=== PATIENT | female | born 1960 | race Caucasian/White ===

== ENCOUNTER 2020-08-23 10:15 | Outpatient (CLI) | payer BC, SELFPAY ==
--- NOTE | 2020-08-23 | ECG_ITS ---
Measurements Intervals [place] Rate: 85 P: 61 MA: 176 QRS: 27 QRSD: 78 T: 44 QT: 367 QTc: 438 Interpretive Statements SINUS RHYTHM POSSIBLE LEFT ATRIAL ENLARGEMENT CANNOT RULE OUT SEPTAL INFARCT, AGE INDETERMINATE ABNORMAL ECG Electronically Signed On 08-23-2020 10:34:51 CDT by Maverick Nice D.O.
== END 2020-08-23 10:16 | disposition home or self-care (01) ==
LOC: ANHCARD 10:18
PROVIDERS: PCP Internal Medicine; Visit Provider Podiatrist Foot & Ankle Surgery
DX: R03.0 Elevated blood-pressure reading, without diagnosis of hypertension (principal); R94.31 Abnormal electrocardiogram [ECG] [EKG]
CPT/HCPCS: 93005

== ENCOUNTER → 2020-09-16 08:26 | Outpatient (CLI) | payer BC, SELFPAY ==
[2020-09-16 16:57] LABS: SARS-CoV-2 RNA PCR Negative
== END ==
PROVIDERS: PCP Internal Medicine; Visit Provider Internal Medicine
DX: R05 Cough (principal); Z20.822 Contact with and (suspected) exposure to COVID-19
CPT/HCPCS: C9803; U0003; U0005

== ENCOUNTER 2020-12-02 09:29 | Outpatient (CLI) | payer BC, SELFPAY ==
--- NOTE | 2020-12-02 12:39 | WPDPFTINT ---
PFT Procedure Performed PFT Procedure Performed Plethysmography (Lung Vol) Diffusing Cap (DLCO) Flow Vol Loop Spirometry w/o Bronchodil PFT Interpretation This is a pulmonary function test with spirometry, plethysmography and diffusing capacity. The test was performed and results interpreted in accordance with the 2019 and 2005 ATS/ERS Task Force guidelines respectively using the Global Lung Function Initiative-2012 reference equations. Patient demonstrated good effort and cooperation. Reproducibility criteria were met. The quality of the spirometry maneuver was Grade A. Findings: Spirometry: The expiratory flow tracing demonstrates the mid expiratory plateau in airflow creating a mild convex inflection referred to as the knee pattern in 2 of three efforts. The contour the inspiratory flow tracing is normal. The FVC is 3.08 L, 97% predicted. The FEV1 is 2.50, 100% predicted. The FEV1: FVC ratio was 81%. Plethysmography: The total lung capacity is 4.97, 98% predicted. The functional residual capacity is 2.14 L, 74% predicted. The residual volume is 1.89 L, 95% predicted. Diffusing capacity: The absolute diffusion capacity is 18.0, 83% predicted. The diffusing capacity corrected for alveolar volume is 4.29, 97% predicted. Impression: The expiratory flow tracing demonstrates a reproducible mid explored expiratory plateau in airflow creating a convex inflection referred to as the knee pattern in 2 of 3 efforts. This pattern can be a normal variant or pathologic and has been attributed to a choke point section of the bronchial tree. The normal variant is more common in younger female patients, decreases with age and is more pronounced with a post bronchodilator efforts. The pattern has also been described with kyphosis, kyphoscoliosis, central obstructing mass, and post lung transplantation. Clinical correlation is recommended. The spirometry is normal without evidence of an obstructive abnormality. The lung volumes are normal. The diffusing capacity is normal. There are no prior studies for comparison
== END 2020-12-02 09:30 | disposition home or self-care (01) ==
LOC: ANHPFT 09:31
PROVIDERS: PCP Internal Medicine; Visit Provider Internal Medicine
DX: R05 Cough (principal)
CPT/HCPCS: 94375; 94726; 94729

== ENCOUNTER → 2020-12-18 01:09 | Outpatient (CLI) | payer BC, SELFPAY ==
[2020-12-19 01:36] LABS: SARS-CoV-2 RNA PCR Negative
== END ==
PROVIDERS: PCP Internal Medicine; Visit Provider Internal Medicine Gastroenterology
DX: Z01.812 Encounter for preprocedural laboratory examination (principal); Z20.822 Contact with and (suspected) exposure to COVID-19
CPT/HCPCS: C9803; U0003; U0005

== ENCOUNTER 2020-12-22 01:56 | Day surgery (SDC) | payer BC, SELFPAY ==
[2020-12-14 10:02] VITALS: BMI 34.4
[2020-12-22 09:26] VITALS: BP 150/90; PULSE 75; RESP 20; TEMP 35.9; O2SAT 100
[2020-12-22] MEDS: LACTATED RINGERS 1,000 ML 150 ML IV CONT (09:40)
--- NOTE | 2020-12-22 09:45 | WPDANESEPPF ---
Anes - Initial Pre Proc Eval Procedure: Operation Date: 12/22/20 10:00 Proposed Procedures p Screening Colonoscopy - Paul Eastman MD Date/Time: 12/22/20 09:45 Surgeon: Paul Eastman MD Pre Op Diagnosis: neoplasm screening Patient Data Age: 60 Gender: F Height: 1.63 m Weight: 91 kg Last Vital Signs Temp 35.9 C L 12/22/20 09:26 Pulse 75 12/22/20 09:26 Resp 20 12/22/20 09:26 BP 150/90 H 12/22/20 09:26 Pulse Ox 100 12/22/20 09:26 Allergies Allergy/AdvReac Type Severity Reaction Status Date / Time No Known Allergies Allergy Verified 12/22/20 09:25 Home Medications Medication Instructions Recorded Confirmed Type No Home Medications 12/14/20 12/22/20 History Patient hx anesthesia problems: none Family hx anesthesia problems: none [facility] Past Medical History Medical History (Updated 12/22/20 @ 09:45 by Fabricio Goode MD) Obesity Surgical History Surgical History (Updated 12/22/20 @ 09:45 by Fabricio Goode MD) History of cholecystectomy Social History Social History Smoking status: Never smoker Alcohol intake: current Drinks per week: 1 Substance use: never Substance use type: does not use Living arrangements: with family Spiritual care concerns: No Anes - Eval Final PreProcedure Day of Procedure 12/22/20 09:45 Patient weight: obese Heart: regular rate and rhythm Lungs: clear to auscultation Airway: Mallampati scale class II Neurological: alert and oriented Last oral intake: >/= 8 hours ASA classification: III Emergent: no Anesthetic plan: proceed Anesthesia type and monitoring: general GIVS and standard monitoring Informed Consent: The patient's anesthetic plan and its attendant risks and benefits were discussed with the patient/family/POA. Questions were solicited and answers provided to the satisfaction of the patient/family/POA.
--- NOTE | 2020-12-22 09:49 | WPDGICN ---
Assessment and Plan Assessment and plan (1) History of colon polyps: Code(s): Z86.010 - Personal history of colonic polyps Status: Acute Assessment and Plan: Patient has a distant history of colon polyps 8 years ago. Plan is for screening colonoscopy at this time. further recommendations will be given after endoscopy. GI Consult Note Consult date/time: 12/22/20 09:49 HPI: Karlie Gaytan is a 60 year old female Presents for screening colonoscopy. Patient reports having had colon polyps by colonoscopy 8 years ago. Patient states that her current weight appetite bowel movements are normal. Patient denies abdominal pain. Her family history is non contributory. She has had no bleeding. Review of Systems Review of Systems: All systems reviewed & are unremarkable except as noted in HPI and below PMFSH Past Medical History Medical History (Updated 12/22/20 @ 09:50 by Paul Eastman MD) Obesity Surgical History Surgical History (Updated 12/22/20 @ 09:45 by Fabricio Goode MD) History of cholecystectomy Social History Social History Smoking status: Never smoker Alcohol intake: current Drinks per week: 1 Substance use: never Substance use type: does not use Living arrangements: with family Spiritual care concerns: No Meds Home Medications and Allergies Home Medications Medication Instructions Recorded Confirmed Type No Home Medications 12/14/20 12/22/20 History Allergies Allergy/AdvReac Type Severity Reaction Status Date / Time No Known Allergies Allergy Verified 12/22/20 09:25 Vital Signs Vital Signs - 24 hr 12/22/20 09:26 Temperature 96.6 F L Pulse Rate 75 Respiratory Rate 20 Blood Pressure 150/90 H Pulse Oximetry 100 Exam Narrative: Physical exam reveals patient to be alert. Vital signs stable. HEENT exam is unremarkable. Patient is anicteric. Lungs are clear to auscultation and percussion. Heart is without murmur or extra sounds. Abdominal exam bowel sounds are present soft nontender with no organomegaly. Digital external rectal exam is normal.
[2020-12-22] MEDS: SIMETHICONE ORAL SUSPENSION 20 MG/0.3 ML 30 ML BOTTLE 0.6 ML IRRIGATION (10:08)
[2020-12-22 10:19] VITALS: BP 136/74; PULSE 76; RESP 15; O2SAT 98
[2020-12-22 10:29] VITALS: BP 147/93; PULSE 76; RESP 20; O2SAT 98
[2020-12-22 10:39] VITALS: BP 147/91; PULSE 76; RESP 16; O2SAT 99
== END 2020-12-22 10:52 | disposition home or self-care (01) ==
PROVIDERS: PCP Internal Medicine; Visit Provider Internal Medicine Gastroenterology
PROC: 0DJD8ZZ Inspection of Lower Intestinal Tract, Via Natural or Artificial Opening Endoscopic (ICD-10-PCS; CPT 45378; principal; 2020-12-22 10:00)
DX: Z12.11 Encounter for screening for malignant neoplasm of colon (principal); Z86.010 Personal history of colon polyps; K57.30 Diverticulosis of large intestine without perforation or abscess without bleeding; E66.9 Obesity, unspecified; Z68.34 Body mass index [BMI] 34.0-34.9, adult
CPT/HCPCS: 45378; J2001; J2704; J7120

== ENCOUNTER 2021-01-28 14:46 | Emergency (ER) | payer OTHER, BC, SELFPAY ==
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
[2021-01-28 15:03] VITALS: BP 186/99; PULSE 124; RESP 16; TEMP 36.6; O2SAT 99
== END 2021-01-28 15:20 | disposition home or self-care (01) ==
PROVIDERS: Emergency Provider Nurse Practitioner Family; PCP Internal Medicine
DX: S99.921A Unspecified injury of right foot, initial encounter (principal); V49.40XA Driver injured in collision with unspecified motor vehicles in traffic accident, initial encounter; M25.571 Pain in right ankle and joints of right foot; E66.9 Obesity, unspecified; Z68.36 Body mass index [BMI] 36.0-36.9, adult
CPT/HCPCS: 73610; 73630; 99213; G0463

== ENCOUNTER 2024-02-19 11:17 | Outpatient (CLI) | payer BC, SELFPAY ==
--- NOTE | ~2024-02-19 | US_ITS ---
US right upper quadrant INDICATION: Elevated liver function tests PROCEDURE: Realtime right upper abdominal ultrasound. COMPARISON: No prior studies for comparison. FINDINGS: The pancreas is normal without focal mass or pancreatic ductal dilation. Liver echotexture is increased, consistent with fatty infiltration. There is normal directional flow in the portal ve in. Gallbladder surgically absent. Common bile duct measures 5 mm. No sonographic Sanches's sign. IMPRESSION: 1: Fatty infiltration of the liver. Reviewed, dictated and finalized at location B.
== END 2024-02-19 11:18 | disposition home or self-care (01) ==
LOC: GOSHIMG 11:19
PROVIDERS: PCP Physician Assistant; Visit Provider Physician Assistant
DX: K76.0 Fatty (change of) liver, not elsewhere classified (principal); R74.8 Abnormal levels of other serum enzymes
CPT/HCPCS: 76705

== ENCOUNTER 2024-07-24 09:45 | Outpatient (CLI) | payer BC, SELFPAY ==
--- NOTE | 2024-07-24 | ECG_ITS ---
Test Date: 2024-07-24 10:38:23 Measurements Intervals [place] Rate: 66 P: 47 CO: 184 QRS: 9 QRSD: 80 T: 18 QT: 415 QTc: 438 Interpretive Statements SINUS RHYTHM LOW QRS VOLTAGE IN PRECORDIAL LEADS [QRS DEFLECTION < 1.0 mV IN CHEST LEADS] No previous ECG available for comparison Electronically Signed On 07-24-2024 11:48:38 CDT by Luis Alcantar M.D.
[2024-07-24 10:24] LABS: Anion Gap 10 mmol/L (4-12); Blood Urea Nitrogen 18 mg/dL (7-17); Calcium 9.4 mg/dL (8.4-10.2); Carbon Dioxide 29 mmol/L (22-30); Chloride 102 mmol/L (98-107); Estimated Glomerular Filt Rate > 60; Glucose 108 mg/dL (65-110); Potassium 4.5 mmol/L (3.4-5.0); Sodium 141 mmol/L (137-145)
--- OUTSIDE RECORDS SUMMARY | 2024-07-24 10:40 | XMS_ITS | Clinical Summary ---
Author Organization 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 30 Tablet 1 11/01/2021 5:44 PM CDT 2 Active azithromycin (Zithromax Z-Jonathan) 250 mg tablet TAKE 2 TABLETS (500 MG) BY ORAL ROUTE ONCE DAILY FOR 1 DAY THEN 1 TABLET (250 MG) BY ORAL ROUTE ONCE DAILY FOR 4 DAYS 6 Tablet 02/20/2022 2:27 PM CDT 2 Active methylPREDNISol one (Medrol, Jonathan,) 4 mg Tablets, Dose Pack TAKE DIRECTED ON PACKAGE. 21 Tablet 02/22/2022 6:28 PM CDT 2 Active methylPREDNISol one (MEDROL DOSPACK) 4 mg Tablets, Dose Pack USE DIRECTED 21 Tablet 09/17/2022 3:32 PM CDT 3 Active atorvastatin (Lipitor) 20 mg tablet Take 1 Tablet (20 mg) by mouth daily. 90 Tablet 1 01/10/2023 6:06 PM CDT 3 Active semaglutide, weight loss, (Wegovy) 0.25 mg/0.5 mL Pen Injector Inject 0.25 under the skin weekly for 4 weeks, then increase to 0.5 mg weekly. 2 mL 3 Active azithromycin (Zithromax Z-Jonathan) 250 mg tablet TAKE 2 TABLET BY MOUTH ON DAY 1, THEN TAKE 1 TABLET BY MOUTH DAILY FOR DAYS 2-5 6 Tablet 02/26/2023 5:21 PM CDT 3 Active atorvastatin (Lipitor) 20 mg tablet Take 1 Tablet (20 mg) by mouth daily. 90 Tablet 1 09/20/2023 1:07 PM CDT 3 Active atorvastatin (LIPITOR) 20 mg tablet Take 1 Tablet (20 mg) by mouth daily. 90 Tablet 3 02/20/2024 2:54 PM CDT 4 Active tirzepatide, weight loss, (Zepbound) 2.5 mg/0.5 mL Pen Injector Inject 2.5 mg under the skin once weekly 2 mL 4 Active famotidine (PEPCID) 20 mg tablet Take 1 Tablet (20 mg) by mouth daily at bedtime as needed. 30 Tablet 3 02/21/2024 1:23 PM CDT 4 Active omeprazole (PriLOSEC) 40 mg Capsule, Delayed Release(E.C.) Take 1 Capsule (40 mg) by mouth daily in the morning 1/2 to 1 hours before breakfast. 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 90 Tablet 3 05/10/2024 5:13 PM NUCLEAR WORKER TECHNICIAN 4 Active tirzepatide, weight loss, (Zepbound) 2.5 mg/0.5 mL Pen Injector Inject 2.5 mg by subcutaneous injection every 7 days. 2 mL 4 Active atorvastatin (LIPITOR) 20 mg tablet Take 1 Tablet (20 mg) by mouth daily. 90 Tablet 1 05/12/2024 3:45 PM NUCLEAR WORKER TECHNICIAN 5 Active Encounters Date Type Department Care Team Description 07/08/2024 External Device Data [facility] Provider, Abstract 07/08/2024 External Device Data [facility] Provider, Abstract 05/13/2024 External Device Data [facility] Provider, Abstract from Last 3 Months Social History Tobacco Use Types Packs/Day Years Used Date Smoking Tobacco: Never Assessed Comments Unknown Sex and Gender Information Value Date Recorded Sex Assigned at Not on file Legal Sex Female 3:27 PM CDT Gender Identity Not on file Sexual Orientation Not on file Plan of Treatment Health Maintenance Due Date Last Done Comments DTAP/TDAP/TD VACCINES (1 - Tdap) 10/10/1979 HPV/Cotest (21-29) 1981 CERVICAL CANCER SCREENING 1990 HPV/Cotest (30-65) 1990 PAP SMEAR 1990 BREAST CANCER SCREENING 2000 COLORECTAL SCREENING 2005 Colorectal Cancer Screening 2005 FIT-DNA Q 3 years 2005 FIT/FOBT Q 1 year 2005 Flex Sig/CT Colonography Q 5 years 2005 ZOSTER VACCINE (1 of 2) 2010 INFLUENZA VACCINE (#1) 2023 RSV VACCINE (60+ or ) (1 - 1-dose 75+ series) 10/10/2035 PNEUMOCOCCAL VACCINE 0-49 YEARS Aged Out No longer eligible based on patient's age to complete this topic Insurance [employer] Commercial
--- OUTSIDE RECORDS SUMMARY | 2024-07-24 10:41 | XMS_ITS | Data Portability ---
Author Organization [facility] Address [address] [place] [address] Care Team Providers Care Substation Engineer Name Role Phone MAGGY BURR Primary Care Provider Unavailab le Assessment Encounter Date Assessment Date Assessment LastModified by Organization Details LastModified Time 01/23/2024 01/23/2024 Mammogram due in Mar. colonoscopy has had two in the past . will await records to determine timeline. eye exam UTD dental overdue. no dental insurance. labs due. Not available 01/23/2024 11:50:07 Plan of Treatment Reminders Order Date Submit Date Provider Last Modified By Organization Details Last Modified Time Details Appointments ANY 15 2024 09:00A M WILIAN Abraham Not available Not available Not available Lab TSH + free T4, serum [facility]23 [facility]24 [email or web address], [address], [place], [address], 02/12/2024 13:26:19 CMP, serum or plasma 2023 024 [email or web address], [address], [place], [address], 02/12/2024 13:26:19 CBC w/ auto diff 2023 024 [email or web address], [address], [place], [address], 02/12/2024 13:26:19 vitami n B12 + folate , serum or blood 2023 024 [email or web address] [facility], [address], [place], [address], 02/12/2024 13:26:19 lipid panel, serum 2023 024 SHIRLENE [facility], [address], [place], [address], 02/12/2024 13:26:19 HbA1c (hemog lobin A1c), blood 2023 024 [email or web address] [facility], [address], [place], [address], 02/12/2024 13:26:19 insuli n, serum 2023 024 [email or web address] [facility], [address], [place], [address], 02/12/2024 13:01:09 Referral otolar yngolo gist referr al - chroni c nasal conges tion, Xylome tazoli ne user x 30 years. needs struct ural evalua tion. 2023 024 bladimir Alberto, [address], [place], [address], 03/25/2024 14:12:33 Procedures None record ed. Surgeries None record ed. Imaging MAMMO, screen ing, digita l, bilate ral 2023 024 SHIRLENE Not available 07/23/2024 04:10:02 Medication Orders mupiro shy 2 % topica l ointme nt 2023 024 [facility] [address], [address], [place], [place], [id number], 03/05/2024 18:26:46 amoxic illin 875 mg-pot assium clavul anate 125 mg tablet 102023 [facility], [address] , [place], [place], [id number], 03/05/2024 18:26:36 atorva statin 20 mg tablet 2023 [facility], [address] , [place], [place], [id number], 02/20/2024 12:12:26 Zepbou nd 2.5 mg/0.5 mL subcut aneous pen inject or 2023 [facility], [address] [facility] , [place], [place], [id number], 02/20/2024 12:08:27 Patient TargetsNo targets recorded. 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 needs structural evaluation. Referring Physician: Maggy Burr, Internal Medicine, Encounter Date: 01/23/2024 Results Created Date Observation Date Name Description Value Unit Range Abnormal Flag Note LastModifiedBy Organization Detail LastModifiedTime 02/18/2002/19/2024 ALK PHOS ISOEN ZYME alkaline phosphatase 157 IU/L 44-121 above high normal Not Available [facility] ([facility]) [address] [place], [address], 02/19/2024 15:11:24 02/18/20 24 02/19/2024 ALK PHOS ISOEN ZYME liver fraction: 65 % 18-85 Not Available [facility] ([facility]) [address] [place], [address], 02/19/2024 15:11:24 02/18/20 24 02/19/2024 ALK PHOS ISOEN ZYME bone fraction: 27 % 14-68 Not Available [facility] ([facility]) [address] [facility], [place], [address], 02/19/2024 15:11:24 02/18/20 24 02/19/2024 ALK PHOS ISOEN ZYME intestinal frac.: 7 % 0-18 Not Available [facility] ([facility]) [address] [facility], [place], [address], 02/19/2024 15:11:24 02/19/2002/19/2024 US, liver No observ ation record ed. [facility] [address], [place], [address], 02/20/2024 12:07:13 02/20/2004/09/2023 MAMMO , scree jefry, digit al, bilat eral No observ ation record ed. Not Available 2023 22:47:33 02/20/20 24 11/11/2013 colon oscop y scree jefry (PROC ) No observ ation record ed. [facility] Not Available 2023 11:52:31 Result Notes None recorded. Problems Name Problem SNOMED Code Status Onset Date Resolution Date Notes Provider Name and Address Organization Details Recorded Time Body mass index 30+ - obesity 919884027 Active 2023 WILIAN Abraham Attn: Scott mojica,[address] [facility], [place], [address], [facility] 4 11:25:42 Long-term drug therapy Active 2023 WILIAN Abraham Attn: Scott mojica,[address] [facility], [place], [address], [facility] 4 11:25:53 Hyperlipidemia 41832434 Active 2023 WILIAN Abraham Attn: Scott mojica,[address] [facility], [place], [address], [facility] 4 11:25:54 Obesity 249045247 Active 2023 WILIAN Abraham Attn: Scott mojica,[address] [facility], [place], [address], [facility] 4 11:25:58 Nasal congestion 36574214 Active 2023 WILIAN Abraham Attn: Scott mojica,[address] [facility], [place], [address], [facility] 18:47:37 Elevated blood-pressure reading without diagnosis of hypertension 000103848 Active 2023 WILIAN Abraham Attn: Scott mojica,[address] [facility], [place], [address], [facility] 4 12:15:13 Prediabetes 053603770 Active 2023 WILIAN Abraham Attn: Scott mojica,[address] [facility], [place], [address], [facility] 12:15:14 Problem Notes None recorded. Procedures Surgical History Date Name Laterality Status Provider Name and Address Organization Details Recorded Time colonoscopy completed Lashanda Freeman [facility] 02/20/2024 12:15:50 Imaging Results Imaging Date Name Status LastModified by Organiz ation Details LastModified Time 02/19/2024 US, liver completed [facility] [address], [place], [address], 02/20/2024 12:07:13 04/09/2023 MAMMO, screening, digital, bilateral completed Information not available 03/02/2024 22:47:33 11/11/2013 colonoscopy screening (PROC) completed [facility] Information not available 02/20/2024 11:52:31 Procedure Notes None recorded. Medical Equipment None Reported. Allergies No known drug allergies Medications Name Sig Start Date Stop Date Status Note LastModified by Organization Details LastModified Time losartan 50 mg tablet Take 1 tablet every day by oral route, for blood pressure. active Not Available Not Available No t Available atorvastati n 20 mg tablet Take 1 Tablet (20 mg) by mouth daily. 2024 active Not Available Not Available Not Avai lable azithromyci n 250 mg tablet 01/22 completed Not Available Not Available Not Available omeprazole 40 mg capsule,del ayed release active Not Available Not Available Not Available famotidine 20 mg tablet active Not Available Not Available Not Available mupirocin 2 % topical ointment 03/05 completed Not Available Not Available Not Available methylpredn isolone 4 mg tablets in a dose pack 03/05 completed Not Available Not Available Not Available amoxicillin 875 mg-potassiu m clavulanate 125 mg tablet Take 1 tablet every 12 hours by oral route with meal(s). 03/05 completed Not Available Not Available Not Available Vitamin D2 active Not Available Not Av ailable Not Available Xhance 93 mcg/actuati on breath activated aerosol INSTILL 1 SPRAY IN EACH NOSTRIL TWICE DAILY. active Not Available Not Available No t Available Zepbound 2.5 mg/0.5 mL subcutaneou s pen injector Inject 2.5 mg every week by subcutane ous route. 2023 active Not Available Not Available Not Avai lable Vitals Date Recorded Body height Respiratory rate Body mass index (BMI) Body weight Heart rate Oxygen saturation Oxygen saturation in Arterial blood by Pulse oximetry Systolic blood pressure Diastolic blood pressure Provider Name and Address Organization Details Last Updated DateTime 4 165.1 cm 20 /min 36.6 kg/m2 69292.9 3 g 88 /min 98 % 98 % 152 mm[Hg] 90 mm[Hg] Erlinda Rivas MA [facility] 4 11:15:15 Date Recorded Systolic blood pressure Diastolic blood pressure Provider Name and Address Organization Details Last Updated DateTime 01/23/2024 150 mm[Hg] 80 mm[Hg] WILIAN Abraham Attn: Accounting[address] [place], [address], [facility] 01/23/2024 12:05:23 Date Recorded Body height Body mass index (BMI) Body weight Respiratory rate Oxygen saturation Oxygen saturation in Arterial blood by Pulse oximetry Heart rate Systolic blood pressure Diastolic blood pressure Provider Name and Address Organization Details Last Updated DateTime 165.1 cm 35.9 kg/m2 12709.9 5 g 20 /min 99 % 99 % 79 /min 142 mm[Hg] 88 mm[Hg] Geraldine Burroughs MA [facility] 11:54:53 Date Recorded Systolic blood pressure Diastolic blood pressure Provider Name and Address Organization Details Last Updated DateTime 02/20/2024 150 mm[Hg] 90 mm[Hg] WILIAN Abraham Attn: Accounting,[address] [facility], [place], [address], [facility] 02/20/2024 12:14:34 Social History Question Answer Notes LastModified by Organizat ion Details LastModified Time Tobacco Smoking Status Never Smoker Erlinda Rivas MA [facility], [facility] 01/23/2024 11:16:03 Do You Have An Advance Directive? No Information n ot available 01/23/2024 What Is Your Level Of Alcohol Consumption? Occasional Information not available 01/23/2024 Are You Blind Or Do You Have Difficulty Seeing? No Information n ot available 01/23/2024 What Is Your Level Of Caffeine Consumption? Occasional Information not available 02/20/2024 In The 14 Days Before Symptom Onset, Have You Had Close Contact With A Laboratory-confirm ed COVID-19 While That Case Was Ill? No Information n ot available 01/23/2024 In The 14 Days Before Symptom Onset, Have You Had Close Contact With A Person Who Is Under Investigation For COVID-19 While That Person Was Ill? No Information not available 01/23/2024 Have You Been To An Area Known To Be High Risk For COVID-19? No Information not available 02/20/2024 Are You Deaf Or Do You Have Serious Difficulty Hearing? No Information not available 01/23/2024 What Type Of Diet Are You Following? REGULAR Information n ot available 01/23/2024 Are There Any Guns Present In Your Home? No Information not available 01/23/2024 What Was The Date Of Your Most Recent Tobacco Screening? 02/20/2024 Information not available 02/20/2024 What Is Your Relationship Status? Information not available 01/23/2024 Do You Use Your Seat Belt Or Car Seat Routinely? Yes Information not available 02/20/2024 Do You Have Smoke And Carbon Monoxide Detectors In Your Home? Yes Information not available 01/23/2024 Do You Feel Stressed (tense, Restless, Nervous, Or Anxious, Or Unable To Sleep At Night)? [id number] Information not available 02/20/2024 Do You Use Any Illicit Or Recreational Drugs? No Information not available 02/20/2024 Do You Use Sunscreen Routinely? No Information not available 01/23/2024 Has Tobacco Cessation Counseling Been Provided? No Information not available 02/20/2024 Do You Or Have You Ever Used Any Other Forms Of Tobacco Or Nicotine? No Information not available 02/20/2024 Sex: Female Functional Status Question Answer Note LastModified by Organizat ion Details LastModified Time Are you able to care for yourself? Yes Information not available 01/23/2024 What is your exercise level? Occasional walk Information not available 01/23/2024 Mental Status None recorded. Family History Relationship Description Onset Age of this Age Resolved Age Notes LastModified by Organization Details LastModified Time Father Alcoholism crevisma Not availab le 01/23/2024 12:36:41 Mother Alcoholism crevisma Not availab le 01/23/2024 12:36:41 Mother Diabetes mellitus crevisma Not available 2023 12:36:49 Mother Chronic obstructive pulmonary disease crevisma Not available 2023 12:51:30 Notes:Father-cancer Medical History Condition Response Have you had a mammogram in the last yea r? Have you had a colonoscopy in the last 1 0 years? Y Stroke Y Gynecological History Statement/Question Response Menses Monthly N If Post Menopausal, Age at Menopause 50 Current Control Method None Obstetrics History GPAL:G 2 P 2 0 0 3 Type Value Full Term 2 Living 3 Total 2 Immunizations Vaccine Type Date Status Note Provider Nam e and Address Organization Details Recorded Time Tdap 11/04/2020 completed Geraldine Burroughs MA [place], [place] [facility] 02/12/2024 13:13:51 zoster live 04/10/2014 completed Geraldine Burroughs MA [place], [place] - [facility] 02/12/2024 13:13:51 Past Encounters Encounter ID Performer Location Encounter Start Date Encounter Closed Date Diagnosis/Indication Diagnosis SNOMED-CT Code Diagnosis ICD10 Code Diagnosis Note [id number] WILIAN Abraham [facility] [employer] [address] [place] [address] 01/23/2024 11:06:20 01/23/2024 12:42:12 Body mass index 30+ - obesity 126997046 Z68.36 fasting insulin due. Hyperlipidemia 24360005 E78.5 fasting lipids are due. she is taking atorvastat in 10mg daily. Long-term drug therapy 221229930 Z79.899 cmp, cbc and b12, folate labs are due Obesity 310050988 E66.8 discussed healthy diet, exercise, controllin g carbohydra nilda and added sugars in the diet Screening mammography 24 208204 Z12.31 Annual mammogram ordered Thyroid di sorder screening 862919743 Z13.29 Routine thyroid tests ordered Diabetes m ellitus screening 071742117 Z13.1 Annual diabetes screen ordered Nasal congestion 9220980 0 R09.81 Patient has been instructed to taper down off of her nasal vasoconstr ictor spray and move to a nasal steroid spray that she could safely take for long-term [id number] WILIAN Abraham [facility] [employer] [place] [address] [employer] [address] 02/20/2024 11:35:33 02/20/2024 12:57:32 Body mass index 30+ - obesity 100523373 Z68.36 BMI is 35.9. start zepbound injectable therapy. no personal or family hx of Medullary thyroid cancer or MEN conditions . Obesity 978160917 E66.9 discussed healthy diet, exercise, controllin g carbohydra nilda and added sugars in the diet Prediabetes 515698884 R7 3.03 A1c is 6.3% on current labs. She will have to focus on decreasing simple carbohydra nilda in the added sugars in her diet. Any exercise will also be helpful to combat glucose elevations . Hyperlipidemia 40080644 E78.5 Labs reviewed and in terrific range. She is taking atorvastat in 10mg daily. Cellulitis and abscess of nose (external) 576753125 J34.0 For impetigo type lesion start Bactroban ointment as directed 3 times a day to the nose and start Augmentin 875 mg twice daily for 10 days. Elevated blood-pressure reading without diagnosis of hypertension 900231422 R03.0 track home readings for 1 week and call with results . medication suggested today. she would like to defer that. She will contact provider with updated home readings. Long-term drug therapy 241848853 Z79.899 Labs reviewed with patient today Health Concerns Section Related Observation LastModified by Organization Detai ls LastModified Time None Recorded Concern Status LastModified by Organization Details LastModified Time None Recorded Advance Directives Directive N: Payers Encounter Date Sequence Insurance Name Policy Number Policy Rivas Covered Member ID Rivas Member ID Guarantor Name 01/23/2024 1 [employer] [id number] Karlie Gaytan [id number] Karlie Gaytan 02/20/2024 1 [employer] [id number] Karlie Gaytan [id number] Karlie Gaytan Notes Date Note Type Note Provider Name and Address Organization Details Recorded Time 4 text/html HyperlipidemiaReported bypatient.Notes:pt is taking atorvastatin 20mg daily. WILIAN Abraham Attn: Accounting,[address] [facility], [place], [address], [facility] 01/29/2024 18:48:25 4 text/html HyperlipidemiaReported bypatient.Notes:pt is taking atorvastatin 20mg daily. Would like to discuss poison tricia on her face as well as a spot on her nose states that it did have some pus coming from it,doesn't itch but it does Hurt to touch States that she did notice a texture A1c of 6.3% on current labs indicating prediabetes is present. WILIAN Abraham Attn: Accounting[address] [place], [address], [facility] 03/02/2024 22:48:14 OBGyn Episode No OBEpisode recorded.
--- OUTSIDE RECORDS SUMMARY | 2024-07-24 10:41 | XMS_ITS | Data Portability ---
Author Organization [place] - [facility] [employer], Main Office Address [address] [place] [address] Assessment Encounter Date Assessment Date Assessment LastModified by Organization Details LastModified Time 09/19/2022 09/19/2022 Lipitor low-fat diet blood work will try to get GLP 1 started and covered see me back in 6 weeks if starts injection 6 months if not. Gets mammogram from gynecological assistant [email or web address] Not available 09/19/2022 22:52:07 04/19/2023 04/19/2023 Orthopedics Lipitor continue current therapy otherwise exercise smart diet see me in 6 months [email or web address] Not available 04/19/2023 22:02:47 Plan of Treatment Reminders Order Date Submit Date Provider Last Modified By Organization Details Last Modified Time Details Appointments None recorded. Lab lipid panel, serum 2022 023 [facility] (Lab), [address] [place] [address], [address], 3 13:31:00 CMP, serum or plasma 2022 023 [facility] (Lab), [address] [place] [address], [address], 3 13:31:05 CBC w/ auto diff 2022 023 [facility] (Lab), [address] [place] [address], [address], 3 13:08:32 TSH + free T4, serum 2022 023 [place] (Lab), [address] [place] [address], [address], 3 10:13:53 T3, free, serum or plasma 2022 023 [facility] ([facility]), [address], [place], [address], 3 13:43:29 Referral orthopedic surgeon referral 2022 023 [email or web address] Tulio Sin MD, [address], [place], [address], 4 08:46:29 Procedures None recorded. Surgeries None recorded. Imaging MAMMO, screening, digital, bilateral 2022 023 [place] Not available 3 12:00:28 Medication Orders Lipitor 20 mg tablet 2022 023 [email or web address] [facility], [address] [place] [address] , [place], [place], [id number], 3 22:02:08 Wegovy 0.25 mg/0.5 mL subcutaneou s pen injector 2022 023 [email or web address] [facility], [address] [place] [address] , [place], [place], [id number], 3 10:55:00 Lipitor 20 mg tablet 2022 023 [email or web address] [facility], [address] [place] [address] , [place], [place], [id number], 3 15:47:49 Patient TargetsNo targets recorded. Patient InstructionsNo instructions recorded. Reason for Referral Orthopedic Surgeon Referral for Pain of right shoulder joint Referring Physician: Isaias Gaytan, Internal Medicine, Encounter Date: 04/19/2023 Results Created Date Observation Date Name Description Value Unit Range Abnormal Flag Note LastModifiedBy Organization Detail LastModifiedTime 11/17/1911/16/2020 LIPID PANEL LDL cholesterol, calculated 131 mg/dL 0-130 high NIH LEATHA NSUS REPOR T RECOM MENDA TIONS FOR LDL: ADULT CHILD LOW RISK <130 <110 (OPTI MAL LDL) <100 ----- BORDE RLINE : 130-1 59 ----- HIGH RISK: >160 >130 A TRIGL YCERI DE RESUL T >400 INVAL IDATE S THE CALCU LATIO N FOR LDL FRACT IONAT ION - THE LDL RESUL T WILL NOT BE REPOR DANNIE. Not Available [facility] (Lab) [address] [place], [address], 11/16/2020 19:37:57 11/17/19 21 11/16/2020 LIPID PANEL cholesterol 229 mg/dL 140-19 9 high NIH LEATHA NSUS RECOM MENDA TION FOR AMINAH STERO L: ADULT CHILD LOW RISK: <200 <170 BORDE RLINE : <200- 239 ----- HIGH RISK: >240 >200 Not Available [facility] (Lab) [address] [place], [address], 11/16/2020 19:37:57 11/17/19 21 11/16/2020 LIPID PANEL triglyceride s 85 mg/dL 0-150 NIH LEATHA NSUS REPOR T RECOM MENDA TION FOR TRIGL YCERI LETICIA: ADULT CHILD LOW RISK: <150 ----- BODER LINE: 150-1 99 ----- HIGH RISK: >200 ----- Not Available [facility] (Lab) [address] [place], [address], 11/16/2020 19:37:57 11/17/19 21 11/16/2020 LIPID PANEL HDL cholesterol 81 mg/dL 40- Not Available [facility] (Lab) [address] [place], [address], 11/16/2020 19:37:57 11/17/19 21 11/16/2020 CBC/C OMPLE TE BLD COUNT W/DIF F red cell distribution width 13.2 % 11.8-1 5.5 Not Available [facility] (Lab) [address] [place], [address], 11/16/2020 13:16:31 11/17/19 21 11/16/2020 CBC/C OMPLE TE BLD COUNT W/DIF F white blood cells 8.0 x10'3 /uL 4.2-10 .8 Not Available [facility] (Lab) [address] [place], [address], 11/16/2020 13:16:31 11/17/19 21 11/16/2020 CBC/C OMPLE TE BLD COUNT W/DIF F red blood cells 4.56 x10'6 /uL 3.80-5 .20 Not Available [facility] (Lab) [address] [place], [address], 11/16/2020 13:16:31 11/17/19 21 11/16/2020 CBC/C OMPLE TE BLD COUNT W/DIF F hemoglobin 13.6 g/dL 12.0-1 5.6 Not Available [facility] (Lab) [address] [place], [address], 11/16/2020 13:16:31 11/17/19 21 11/16/2020 CBC/C OMPLE TE BLD COUNT W/DIF F hematocrit 42.8 % 35.7-4 5.7 Not Available [facility] (Lab) [address] [place], [address], 11/16/2020 13:16:31 11/17/19 21 11/16/2020 CBC/C OMPLE TE BLD COUNT W/DIF F mean red cell volume 93.9 fL 82.0-9 9.0 Not Available [facility] (Lab) [address] [place], [address], 11/16/2020 13:16:31 11/17/19 21 11/16/2020 CBC/C OMPLE TE BLD COUNT W/DIF F mean red cell hemoglobin 29.8 pg 27.0-3 3.0 Not Available [facility] (Lab) [address] [place], [address], 11/16/2020 13:16:31 11/17/19 21 11/16/2020 CBC/C OMPLE TE BLD COUNT W/DIF F mean RBC HGB concentratio n 31.8 g/dL 31.0-3 6.0 Not Available [facility] (Lab) [address] [place], [address], 11/16/2020 13:16:31 11/17/19 21 11/16/2020 CBC/C OMPLE TE BLD COUNT W/DIF F platelets 413 x10'3 /uL 150-40 0 high Not Available [facility] (Lab) [address] [place], [address], 11/16/2020 13:16:31 11/17/19 21 11/16/2020 CBC/C OMPLE TE BLD COUNT W/DIF F mean platelet volume 9.3 fL 9.0-12 .4 Not Available [facility] (Lab) [address] [place], [address], 11/16/2020 13:16:31 11/17/19 21 11/16/2020 CBC/C OMPLE TE BLD COUNT W/DIF F neutrophils 67.5 % 39.0-7 2.0 Not Available [facility] (Lab) [address] [place], [address], 11/16/2020 13:16:31 11/17/19 21 11/16/2020 CBC/C OMPLE TE BLD COUNT W/DIF F lymphocytes 18.4 % 16.0-4 7.0 Not Available [facility] (Lab) [address] [place], [address], 11/16/2020 13:16:31 11/17/19 21 11/16/2020 CBC/C OMPLE TE BLD COUNT W/DIF F monocytes 10.8 % 5.0-12 .0 Not Available [facility] (Lab) [address] [place], [address], 11/16/2020 13:16:31 11/17/19 21 11/16/2020 CBC/C OMPLE TE BLD COUNT W/DIF F eosinophils 2.0 % 1.0-7. 0 Not Available [facility] (Lab) [address] [place], [address], 11/16/2020 13:16:31 11/17/19 21 11/16/2020 CBC/C OMPLE TE BLD COUNT W/DIF F basophils 0.8 % 0.0-2. 0 Not Available [facility] (Lab) [address] [place], [address], 11/16/2020 13:16:31 11/17/19 21 11/16/2020 CBC/C OMPLE TE BLD COUNT W/DIF F immature granulocytes 0.5 % 0.00-0 .50 Not Available [facility] (Lab) [address] [place], [address], 11/16/2020 13:16:31 11/17/19 21 11/16/2020 CBC/C OMPLE TE BLD COUNT W/DIF F neutrophils, absolute count 5.41 x10'3 /uL 1.5-8. 0 Not Available [facility] (Lab) [address] [place], [address], 11/16/2020 13:16:31 11/17/19 21 11/16/2020 CBC/C OMPLE TE BLD COUNT W/DIF F lymphocytes, absolute count 1.47 x10'3 /uL 1.07-3 .43 Not Available [facility] (Lab) [address] [place], [address], 11/16/2020 13:16:31 11/17/19 21 11/16/2020 CBC/C OMPLE TE BLD COUNT W/DIF F monocytes, absolute count 0.86 x10'3 /uL 0.29-0 .99 Not Available [facility] (Lab) [address] [place], [address], 11/16/2020 13:16:31 11/17/19 21 11/16/2020 CBC/C OMPLE TE BLD COUNT W/DIF F eosinophils, absolute count 0.16 x10'3 /uL 0.02-0 .53 Not Available [facility] (Lab) [address] [place], [address], 11/16/2020 13:16:31 11/17/19 21 11/16/2020 CBC/C OMPLE TE BLD COUNT W/DIF F basophils, absolute count 0.06 x10'3 /uL 0.01-0 .08 Not Available [facility] (Lab) [address] [place], [address], 11/16/2020 13:16:31 11/17/19 21 11/16/2020 CBC/C OMPLE TE BLD COUNT W/DIF F immature granulocytes ,absolute 0.04 x10'3 /uL 0.00-0 .05 Not Available [facility] (Lab) [address] [place], [address], 11/16/2020 13:16:31 11/17/19 21 11/16/2020 CBC/C OMPLE TE BLD COUNT W/DIF F nucleated red blood cells 0.0 % -0 Not Available [facility] (Lab) [address] [place], [address], 11/16/2020 13:16:31 11/17/19 21 11/16/2020 CBC/C OMPLE TE BLD COUNT W/DIF F NRBC# 0.00 x10'3 /uL Not Available [facility] (Lab) [address] [place], [address], 11/16/2020 13:16:31 11/17/19 21 11/16/2020 COMPR EHENS PREET METAB OLIC PANEL carbon dioxide 28 mmol/ L 22-30 Not Available [facility] (Lab) [address] [place], [address], 11/16/2020 19:38:18 11/17/19 21 11/16/2020 COMPR EHENS PREET METAB OLIC PANEL sodium 140 mmol/ L 137-14 5 Not Available [facility] (Lab) [address] [place], [address], 11/16/2020 19:38:18 11/17/19 21 11/16/2020 COMPR EHENS PREET METAB OLIC PANEL potassium 4.4 mmol/ L 3.5-5. 1 Not Available [facility] (Lab) [address] [place], [address], 11/16/2020 19:38:18 11/17/19 21 11/16/2020 COMPR EHENS PREET METAB OLIC PANEL chloride 103 mmol/ L 98-107 Not Available [facility] (Lab) [address] [place], [address], 11/16/2020 19:38:18 11/17/19 21 11/16/2020 COMPR EHENS PREET METAB OLIC PANEL agap 13.4 mmol/ L 14-22 low Not Available [facility] (Lab) [address] [place], [address], 11/16/2020 19:38:18 11/17/19 21 11/16/2020 COMPR EHENS PREET METAB OLIC PANEL glucose 90 mg/dL 70-99 Not Available [facility] (Lab) [address] [place], [address], 11/16/2020 19:38:18 11/17/19 21 11/16/2020 COMPR EHENS PREET METAB OLIC PANEL BUN 17 mg/dL 8-19 Not Available [facility] (Lab) [address] [place], [address], 11/16/2020 19:38:18 11/17/19 21 11/16/2020 COMPR EHENS PREET METAB OLIC PANEL creatinine 0.63 mg/dL 0.66-1 .25 low Not Available [facility] (Lab) [address] [place], [address], 11/16/2020 19:38:18 11/17/19 21 11/16/2020 COMPR EHENS PREET METAB OLIC PANEL GFR >60 Refer ence Range : [place] ge GFR Healt hy Adult : >60 mL/mi n/1.7 3 m2 Chron ic Kidne y Disea se: 15-60 mL/mi n/1.7 3 m2 Kidne y Failu re: <15/m L/min /1.73 m2 www.n iddk. nih.g ov MDRD study equat ion hasn' t been valid ated in child maty <18 yrs of age, pregn ant women , the elder ly >85 yrs of age, or in some racia l or ethni c subgr oups, suc as Hispa nics. Outsi de the valid ated carol ann eters , estim ated GFR is less accur ate requi ring clini herman judgm ent on a case by case basis . Clini herman inter preta tion for other races and ages must be made by the clini jaspreet . Futhe rmore , any of th e limit ation s with the use of serum creat inine relat ed to nutri elana l statu s o r medic ation usage hasn' t accou nted for the MDRD Study equat ion. For perso ns < 18 yrs of age, a pedia tric GFR calcu lator can be locat ed on the [facility] websi te: https :[email or web address] mcclelland.hina marin.o cynthia/pr ofess ional s/kdo qi/gf r_cal culat or Not Available [facility] (Lab) [address] [place], [address], 11/16/2020 19:38:18 11/17/19 21 11/16/2020 COMPR EHENS PREET METAB OLIC PANEL alkaline phosphatase 88 U/L 38-126 Not Available [facility] (Lab) [address] [place], [address], 11/16/2020 19:38:18 11/17/19 21 11/16/2020 COMPR EHENS PREET METAB OLIC PANEL alanine aminotransfe rase 19 U/L 0-35 Not Available [facility] (Lab) [address] [place], [address], 11/16/2020 19:38:18 11/17/19 21 11/16/2020 COMPR EHENS PREET METAB OLIC PANEL aspartate aminotransfe rase 25 U/L 15-37 Not Available [facility] (Lab) [address] [place], [address], 11/16/2020 19:38:18 11/17/19 21 11/16/2020 COMPR EHENS PREET METAB OLIC PANEL bilirubin, total 0.60 mg/dL 0.20-1 .30 Not Available [facility] (Lab) [address] [place], [address], 11/16/2020 19:38:18 11/17/19 21 11/16/2020 COMPR EHENS PREET METAB OLIC PANEL calcium 9.5 mg/dL 8.4-10 .2 Not Available [facility] (Lab) [address] [place], [address], 11/16/2020 19:38:18 11/17/19 21 11/16/2020 COMPR EHENS PREET METAB OLIC PANEL total protein 7.7 g/dL 6.3-8. 2 Not Available [facility] (Lab) [address] [place], [address], 11/16/2020 19:38:18 11/17/19 21 11/16/2020 COMPR EHENS PREET METAB OLIC PANEL albumin 4.8 g/dL 3.4-5. 0 Not Available [facility] (Lab) [address] [place], [address], 11/16/2020 19:38:18 11/17/19 21 11/16/2020 COMPR EHENS PREET METAB OLIC PANEL globulin 2.9 g/dL 2.6-4. 2 Not Available [facility] (Lab) [address] [facility] [place], [address], 11/16/2020 19:38:18 11/17/19 21 11/16/2020 COMPR EHENS PREET METAB OLIC PANEL A/G ratio 1.7 ratio 1.0-2. 0 Not Available [facility] (Lab) [address] [place], [address], 11/16/2020 19:38:18 10/28/19 22 10/27/2021 COMPR EHENS PREET METAB OLIC PANEL carbon dioxide 27 mmol/ L 22-30 Not Available [facility] (Lab) [address] [place], [address], 10/27/2021 13:25:12 10/28/19 22 10/27/2021 COMPR EHENS PREET METAB OLIC PANEL sodium 139 mmol/ L 137-14 5 Not Available [facility] (Lab) [address] [place], [address], 10/27/2021 13:25:12 10/28/19 22 10/27/2021 COMPR EHENS PREET METAB OLIC PANEL potassium 4.4 mmol/ L 3.5-5. 1 Not Available [facility] (Lab) [address] [place], [address], 10/27/2021 13:25:12 10/28/19 22 10/27/2021 COMPR EHENS PREET METAB OLIC PANEL chloride 105 mmol/ L 98-107 Not Available [facility] (Lab) [address] [place], [address], 10/27/2021 13:25:12 10/28/19 22 10/27/2021 COMPR EHENS PREET METAB OLIC PANEL anion gap 11.4 mmol/ L 14-22 low Not Available [facility] (Lab) [address] [place], [address], 10/27/2021 13:25:12 10/28/19 22 10/27/2021 COMPR EHENS PREET METAB OLIC PANEL glucose 102 mg/dL 70-99 high Not Available [facility] (Lab) [address] [place], [address], 10/27/2021 13:25:12 10/28/19 22 10/27/2021 COMPR EHENS PREET METAB OLIC PANEL BUN 18 mg/dL 8-19 Not Available [facility] (Lab) [address] [place], [address], 10/27/2021 13:25:12 10/28/19 22 10/27/2021 COMPR EHENS PREET METAB OLIC PANEL creatinine 0.72 mg/dL 0.66-1 .25 Not Available [facility] (Lab) [address] [place], [address], 10/27/2021 13:25:12 10/28/19 22 10/27/2021 COMPR EHENS PREET METAB OLIC PANEL aspartate aminotransfe rase 26 U/L 15-37 Not Available [facility] (Lab) [address] [place], [address], 10/27/2021 13:25:12 10/28/19 22 10/27/2021 COMPR EHENS PREET METAB OLIC PANEL GFR >60 Refer ence Range : [place] ge GFR Healt hy Adult : >60 mL/mi n/1.7 3 m2 Chron ic Kidne y Disea se: 15-60 mL/mi n/1.7 3 m2 Kidne y Failu re: <15/m L/min /1.73 m2 www.n iddk. nih.g ov The MDRD study equat ion has not been valid ated in child maty <18 years of age; pregn ant women ; the elder ly >85 years of age; or in some racia l or ethni c subgr oups, such as Hispedro nics. Outsi de the valid ated carol ann eters , estim ated GFR is less accur ate, requi ring clini herman judgm ent on a case- by-ca se basis . Clini herman inter preta tion for other races and ages must be made by the clini jaspreet. The MDRD study equat ion has not been valid ated for the evalu ation of serum creat inine relat ed to nutri elana l statu s or medic ation usage . For perso ns <18 years of age, a pedia tric GFR calcu lator is avail able on the [facility] websi te: https ://damian mcclelland.hina marin.cedrick rg/pr ofess ional s/kdo qi/gf r_cal culat or Not Available [facility] (Lab) [address] [place], [address], 10/27/2021 13:25:12 10/28/19 22 10/27/2021 COMPR EHENS PREET METAB OLIC PANEL alkaline phosphatase 99 U/L 38-126 Not Available [facility] (Lab) [address] [place], [address], 10/27/2021 13:25:12 10/28/19 22 10/27/2021 COMPR EHENS PREET METAB OLIC PANEL alanine aminotransfe rase 24 U/L 0-35 Not Available [facility] (Lab) [address] [place], [address], 10/27/2021 13:25:12 10/28/19 22 10/27/2021 COMPR EHENS PREET METAB OLIC PANEL bilirubin, total 0.60 mg/dL 0.20-1 .30 Not Available [facility] (Lab) [address] [place], [address], 10/27/2021 13:25:12 10/28/19 22 10/27/2021 COMPR EHENS PREET METAB OLIC PANEL calcium 9.7 mg/dL 8.4-10 .2 Not Available [facility] (Lab) [address] [place], [address], 10/27/2021 13:25:12 10/28/19 22 10/27/2021 COMPR EHENS PREET METAB OLIC PANEL total protein 7.6 g/dL 6.3-8. 2 Not Available [facility] (Lab) [address] [place], [address], 10/27/2021 13:25:12 10/28/19 22 10/27/2021 COMPR EHENS PREET METAB OLIC PANEL albumin 4.6 g/dL 3.4-5. 0 Not Available [facility] (Lab) [address] [place], [address], 10/27/2021 13:25:12 10/28/19 22 10/27/2021 COMPR EHENS PREET METAB OLIC PANEL globulin 3.0 g/dL 2.6-4. 2 Not Available [facility] (Lab) [address] [place], [address], 10/27/2021 13:25:12 10/28/19 22 10/27/2021 COMPR EHENS PREET METAB OLIC PANEL A/G ratio 1.5 ratio 1.0-2. 0 Not Available [facility] (Lab) [address] [place], [address], 10/27/2021 13:25:12 10/28/19 22 10/27/2021 CBC/C OMPLE TE BLD COUNT W/DIF F mean red cell volume 93.0 fL 82.0-9 9.0 Not Available [facility] (Lab) [address] [place], [address], 10/27/2021 12:54:45 10/28/19 22 10/27/2021 CBC/C OMPLE TE BLD COUNT W/DIF F white blood cells 8.3 x10'3 /uL 4.2-10 .8 Not Available [facility] (Lab) [address] [place], [address], 10/27/2021 12:54:45 10/28/19 22 10/27/2021 CBC/C OMPLE TE BLD COUNT W/DIF F red blood cells 4.72 x10'6 /uL 3.80-5 .20 Not Available [facility] (Lab) [address] [place], [address], 10/27/2021 12:54:45 10/28/19 22 10/27/2021 CBC/C OMPLE TE BLD COUNT W/DIF F hemoglobin 14.1 g/dL 12.0-1 5.6 Not Available [facility] (Lab) [address] [place], [address], 10/27/2021 12:54:45 10/28/19 22 10/27/2021 CBC/C OMPLE TE BLD COUNT W/DIF F hematocrit 43.9 % 35.7-4 5.7 Not Available [facility] (Lab) [address] [place], [address], 10/27/2021 12:54:45 10/28/19 22 10/27/2021 CBC/C OMPLE TE BLD COUNT W/DIF F mean red cell hemoglobin 29.9 pg 27.0-3 3.0 Not Available [facility] (Lab) [address] [place], [address], 10/27/2021 12:54:45 10/28/19 22 10/27/2021 CBC/C OMPLE TE BLD COUNT W/DIF F mean RBC HGB concentratio n 32.1 g/dL 31.0-3 6.0 Not Available [facility] (Lab) [address] [place], [address], 10/27/2021 12:54:45 10/28/19 22 10/27/2021 CBC/C OMPLE TE BLD COUNT W/DIF F neutrophils 68.1 % 39.0-7 2.0 Not Available [facility] (Lab) [address] [place], [address], 10/27/2021 12:54:45 10/28/19 22 10/27/2021 CBC/C OMPLE TE BLD COUNT W/DIF F red cell distribution width 13.0 % 11.8-1 5.5 Not Available [facility] (Lab) [address] [facility] [place], [address], 10/27/2021 12:54:45 10/28/19 22 10/27/2021 CBC/C OMPLE TE BLD COUNT W/DIF F platelets 408 x10'3 /uL 150-40 0 high Not Available [facility] (Lab) [address] [place], [address], 10/27/2021 12:54:45 10/28/19 22 10/27/2021 CBC/C OMPLE TE BLD COUNT W/DIF F mean platelet volume 9.3 fL 9.0-12 .4 Not Available [facility] (Lab) [address] [place], [address], 10/27/2021 12:54:45 10/28/19 22 10/27/2021 CBC/C OMPLE TE BLD COUNT W/DIF F lymphocytes 19.4 % 16.0-4 7.0 Not Available [facility] (Lab) [address] [place], [address], 10/27/2021 12:54:45 10/28/19 22 10/27/2021 CBC/C OMPLE TE BLD COUNT W/DIF F monocytes 9.8 % 5.0-12 .0 Not Available [facility] (Lab) [address] [place], [address], 10/27/2021 12:54:45 10/28/19 22 10/27/2021 CBC/C OMPLE TE BLD COUNT W/DIF F eosinophils 1.4 % 1.0-7. 0 Not Available [facility] (Lab) [address] [place], [address], 10/27/2021 12:54:45 10/28/19 22 10/27/2021 CBC/C OMPLE TE BLD COUNT W/DIF F basophils 0.8 % 0.0-2. 0 Not Available [facility] (Lab) [address] [place], [address], 10/27/2021 12:54:45 10/28/19 22 10/27/2021 CBC/C OMPLE TE BLD COUNT W/DIF F immature granulocytes 0.5 % 0.00-0 .50 Not Available [facility] (Lab) [address] [place], [address], 10/27/2021 12:54:45 10/28/19 22 10/27/2021 CBC/C OMPLE TE BLD COUNT W/DIF F neutrophils, absolute count 5.66 x10'3 /uL 1.5-8. 0 Not Available [facility] (Lab) [address] [place], [address], 10/27/2021 12:54:45 10/28/19 22 10/27/2021 CBC/C OMPLE TE BLD COUNT W/DIF F lymphocytes, absolute count 1.62 x10'3 /uL 1.07-3 .43 Not Available [facility] (Lab) [address] [place], [address], 10/27/2021 12:54:45 10/28/19 22 10/27/2021 CBC/C OMPLE TE BLD COUNT W/DIF F monocytes, absolute count 0.82 x10'3 /uL 0.29-0 .99 Not Available [facility] (Lab) [address] [place], [address], 10/27/2021 12:54:45 10/28/19 22 10/27/2021 CBC/C OMPLE TE BLD COUNT W/DIF F eosinophils, absolute count 0.12 x10'3 /uL 0.02-0 .53 Not Available [facility] (Lab) [address] [place], [address], 10/27/2021 12:54:45 10/28/19 22 10/27/2021 CBC/C OMPLE TE BLD COUNT W/DIF F basophils, absolute count 0.07 x10'3 /uL 0.01-0 .08 Not Available [facility] (Lab) [address] [place], [address], 10/27/2021 12:54:45 10/28/19 22 10/27/2021 CBC/C OMPLE TE BLD COUNT W/DIF F immature granulocytes ,absolute 0.04 x10'3 /uL 0.00-0 .05 Not Available [facility] (Lab) [address] [place], [address], 10/27/2021 12:54:45 10/28/19 22 10/27/2021 CBC/C OMPLE TE BLD COUNT W/DIF F nucleated red blood cells 0.0 % -0 Not Available [facility] (Lab) [address] [place], [address], 10/27/2021 12:54:45 10/28/19 22 10/27/2021 CBC/C OMPLE TE BLD COUNT W/DIF F NRBC# 0.00 x10'3 /uL Not Available [facility] (Lab) [address] [place], [address], 10/27/2021 12:54:45 10/28/19 22 10/27/2021 LIPID PANEL cholesterol 245 mg/dL 140-19 9 high NIH LEATHA NSUS RECOM MENDA TION FOR AMINAH STERO L: ADULT CHILD LOW RISK: <200 <170 BORDE RLINE : <200- 239 ----- HIGH RISK: >240 >200 Not Available [facility] (Lab) [address] [place], [address], 10/27/2021 13:25:05 10/28/19 22 10/27/2021 LIPID PANEL triglyceride s 87 mg/dL 0-150 NIH LEATHA NSUS REPOR T RECOM MENDA TION FOR TRIGL YCERI LETICIA: ADULT CHILD LOW RISK: <150 ----- BODER LINE: 150-1 99 ----- HIGH RISK: >200 ----- Not Available [facility] (Lab) [address] [place], [address], 10/27/2021 13:25:05 10/28/19 22 10/27/2021 LIPID PANEL HDL cholesterol 77 mg/dL 40- Not Available [facility] (Lab) [address] [place], [address], 10/27/2021 13:25:05 10/28/19 22 10/27/2021 LIPID PANEL LDL cholesterol, calculated 151 mg/dL 0-130 high NIH LEATHA NSUS REPOR T RECOM MENDA TIONS FOR LDL: ADULT CHILD LOW RISK <130 <110 (OPTI MAL LDL) <100 ----- BORDE RLINE : 130-1 59 ----- HIGH RISK: >160 >130 A TRIGL YCERI DE RESUL T >400 INVAL IDATE S THE CALCU LATIO N FOR LDL FRACT IONAT ION - THE LDL RESUL T WILL NOT BE REPOR DANNIE. Not Available [facility] (Lab) [address] [place], [address], 10/27/2021 13:25:05 01/19/20 23 01/18/2023 CBC/C OMPLE TE BLD COUNT W/DIF F white blood cells 8.0 x10'3 /uL 4.2-10 .8 Not Available [facility] (Lab) [address] [place], [address], 01/18/2023 13:08:32 01/19/20 23 01/18/2023 CBC/C OMPLE TE BLD COUNT W/DIF F red blood cells 4.79 x10'6 /uL 3.80-5 .20 Not Available [facility] (Lab) [address] [place], [address], 01/18/2023 13:08:32 01/19/20 23 01/18/2023 CBC/C OMPLE TE BLD COUNT W/DIF F hemoglobin 14.3 g/dL 12.0-1 5.6 Not Available [facility] (Lab) [address] [place], [address], 01/18/2023 13:08:32 01/19/20 23 01/18/2023 CBC/C OMPLE TE BLD COUNT W/DIF F hematocrit 44.1 % 35.7-4 5.7 Not Available [facility] (Lab) [address] [place], [address], 01/18/2023 13:08:32 01/19/20 23 01/18/2023 CBC/C OMPLE TE BLD COUNT W/DIF F mean red cell volume 92.1 fL 82.0-9 9.0 Not Available [facility] (Lab) [address] [place], [address], 01/18/2023 13:08:32 01/19/20 23 01/18/2023 CBC/C OMPLE TE BLD COUNT W/DIF F mean red cell hemoglobin 29.9 pg 27.0-3 3.0 Not Available [facility] (Lab) [address] [place], [address], 01/18/2023 13:08:32 01/19/20 23 01/18/2023 CBC/C OMPLE TE BLD COUNT W/DIF F mean RBC HGB concentratio n 32.4 g/dL 31.0-3 6.0 Not Available [facility] (Lab) [address] [place], [address], 01/18/2023 13:08:32 01/19/20 23 01/18/2023 CBC/C OMPLE TE BLD COUNT W/DIF F red cell distribution width 12.7 % 11.8-1 5.5 Not Available [facility] (Lab) [address] [place], [address], 01/18/2023 13:08:32 01/19/20 23 01/18/2023 CBC/C OMPLE TE BLD COUNT W/DIF F platelets 433 x10'3 /uL 150-40 0 high Not Available [facility] (Lab) [address] [place], [address], 01/18/2023 13:08:32 01/19/20 23 01/18/2023 CBC/C OMPLE TE BLD COUNT W/DIF F mean platelet volume 9.1 fL 9.0-12 .4 Not Available [facility] (Lab) [address] [place], [address], 01/18/2023 13:08:32 01/19/20 23 01/18/2023 CBC/C OMPLE TE BLD COUNT W/DIF F neutrophils 66.2 % 39.0-7 2.0 Not Available [facility] (Lab) [address] [place], [address], 01/18/2023 13:08:32 01/19/20 23 01/18/2023 CBC/C OMPLE TE BLD COUNT W/DIF F lymphocytes 19.2 % 16.0-4 7.0 Not Available [facility] (Lab) [address] [place], [address], 01/18/2023 13:08:32 09/2101/18/2023 CBC/C OMPLE TE BLD COUNT W/DIF F monocytes 10.2 % 5.0-12 .0 Not Available [facility] (Lab) [address] [place], [address], 01/18/2023 13:08:32 01/19/20 23 01/18/2023 CBC/C OMPLE TE BLD COUNT W/DIF F eosinophils 3.4 % 1.0-7. 0 Not Available [facility] (Lab) [address] [place], [address], 01/18/2023 13:08:32 01/19/20 23 01/18/2023 CBC/C OMPLE TE BLD COUNT W/DIF F basophils 0.9 % 0.0-2. 0 Not Available [facility] (Lab) [address] [place], [address], 01/18/2023 13:08:32 01/19/20 23 01/18/2023 CBC/C OMPLE TE BLD COUNT W/DIF F immature granulocytes 0.1 % 0.00-0 .50 Not Available [facility] (Lab) [address] [place], [address], 01/18/2023 13:08:32 01/19/20 23 01/18/2023 CBC/C OMPLE TE BLD COUNT W/DIF F neutrophils, absolute count 5.28 x10'3 /uL 1.5-8. 0 Not Available [facility] (Lab) [address] [place], [address], 01/18/2023 13:08:32 01/19/20 23 01/18/2023 CBC/C OMPLE TE BLD COUNT W/DIF F lymphocytes, absolute count 1.53 x10'3 /uL 1.07-3 .43 Not Available [facility] (Lab) [address] [place], [address], 01/18/2023 13:08:32 01/19/20 23 01/18/2023 CBC/C OMPLE TE BLD COUNT W/DIF F monocytes, absolute count 0.81 x10'3 /uL 0.29-0 .99 Not Available [facility] (Lab) [address] [place], [address], 01/18/2023 13:08:32 01/19/20 23 01/18/2023 CBC/C OMPLE TE BLD COUNT W/DIF F eosinophils, absolute count 0.27 x10'3 /uL 0.02-0 .53 Not Available [facility] (Lab) [address] [place], [address], 01/18/2023 13:08:32 01/19/20 23 01/18/2023 CBC/C OMPLE TE BLD COUNT W/DIF F basophils, absolute count 0.07 x10'3 /uL 0.01-0 .08 Not Available [facility] (Lab) [address] [place], [address], 01/18/2023 13:08:32 01/19/20 23 01/18/2023 CBC/C OMPLE TE BLD COUNT W/DIF F immature granulocytes ,absolute 0.01 x10'3 /uL 0.00-0 .05 Not Available [facility] (Lab) [address] [place], [address], 01/18/2023 13:08:32 01/19/20 23 01/18/2023 CBC/C OMPLE TE BLD COUNT W/DIF F nucleated red blood cells 0.0 % -0 Not Available [facility] (Lab) [address] [place], [address], 01/18/2023 13:08:32 01/19/20 23 01/18/2023 CBC/C OMPLE TE BLD COUNT W/DIF F NRBC# 0.00 x10'3 /uL Not Available [facility] (Lab) [address] [place], [address], 01/18/2023 13:08:32 01/19/20 23 01/18/2023 LIPID PANEL cholesterol 183 mg/dL 140-19 9 NIH LEATHA NSUS RECOM MENDA TION FOR AMINAH STERO L: ADULT CHILD LOW RISK: <200 <170 BORDE RLINE : <200- 239 ----- HIGH RISK: >240 >200 Not Available [facility] (Lab) [address] [place], [address], 01/18/2023 13:31:00 01/19/20 23 01/18/2023 LIPID PANEL triglyceride s 66 mg/dL 0-150 NIH LEATHA NSUS REPOR T RECOM MENDA TION FOR TRIGL YCERI LETICIA: ADULT CHILD LOW RISK: <150 ----- BODER LINE: 150-1 99 ----- HIGH RISK: >200 ----- Not Available [facility] (Lab) [address] [place], [address], 01/18/2023 13:31:00 01/19/20 23 01/18/2023 LIPID PANEL HDL cholesterol 65 mg/dL 40- Not Available [facility] (Lab) [address] [place], [address], 01/18/2023 13:31:00 01/19/20 23 01/18/2023 LIPID PANEL LDL cholesterol, calculated 105 mg/dL 0-130 NIH LEATHA NSUS REPOR T RECOM MENDA TIONS FOR LDL: ADULT CHILD LOW RISK <130 <110 (OPTI MAL LDL) <100 ----- BORDE RLINE : 130-1 59 ----- HIGH RISK: >160 >130 A TRIGL YCERI DE RESUL T >400 INVAL IDATE S THE CALCU LATIO N FOR LDL FRACT IONAT ION - THE LDL RESUL T WILL NOT BE REPOR DANNIE. Not Available [facility] (Lab) [address] [place], [address], 01/18/2023 13:31:00 01/19/20 23 01/18/2023 COMPR EHENS PREET METAB OLIC PANEL sodium 141 mmol/ L 137-14 5 Not Available [facility] (Lab) [address] [place], [address], 01/18/2023 13:31:05 01/19/20 23 01/18/2023 COMPR EHENS PREET METAB OLIC PANEL potassium 4.5 mmol/ L 3.5-5. 1 Not Available [facility] (Lab) [address] [place], [address], 01/18/2023 13:31:05 01/19/20 23 01/18/2023 COMPR EHENS PREET METAB OLIC PANEL chloride 103 mmol/ L 98-107 Not Available [facility] (Lab) [address] [place], [address], 01/18/2023 13:31:05 01/19/20 23 01/18/2023 COMPR EHENS PREET METAB OLIC PANEL carbon dioxide 24 mmol/ L 22-30 Not Available [facility] (Lab) [address] [place], [address], 01/18/2023 13:31:05 01/19/20 23 01/18/2023 COMPR EHENS PREET METAB OLIC PANEL anion gap 18.5 mmol/ L 14-22 Not Available [facility] (Lab) [address] [place], [address], 01/18/2023 13:31:05 01/19/20 23 01/18/2023 COMPR EHENS PREET METAB OLIC PANEL glucose 97 mg/dL 70-99 Not Available [facility] (Lab) [address] [place], [address], 01/18/2023 13:31:05 01/19/20 23 01/18/2023 COMPR EHENS PREET METAB OLIC PANEL BUN 14 mg/dL 8-19 Not Available [facility] (Lab) [address] [place], [address], 01/18/2023 13:31:05 01/19/20 23 01/18/2023 COMPR EHENS PREET METAB OLIC PANEL creatinine 0.70 mg/dL 0.66-1 .25 Not Available [facility] (Lab) [address] [place], [address], 01/18/2023 13:31:05 01/19/20 23 01/18/2023 COMPR EHENS PREET METAB OLIC PANEL GFR >60 Refer ence Range : [place] ge GFR Healt hy Adult : >60 mL/mi n/1.7 3 m2 Chron ic Kidne y Disea se: 15-60 mL/mi n/1.7 3 m2 Kidne y Failu re: <15/m L/min /1.73 m2 www.n iddk. nih.g ov The MDRD study equat ion has not been valid ated in child maty <18 years of age; pregn ant women ; the elder ly >85 years of age; or in some racia l or ethni c subgr oups, such as Hismi nics. Outsi de the valid ated carol ann eters , estim ated GFR is less accur ate, requi ring clini herman judgm ent on a case- by-ca se basis . Clini herman inter preta tion for other races and ages must be made by the clini jaspreet. The MDRD study equat ion has not been valid ated for the evalu ation of serum creat inine relat ed to nutri elana l statu s or medic ation usage . For perso ns <18 years of age, a pedia tric GFR calcu lator is avail able on the F websi te: https ://ww w.kid tania.o rg/pr ofess ional s/kdo qi/gf r_cal culat or Not Available [facility] (Lab) [address] [place], [address], 01/18/2023 13:31:05 01/19/20 23 01/18/2023 COMPR EHENS PREET METAB OLIC PANEL alkaline phosphatase 105 U/L 38-126 Not Available [facility] (Lab) [address] [place], [address], 01/18/2023 13:31:05 01/19/20 23 01/18/2023 COMPR EHENS PREET METAB OLIC PANEL alanine aminotransfe rase 28 U/L 0-35 Not Available [facility] (Lab) [address] [place], [address], 01/18/2023 13:31:05 01/19/20 23 01/18/2023 COMPR EHENS PREET METAB OLIC PANEL aspartate aminotransfe rase 25 U/L 15-37 Not Available [facility] (Lab) [address] [place], [address], 01/18/2023 13:31:05 01/19/20 23 01/18/2023 COMPR EHENS PREET METAB OLIC PANEL bilirubin, total 0.50 mg/dL 0.20-1 .30 Not Available [facility] (Lab) [address] [place], [address], 01/18/2023 13:31:05 01/19/20 23 01/18/2023 COMPR EHENS PREET METAB OLIC PANEL calcium 9.4 mg/dL 8.4-10 .2 Not Available [facility] (Lab) [address] [place], [address], 01/18/2023 13:31:05 01/19/20 23 01/18/2023 COMPR EHENS PREET METAB OLIC PANEL total protein 7.5 g/dL 6.3-8. 2 Not Available [facility] (Lab) [address] [place], [address], 01/18/2023 13:31:05 01/19/20 23 01/18/2023 COMPR EHENS PREET METAB OLIC PANEL albumin 4.6 g/dL 3.4-5. 0 Not Available [facility] (Lab) [address] [place], [address], 01/18/2023 13:31:05 01/19/20 23 01/18/2023 COMPR EHENS PREET METAB OLIC PANEL globulin 2.9 g/dL 2.6-4. 2 Not Available [facility] (Lab) [address] [place], [address], 01/18/2023 13:31:05 01/19/20 23 01/18/2023 COMPR EHENS PREET METAB OLIC PANEL A/G ratio 1.6 ratio 1.0-2. 0 Not Available [facility] (Lab) [address] [place], [address], 01/18/2023 13:31:05 01/19/20 23 01/18/2023 T4 FREE free T4 1.16 NG/dL 0.78-2 .19 Not Available [facility] (Lab) [address] [place], [address], 01/18/2023 13:43:27 01/19/20 23 01/18/2023 T3 FREE free T3 3.5 pg/mL 2.77-5 .27 Not Available [facility] (Lab) [address] [place], [address], 01/18/2023 13:43:29 01/19/20 23 01/18/2023 TSH thyroid-stim ulating hormone 1.010 uIU/m L 0.465- 4.680 Not Available [facility] (Lab) [address] [place], [address], 01/18/2023 14:08:36 11/17/19 21 XR, chest , 2 view [facility] [address] [place] [address] Patien t Name: JOSE GAYTAN [facility] Access ion #: [id number] Sex: F : 1960 0 Locati on: MO2 Attend ing Physic melvin: PRAMOD GAYTANi ng Physic melvin: PRAMOD GAYTAN Exam Date: 9:17 AM Exam Name: XR CHEST 2V Admitt ing Diagno sis(es ): RADIOL OGY REPORT - FINAL EXAM: XR CHEST 2V HISTOR Y: cough COMPAR JOHNNIE: None. TECHNI QUE: Two views of the chest were perfor med. FINDIN GS: No pneumo thorax , consol idativ e infilt rates, pleura l effusi ons, or pulmon pippa edema. The heart is not enlarg ed. IMPRES SEBASTIAN: Unrema rkable 2 view chest. Page 1 of 2 [facility] Patikalli t Name: CINTHYA GAYTANAllyson [facility] Access ion #: [id number] Sex: F : 1960 0 Exam Date: 9:17 AM Exam Name: XR CHEST 2V Admitt ing Diagno sis(es ): Create d and electr onical ly signed by: Juan Manuel Eaton ch, DO Signed Date: 9:50 AM (CT) Dictat ed by: Juan Manuel Eaton ch, DO DD: 9:50 AM (CT) DT: 9:50 AM (CT) Page 2 of 2 [id number] [facility] (Imaging) [address] [place], [address], 06/28/2022 13:01:32 11/17/19 21 DEXA, axial skele ton [facility] [address] [place] [address] [phone] Patikalli t Name: CINTHYA GAYTANAllyson [facility] Access ion #: [id number] Sex: F : 1960 0 Locati on: MO2 Attend ing Physic melvin: PRAMOD GAYTAN ng Physic melvin: PRAMOD GAYTAN Exam Date: 8:56 AM Exam Name: XR DEXA AXIAL/ HIP/PE LVIS/S PINE Admitt ing Diagno sis(es ): RADIOL OGY REPORT - FINAL EXAM: XR DEXA AXIAL/ HIP/PE LVIS/S PINE HISTOR Y: screen ing for osteo COMPAR JOHNNIE: None. TECHNI QUE: TECHNI QUE: Dual energy x-ray of absorp tion examin ation of the bilate ral hips and lumbar spine in AP projec tion was perfor med. FINDIN GS: Lumbar Spine (L1-L4 ): The mean bone minera l densit y is 0.997 g/cm2 hydrox yapati te, correl ating with a T-scor e of -1.7. Bilate ral hips: The mean bone minera l densit y is 0.926 g/cm2 calciu m hydrox yapati te, correl ating with a T-scor e of -0.6. Page 1 of 2 [facility] t Name: JOSE GAYTAN [facility] Access ion #: [id number] Sex: F : 1960 0 Exam Date: 8:56 AM Exam Name: XR DEXA AXIAL/ HIP/PE LVIS/S PINE Admitt ing Diagno sis(es ): IMPRES SEBASTIAN: 1. The patien t's lumbar spine T-scor e is consis tent with osteop enia. 2. The patien t's bilate ral hip T-scor e is consis tent with normal bone minera l densit y. Accord ing to the [employer]i zation , T-scor e values greate r than -1.0 are normal , values betwee n -1.0 and -2.5 are catego rized as osteop enia, T-scor e of -2.5 or more are catego rized as osteop orosis . Create d and electr onical ly signed by: Juan Manuel Eaton ch, DO Signed Date: 9:17 AM (CT) Dictat ed by: Juan Manuel Eaton ch, DO DD: 9:17 AM (CT) DT: 9:17 AM (CT) Page 2 of 2 [id number] [facility] (Imaging) [address], [place], [address], 06/28/2022 13:01:32 11/23/19 21 MAMMO , scree jefry, digit al, bilat eral [facility] [address], [place] [address] [phone] Patien t Name: JOSE GAYTAN [facility] Access ion #: [id number] Sex: F : 1960 0 Locati on: MO2 Attend ing Physic melvin: PRAMOD GAYTAN Orderi ng Physic melvin: PRAMOD GAYTAN Exam Date: 8:56 AM Exam Name: DIGITA L VINI BILAT SCREEN Admitt ing Diagno sis(es ): RADIOL OGY REPORT - FINAL EXAM: MG DIGITA L VINI BILAT SCREEN HISTOR Y: screen ing mammog odessa COMPAR JOHNNIE: Mammog salazar dated 2015 and 2015 TECHNI QUE: Bilate ral CC and MLO views of the breast s were perfor med. Digita l Mammog salazar images were obtain ed. CAD (compu ter assist ed detect ion) was utiliz ed. FINDIN GS: The breast s are almost entire ly fatty. Bilate ral silico ne implan ts are noted. No masses , asymme tries, suspic ious calcif icatio ns, or manny ectura l distor tion are seen. Page 1 of 2 [facility] Job t Name: JOSE GAYTAN [facility] Access ion #: [id number] Sex: F : 1960 0 Exam Date: 8:56 AM Exam Name: DIGITA L VINI BILAT SCREEN Admitt ing Diagno sis(es ): IMPRES SEBASTIAN: BIRADS 1: Assess ment comple te. Negati ve. Recomm end annual screen ing mammog salazar. Accord ing to the [employer], yearly mammog herve are recomm ended starti ng at age 40 and contin uing as long as the woman is in good health . Clinic al Breast Exam should be part of the period ic health exam-a bout every 3 years for women in their 20s and 30s and every year for women 40 and over. Breast self-e xam is an option for women in their 20s. Any breast change noted on the breast self-e xam she would be report ed prompt ly to the job [facility]. A negati ve mammog salazar report should not discou rage follow -up or biopsy of a clinic ally signif icant findin g and/or abnorm ality. Dense breast tissue may obscur e small neopla sms. This job clancy has been entere d into a mammog salazar remind er system with a target date for her next mammog odessa. Create d and electr onical ly signed by: Juan Manuel Eaton ch, DO Signed Date: 9:45 AM (CT) Dictat ed by: Juan Manuel Eaton ch, DO DD: 9:45 AM (CT) DT: 9:45 AM (CT) Page 2 of 2 MIGRATION. [facility] (Imaging) [address] [place], [address], 06/28/2022 13:01:32 12/03/19 21 12/02/2020 compl ete PFT* No observ ation record ed. MIGRATION. [facility] (Imaging) [address] [place] [address], [phone], 06/28/2022 13:01:32 01/29/20 21 01/28/2021 XR, foot No observ ation record ed. MIGRATION. [facility] (Imaging) [address] [place] [address], [phone], 06/28/2022 13:01:32 01/29/20 21 01/28/2021 XR, ankle No observ ation record ed. MIGRATION. [facility] (Imaging) [address], [place], [address], 06/28/2022 13:01:32 04/09/20 23 MAMMO , scree jefry, digit al, bilat eral [facility] [address] [place], [place] [id number] [phone] Patien t Name: JOSE GAYTAN [facility] Access ion #: [id number] Sex: F : 1960 0 Dictat ed By: Sammy Mcgee Attend ing Physic melvin: PRAMOD GAYTAN Orderi ng Physic melvin: PRAMOD GAYTAN Exam Date: 2022 08:51 AM Exam Name: MG DIGITA L VINI BILAT SCREEN Admitt ing Diagno sis(es ): CLINIC AL HISTOR Y: Screen ing COMPAR JOHNNIE STUDY: 021, 6 TECHNI QUE: Using a full field digita l 2D mammog salazar unit CC and MLO views of both breast s are perfor med. Implan t displa chandni views were also obtain ed. FINDIN GS: BREAST COMPOS ITION: There are scatte red areas of fibrog landul ar densit y in the bilate ral breast s. Bilate ral breast implan ts are presen t. Stable asymme try in the retail asset protection specialist ior outer left breast seen on CC view. No suspic ious masses , manny ectura l distor tion, asymme tries or suspic ious calcif icatio ns in both breast s. IMPRES SEBASTIAN: No eviden ce of malign tova. Recomm end annual mammog odessa. BIRADS : 2 - Benign Electr onical ly Signed by: Sammy Mcgee at 2022 10:59: 08 AM Page 1 [email or web address] [facility] (Imaging) [address] [place], [address], 04/19/2023 15:59:29 Result Notes None recorded. Problems Name Problem SNOMED Code Status Onset Date Resolution Date Notes Provider Name and Address Organization Details Recorded Time Disorder of shoulder 184436223 Active Not Available [facility] 3 06:17:07 Acute sinusitis 99327319 Active 2021 Not Available [facility] 3 06:17:07 Eruption 854428478 Completed Not Available [facility] 3 12:56:03 Bronchiti s 51645534 Completed Not Available [facility] 3 12:56:03 Vitamin D deficienc y 67196971 Active Not Available [facility] 3 06:17:07 Migraine 25612024 Active Not Available [facility] 3 06:17:07 Shoulder pain 27463376 Completed Not Available [facility] 3 12:56:04 Cough 40825493 Active 2021 Not Available [facility] 3 06:17:07 Upper respirato ry infection 52218754 Active 2021 Not Available [facility] 3 06:17:07 Hyperlipi demia 39461201 Active 2021 Not Available [facility] 3 06:17:07 COVID-19 867194212 Active 2021 Not Available [facility] 3 06:17:07 Contact dermatiti s caused by urushiol from [facility] poison tricia 306079219 Active 2022 Not Available [facility] 3 06:17:07 Fatigue 16386954 Active 2022 Not Available [facility] 3 06:17:07 Overweigh t 442191012 Active 2022 Not Available [facility] 3 06:17:07 Pain of right shoulder joint 02840832466 002480 Active 2022 FEDE [place], [place] - [facility] [place] [facility] 3 11:36:52 Problem Notes None recorded. Procedures Surgical History Date Name Laterality Status Provider Name and Address Organization Details Recorded Time excision of lipoma completed Not Available [facility] 06/28/2022 12:53:21 Cholecystectomy completed Not Available [facility] 06/28/2022 12:53:21 Imaging Results Imaging Date Name Status LastModified by Organiz ation Details LastModified Time 11/16/2020 XR, chest, 2 view completed [id number] [facility] (Imaging) [address] [place], [address], 06/28/2022 13:01:32 11/16/2020 DEXA, axial skeleton completed [id number] [facility] (Imaging) [address] [place], [address], 06/28/2022 13:01:32 11/22/2020 MAMMO, screening, digital, bilateral completed [id number] [facility] (Imaging) [address] [place], [address], 06/28/2022 13:01:32 12/02/2020 complete PFT* completed [id number] [facility] (Imaging) [address] [place] [address], [phone], 06/28/2022 13:01:32 01/28/2021 XR, foot completed [id number] [facility] (Imaging) [address] [place] [address], [phone], 06/28/2022 13:01:32 01/28/2021 XR, ankle completed [id number] [facility] (Imaging) [address] [place] [address], [phone], 06/28/2022 13:01:32 04/09/2023 MAMMO, screening, digital, bilateral completed [email or web address] [facility] (Imaging) [address] [place], [address], 04/19/2023 15:59:29 Procedure Notes None recorded. Medical Equipment None Reported. Allergies No known drug allergies Medications Name Sig Start Date Stop Date Status Note LastModified by Organization Details LastModified Time atorvastati n 20 mg tablet Take 1 tablet every day by oral route. active Not Available Not Available No t Available atorvastati n 10 mg tablet Take 1 tablet every day by oral route. 04/19 completed Not Available Not Available Not Available azithromyci n 250 mg tablet Take 1 dose pk by oral route as directed. 04/19 completed Not Available Not Available Not Available benzonatate 200 mg capsule Take 1 capsule 3 times a day by oral route. 11/07 completed Not Available Not Available Not Available sumatriptan 100 mg tablet TAKE 1 TABLET AT ONSET OF HEADACHE, MAY REPEAT IN 2 HOURS IF NEEDED. MAX OF 2 TABLETS IN 24 HOURS. 08/19 completed Not Available Not Available Not Available hydrocodone 5 mg-acetamin ophen 325 mg tablet 11/04 completed Not Available Not Available Not Available prednisone 20 mg tablet Take 2 tablets every day by oral route for 5 days. active Not Available Not Available No t Available topiramate 25 mg tablet TK 1 T PO D 11/07 completed Not Available Not Available Not Available phentermine 37.5 mg tablet TAKE 1 TABLET BY MOUTH EVERY DAY 11/04 completed Not Available Not Available Not Available Kenalog 40 mg/mL suspension for injection Take 2 mL by injection route. 11/04 completed Not Available Not Available Not Available prednisolon e acetate 1 % eye drops,suspe nsion 09/19 completed Not Available Not Available Not Available dexamethaso ne 1 mg tablet 10/06 completed Not Available Not Available Not Available dexamethaso ne 2 mg tablet One TID for 3 days then BID for 3 days then one daily for 3 days 10/06 completed Not Available Not Available Not Available simvastatin 20 mg tablet Take 1 tablet every day by oral route. 11/07 completed Not Available Not Available Not Available docusate sodium 100 mg capsule TAKE 1 CAPSULE BY MOUTH TWICE A DAY 11/07 completed Not Available Not Available Not Available methylpredn isolone 4 mg tablets in a dose pack Take 1 package by oral route as directed. 04/19 completed Not Available Not Available Not Available Vitamin D2 1,250 mcg (50,000 unit) capsule Take 1 capsule every week by oral route. 09/20 completed Not Available Not Available Not Available Crestor 10 mg tablet Take 1 tablet(s) every day by oral route. 11/04 completed Not Available Not Available Not Available ID NOW COVID-19 Test Kit TEST DIRECTED TODAY 09/19 completed Not Available Not Available Not Available Wegovy 0.25 mg/0.5 mL subcutaneou s pen injector inject 0.25 under the skin weekly for 4 weeks, then increase to 0.5 mg weekly. 04/19 completed Not Available Not Available Not Available Vitals Date Recorded Body mass index (BMI) Body height Heart rate Body temperature Body weight Systolic blood pressure Diastolic blood pressure Provider Name and Address Organization Details Last Updated DateTime 1 36.7 kg/m2 160.02 cm 90 /min 97.6 [degF] 87669.6 2 g 144 mm[Hg] 90 mm[Hg] Not Available [facility] 3 12:53:24 Date Recorded Body mass index (BMI) Body height Heart rate Body temperature Body weight Systolic blood pressure Diastolic blood pressure Provider Name and Address Organization Details Last Updated DateTime 2 36.5 kg/m2 160.02 cm 90 /min 96.2 [degF] 01402.0 3 g 136 mm[Hg] 80 mm[Hg] Not Available [facility] 3 12:53:24 Date Recorded Body height Body mass index (BMI) Body weight Body temperature Heart rate Oxygen saturation Oxygen saturation in Arterial blood by Pulse oximetry Systolic blood pressure Diastolic blood pressure Provider Name and Address Organization Details Last Updated DateTime 3 160.02 cm 37.6 kg/m2 56441.5 8 g 98.6 [degF] 94 /min 99 % 99 % 132 mm[Hg] 88 mm[Hg] Ivanna Morse RN [facility] [employer] [facility] 3 14:29:36 Date Recorded Body height Body mass index (BMI) Body weight Body temperature Heart rate Systolic blood pressure Diastolic blood pressure Provider Name and Address Organization Details Last Updated DateTime 3 160.02 cm 37.9 kg/m2 15470.7 7 g 97.2 [degF] 88 /min 122 mm[Hg] 80 mm[Hg] FEDE Ivy [facility] [employer] [facility] 3 10:57:52 Social History Question Answer Notes LastModified by Organizat ion Details LastModified Time Tobacco Smoking Status Never Smoker Not Available [facility] 06/28/2022 12:52:55 Do You Have An Advance Directive? No [id number] Information not available 06/28/2022 What Is Your Level Of Alcohol Consumption? Occasional MIGRATION.34139 46942 Information not available 06/28/2022 What Is Your Level Of Caffeine Consumption? Moderate MIGRATION.98929 87674 Information not available 06/28/2022 How Much Tobacco Do You Chew? None MIGRATION.90040 52654 Information not available 06/28/2022 In The 14 Days Before Symptom Onset, Have You Had Close Contact With A Laboratory-confi rmed COVID-19 While That Case Was Ill? No MIGRATION.47412 62156 Information not available 06/28/2022 In The 14 Days Before Symptom Onset, Have You Had Close Contact With A Person Who Is Under Investigation For COVID-19 While That Person Was Ill? No MIGRATION.66683 16791 Information not available 06/28/2022 Are You Currently Employed? No [email or web address] Information not available 09/19/2022 What Type Of Diet Are You Following? REGULAR MIGRATION.52080 42409 Information not available 06/28/2022 Which Illicit Or Recreational Drugs Have You Used? None MIGRATION.03585 52605 Information not available 06/28/2022 Do You Or Have You Ever Used E-cigarettes Or Vape? Never Used Electronic Cigarettes MIGRATION.35017 33937 Information not available 06/28/2022 What Is Your Occupation? Retired MIGRATION.29820 60450 Information not available 06/28/2022 Have There Been Any Changes To Your Family Or Social Situation? No [email or web address] Information not available 09/19/2022 Are There Any Guns Present In Your Home? No MIGRATION.26905 76832 Information not available 06/28/2022 Do You Use Insect Repellent Routinely? No [email or web address] Information not available 09/19/2022 Where Do You Live? SingleLevelHouse [email or web address] Information not available 09/19/2022 What Was The Date Of Your Most Recent Tobacco Screening? 04/19/2023 Information not available 04/19/2023 Have You Ever Been Counseled For Unhealthy Alcohol Use? No [email or web address] Information not available 09/19/2022 Do You Have Any Pets? Yes [email or web address] Information not available 09/19/2022 What Is Your Relationship Status? [email or web address] Information not available 09/19/2022 Do You Use Your Seat Belt Or Car Seat Routinely? Yes [email or web address] Information not available 09/19/2022 Do You Have Smoke And Carbon Monoxide Detectors In Your Home? Yes [email or web address] Information not available 09/19/2022 Are You Passively Exposed To Smoke? No [email or web address] Information not available 09/19/2022 Do You Or Have You Ever Used Smokeless Tobacco? Never Used Smokeless Tobacco MIGRATION.76134 98102 Information not available 06/28/2022 Are There Any Smokers In Your House? No [email or web address] Information not available 09/19/2022 How Much Tobacco Do You Smoke? No MIGRATION.79126 16248 Information not available 06/28/2022 Do You Feel Stressed (tense, Restless, Nervous, Or Anxious, Or Unable To Sleep At Night)? [id number] [email or web address] Information not available 09/19/2022 Do You Use Any Illicit Or Recreational Drugs? No [email or web address] Information not available 09/19/2022 Do You Use Sunscreen Routinely? Yes MIGRATION.83258 97652 Information not available 06/28/2022 How Many Years Have You Smoked Tobacco? 0 MIGRATION.18693 36985 Information not available 06/28/2022 Sex: Unknown Functional Status Question Answer Note LastModified by Organizat ion Details LastModified Time What is your exercise level? Occasional [id number] Information not available 06/28/2022 Mental Status None recorded. Family History Relationship Description Onset Age of this Age Resolved Age Notes LastModified by Organization Details LastModified Time Mother Renal failure syndrome MIGRATION.254 [id number] Not available 06/28/2022 12:53:21 Father Malignant neoplastic disease MIGRATION.941 [id number] Not available 06/28/2022 12:53:21 Brother Diabetes mellitus MIGRATION.436 [id number] Not available 06/28/2022 12:53:21 Brother Myocardial infarction MIGRATION.538 [id number] Not available 06/28/2022 12:53:21 Sister Congenital hemangioma MIGRATION.534 [id number] Not available 06/28/2022 12:53:21 Sister Diabetes mellitus MIGRATION.742 [id number] Not available 06/28/2022 12:53:21 Medical History Condition Response NERVE DISEASE N BLINDNESS N RHEUMATIC FEVER N KIDNEY STONES N BLADDER PROBLEMS N MRSA N OTHER # 1 N POLIO N LUNG DISEASE/DISORDER N COPD N RADIATION / CHEMOTHERAPY N Other # 2 N BLOOD DISEASES N EAR OR HEARING PROBLEMS N MUMPS N BOWEL PROBLEMS N DEPRESSION (INCLUDING POST ) N STROKE/TIA N ULCERS N BENIGN PROSTATIC HYPERPLASIA N MEASLES N MYOCARDIAL INFARCTION N OBESITY N GERD/NAUSEA N ANEURYSM N URINARY/BLADDER/KIDNEY PROBLEMS N CORONARY ARTERY DISEASE (CAD) N ADDICTION CONCERNS N ENDOMETRIOSIS N Impotence N USE OF BLOOD THINNERS N SKIN PROBLEMS N GASTROINTESTINAL DISORDER N PERIPHERAL VASCULAR DISEASE N MUSCLE,JOINT OR BONE PROBLEMS N GASTROINTESTINAL BLEEDING N BLOOD CLOTS N ASTHMA N CATARACTS N ERECTILE DYSFUNCTION N VARICOSITIES N GI PROBLEMS N Low Testosterone N INFERTILITY N AIDS/HIV N CHEMOTHERAPY / RADIATION N LIVER DISEASE N MALE HYPOGONADISM N HYPERTENSION N Deficiency Y TOURETTE'S N ANXIETY DISORDER N BLOOD TRANSFUSION N ANEMIA/BLOOD DISORDER N CHRONIC EAR INFECTIONS N BRONCHITIS N TUBERCULOSIS N GLAUCOMA N FOOT PROBLEM N DIVERTICULITIS N SLEEP APNEA N CHICKENPOX N INFECTIOUS DISEASE N HEART ARRHYTHMIA N PROSTATE N INSOMNIA N HIGH CHOLESTEROL / HYPERLIPIDEMIA Y HYPERTHYROIDISM N EYE PROBLEMS N EDEMA N CHRONIC PAIN SYNDROME N HYPOTHYROIDISM N CAROTID BLOCKAGE N CONSTIPATION N BACK / NECK PROBLEMS N HAVE YOU BEEN HOSPITALIZED OR SEEN IN [facility] ER IN THE PAST YEAR ? N ATHEROSCLEROSIS N BREAST PROBLEMS N DIALYSIS N ECZEMA N OSTEOPOROSIS N ARTHRITIS N APPENDICITIS N DIABETES, TYPE N BAD TEETH N ENT N HEARTBURN / REFLUX N AUTISM SPECTRUM DISORDER (ASD) N HEPATITIS / LIVER DISEASE N GOUT N SLEEP DISORDER N ALZHEIMER'S DISEASE N Brain Problems N HERPES N DEMENTIA N HEADACHES/MIGRAINES Y SEIZURES/EPILEPSY N VASCULAR DISEASE N PACEMAKER N Blood Disorder N DIZZINESS N HEART DISEASE/HEART PROBLEMS N KIDNEY DISEASE N MULTIPLE SCLEROSIS N CARDIAC ARRHYTHMIA N CANCER: SPECIFY N ATRIAL FIBRILLATION N Gall Stones N PULMONARY EMBOLISM N AUTOIMMUNE DISEASE N Gynecological HistoryNo gynecological history recorded. Obstetrics History GPAL:G 0 P 0 0 0 0 Immunizations Vaccine Type Date Status Note Provider Nam e and Address Organization Details Recorded Time Tdap 11/04/2020 completed Not Available [facility] 04/14/2023 06:17:07 zoster live 04/10/2014 completed Not Available [facility] 04/14/2023 06:17:07 Past Encounters Encounter ID Performer Location Encounter Start Date Encounter Closed Date Diagnosis/Indication Diagnosis SNOMED-CT Code Diagnosis ICD10 Code Diagnosis Note [id number] [facility] Internal Med Shawn antunez [address] [place] [address] 11/04/2020 00:00:00 11/04/2020 23:23:09 [id number] [facility] Internal Med Shawn johnson [address] [facility] [place] [address] 10/06/2021 00:00:00 10/31/2021 11:25:40 [id number] Isaias Gaytan MD [facility] [address] [place] [address] [place] [address] 09/19/2022 14:20:43 09/19/2022 15:11:52 Hyperlipidemia 95942190 E78.5 Fatigue 92111382 R53.83 Overweight 365889243 E66 .3 Screening mammography 24 085493 Z12.31 [id number] Isaias Gaytan MD [facility] Internal [facility] Fernando tulio [address] [place] [address] [place] [address] 04/19/2023 10:49:19 04/19/2023 11:39:47 Hyperlipidemia 73842270 E78.5 Pain of ri ght shoulder joint 9496787216 4918389 M25.511 Health Concerns Section Related Observation LastModified by Organization Detai ls LastModified Time None Recorded Concern Status LastModified by Organization Details LastModified Time None Recorded Advance Directives Directive N: Payers Encounter Date Sequence Insurance Name Policy Number Policy Rivas Covered Member ID Rivas Member ID Guarantor Name 09/19/2022 1 [place] [id number] Karlie Gaytan [id number] Karlie Gaytan 04/19/2023 1 [place] [id number] Karlie Gaytan [id number] Karlie Gaytan Notes Date Note Type Note Provider Name and Address Organization Details Recorded Time 3 text/html some nonspecific fatiguetrouble losing weightpoison tricia settling down with steroiddyslipidemia needs check Isaias Gaytan MD [address] [facility] [address], [place], [address], [facility] 09/19/2022 22:52:27 12/21/202 3 text/html Dyslipidemia Lipitor she bad pain in her right shoulder since she suffered a fall couple months ago no numbness or tingling just consistent pain Isaias Gaytan MD [address] [place] [address], [facility] [address], [place], [address], [place] [facility] [place] [facility] 04/19/2023 22:03:02 OBGyn Episode No OBEpisode recorded.
--- OUTSIDE RECORDS SUMMARY | 2024-07-24 10:41 | XMS_ITS | Continuity of Care Document ---
Author Organization [employer] Address [address] [place] [address] Phone Care Team Providers Care Ambulatory Services Representative Name Role Phone Ania Hoover Unavailable Unavailable Allergies, Adverse Reactions, Alerts Substance Reaction Status Criticality METHOHEXITAL SODIUM asthma exacerbation Active N o Information Medications Medication Instructions Dosage Effective Dates (start - stop) Status Comments X . Prevagen Once a day - Acti ve biotin 2,500 mcg capsule - Active fluticasone 100 mcg-salmeterol 50 mcg/dose blistr powdr for inhalation inhale 1 puff by inhalation route 2 times every day in the morning and evening approximately 12 hours apart 1.00 puff - Active albuterol sulfate HFA 90 mcg/actuation aerosol inhaler inhale 2 puff by inhalation route every 4 - 6 hours as needed - Active Procedures Procedure Date Immuniz Admin; Single Or combo Vaccine M TDAP Adacel VACCINE >7 IM 10 Dose Vial S .Pasteur Immuniz Admin; 2/> Sing/comb V 20 PNEUMOCOCCAL VACCINE Init Preventive NEW 40 - 64 Yrs Old PNEUMOCOCCAL VACCINE Admin Pneumo Vaccine ONLY TDAP Adacel VACCINE >7 IM 10 Dose Vial S .Pasteur Immuniz Admin; 2/> Sing/comb V 20 No Charge Venipuncture/finger/heel Lipid Panel Basic Metabolic Panel Offic/outpt E&m Estab Mod-hi 2 13 Offic/outpt E&m Estab Mod-hi 2 13 Endomet Bx W/wo Endocerv Bx (s 11 Offic/outpt E&m Estab Mod-hi 2 11 Cervical/vaginal Cytopathology Manual Se Preventive Estab Pt; 40-64 Offic/outpt E&m Estab Low-mod 1 Venipuncture/finger/heel General Health Panel Lipid Panel Offic/outpt E&m Estab Low-mod 1 Offic/outpt E&m Estab Mod-hi 2 11 Smear Prim W/intrpt; Wet Mnt W 10 Tiss Exam Fungi Ua Dip Stick/tablet; Auto W/mi 10 Urin Pg Test Visual Color Comp 10 Offic/outpt E&m Estab Mod-hi 2 10 Preventive Estab Pt; 40-64 Flu Vir Vacc-split 3 Yr & > Im 09 Flu Vaccine ONLY Routine Venipunct/finger/heel [address]; Hg/pltlt Ct Auto/compl 09 Comp Metabolic Panel Lipid Panel Offic/outpt E&m Estab Mod-hi 2 09 Offic Cons New/estab Mod 40 Mi 08 Prothrombin Time Routine Venipunct/finger/heel [address] Hg/pltlt Ct Auto/compl 08 Comp Metabolic Panel Immunoassay Tumor Antig Ea Offic/outpt E&m Estab Low-mod [address]; Hg/pltlt Ct Auto/compl 08 Basic Metabolic Panel Prothrombin Time Handl/convey Specmn-offic To L 08 Offic Cons New/estab Low 30 Mi 08 Ecg-routine 12 Lead; W/intrpt 8 Offic/outpt E&m Estab Mod-hi 2 08 Handl/convey Specmn-offic To L 08 Comp Metabolic Panel Lipid Panel Thyroid Stim Hormone Init Preven Meds E&m New Pt; 4 07 Advance Directives Directive Yes / No Effective Date File Name No Information Encounters Encounter Description Practice Location Reason(s) For Visit Diagnoses Date Provider [employer], [address], [place], [place], [id number], tel:[phone] [facility] No Information 1 Luppino Ania. [address], [place], [place]. tel:[phone] Init Preventive NEW 40 - 64 Yrs Old [facility], [address], [place], [place], [id number], [place] tel:[phone] [facility] establish pt (chief complaint)asthm a (chief complaint) Mild intermittent asthma, uncomplicatedEncount er for adult annual physical exam w/ abnormal findingGoiter 0 Luppino Ania. [address] [place], [place], [place]. tel:[phone] [employer], [address], [place], [place], [id number], [place] tel:[phone] [facility] No Information 3-201 4 Rome Carrillo. [address], [place], [place]. tel:[phone] [employer], [address], [place], [place] tel:[phone] [facility] No Information 2-201 4 Deion Guaman. [address], [place], [id number], [place]. tel:[phone] Offic/outpt E&m Estab Mod-hi 2 [employer], [address], [place], [place], [id number], [place] tel:[phone] [facility] Follow Up of asthma (chief complaint)Follo w Up of hyperlipidemia (chief complaint)Follo w Up of elevated BP (chief complaint)Follo w Up of anxiety (chief complaint) ELEVATED BPMixed Hyperlipidemia 3 Gongloff Agnes. [address] [place], [place], [id number], [place]. tel:[phone] Offic/outpt E&m Estab Mod-hi 2 [employer], [address], [place], [place], [address], [place] tel:[phone] [facility] medication refill (chief complaint)refer ral to a surgeon to remove mole on face (chief complaint)eye lashes falling out (chief complaint) ELEVATED BPCapillary Nevus, Non-neoplasticMixed HyperlipidemiaMalign ant Neoplasm, Breast 3 Kasandra Liana. [address] [place], [place], [id number], [place]. tel:[phone] [employer], [address], [place], [place], [id number], [place] tel:[phone] [facility] endometrial biopsy (chief complaint) Postmenopausal Bleeding 1 Deion Mendozar. [address] [place], [place], [id number], [place]. tel:[phone] Offic/outpt E&m Estab Mod-hi 2 [employer], [address], [place], [place], [id number], [place] tel:[phone] [place] [facility] anxiety (chief complaint)vagin al bleeding (chief complaint) Postmenopausal BleedingBreast Cancer, Female, Unspecified 1 Deion Samer. [address], [place], [id number], [place]. tel:[phone] [employer], [address], [place], [place], [id number], tel:[phone] [facility] anxiety (chief complaint) Postmenopausal Bleeding 1 Deion Guaman. [address], [place], [address] [place] [address], [place]. tel:[phone] [facility] Estab Pt; 40-64 [facility], [address], [place], [place], [id number], tel:[phone] [employer] [facility] PAP test (chief complaint) WELL WOMANPostmenopausal BleedingBreast Cancer, Female, Unspecified Sep-2 0 1 Damion Castillo. [address] [place], [place], [id number], [place]. tel:[phone] [employer], [address], [place], [place], [id number], tel:[phone] [facility] No Information 1 Deion Mendozar. [address] [place], [place], [id number], [place]. tel:[phone] Offic/outpt E&m Estab Low-mod [employer], [address], [place], [place], [id number], tel:[phone] [employer] [facility] anxiety (chief complaint) No Information 1 Deion Key [address], [place], [address], . tel:[phone] Offic/outpt E&m Estab Mod-hi 2 [employer], [address], [place], [place], [address], [place] tel:[phone] [facility] depression (chief complaint)asthm a (chief complaint) No Information 1 Deion Key [address] [place], [place], [id number], [place]. tel:[phone] [employer], [address], [place], [place], [address], [place] tel:[phone] [facility] No Information 0 Gongloff Agnes. [address], [place], [id number], [place]. tel:[phone] Offic/outpt E&m Estab Mod-hi 2 [employer], [address], [place], [place], [id number], [place] tel:[phone] [place] [facility] vaginal discharge (chief complaint) No Information 0 Gongloff Agnes. [address], [place], [id number], [place]. tel:[phone] Preventive Estab Pt; 40-64 [employer], [address], [place], [place], [id number], [place] tel:[phone] [place] [facility] physical exam (chief complaint)hyper lipidemia (chief complaint)labs (chief complaint)asthm a (chief complaint) Hyperlipidemia, mixedRoutine Gen. Med. Exam. at [facility]. 9 Deion Mendozar. [address], [place], [id number], [place]. tel:[phone] [employer], [address], [place], [place], [id number], [place] tel:[phone] [email or web address] No Information 9 Deion Samer. [address], [place], [address], [place]. tel:[phone] Offic/outpt E&m Estab Mod-hi 2 [employer], [address], [place], [place], [id number], [place] tel:[phone] [employer] [facility] asthma (chief complaint)anxie ty (chief complaint)hyper lipidemia (chief complaint) Hyperlipidemia, mixed Sep- 4200 9 Deion Samer. [address], [place], [id number], [place]. tel:[phone] Offic Cons New/estab Mod 40 Mi [facility], [address], [place], [place], [id number], [place] tel:[phone] [email or web address] pre-operative evaluation (chief complaint) No Information 0-200 8 Damion Anna. [address] [place], [place], [id number], [place]. tel:[phone] [employer], [address], [id number], tel:[phone] [facility] No Information Dec-0 8-200 8 Hawari Samer. [address] [place], [place], [address] [place] [address], . tel:[phone] Offic/outpt E&m Estab Low-mod [facility], [address], [place], [place], [id number], tel:[phone] [facility] sore throat (chief complaint) No Information 2-200 8 Gongloff Agnes. [address] [place], [place] [address] [place], [address] [place] [address], . tel:[phone] [employer], [address], [place], [place], [id number], tel:[phone] [facility] No Information 2 7-200 8 Gongloff Agnes. [address] [place], [place] [address], [place], [id number], . tel:[phone] Offic Cons New/estab Low 30 Mi [facility], [address], [place], [place], [id number], tel:[phone] [facility] No Information 7200 8 Gongloff Agnes. [address] [place], [place] [address], [place], [address], [place]. tel:[phone] Offic/outpt E&m Estab Mod-hi 2 [employer], [address] [place], [place], [id number], tel:[phone] [facility] asthma (chief complaint)? regarding advair med (chief complaint)anxie ty (chief complaint) No Information Deandre-0 3-200 8 Hawari Samer. [address] [place], [place], [id number], [place]. tel:[phone] [employer], [address], [place], [place], [address], tel:[phone] [facility] No Information 8 Deion Samer. [address] [place], [place], [id number], . tel:[phone] Init Preven Meds E&m New Pt; 4 [facility], [address], [place], [place], [id number], tel:[phone] [facility] est new pt (chief complaint) No Information 7 Deion Samer. [address] [place], [place], [address], [place]. tel:[phone] Family History Family Member Type Diagnosis Age At Onset Paternal grandmother Problem (finding) anemia (Cause O f ) Mother Problem (finding) malignant neop lasm of urinary bladder Paternal grandfather Problem (finding) Heart (Cause Of ) Maternal grandmother Problem (finding) CHF (Cause Of D eath) Maternal grandfather Problem (finding) Father Problem (finding) coronary arterioscleros is 40 Immunizations Vaccine Date Status Comments Pneumovax 23 administered Source: New Imm unization Record TDaP administered Source: New Imm unization Record Flu (split) (3 yrs or older) administered Note: [id number] ; Source: New Immunization Record Payers Payer name Insurance type Covered democrat ID Authoriza tion(s) .[facility] [id number] [facility] [id number] [facility] [id number] Social History Type Description Quantity Date Captured Comments Sex Female Smoking Status No Information Chief Complaint And Reason For Visit No Information Plan Of Treatment Date Type Action Status Goal Influenza Vaccine. Due on due Goal H&P. Due on due Goal Breast exam. Due on 020 due Goal Colonoscopy. Due on 021 due Goal Shingrix (1st). Due on due Goal Shingrix (2nd). Due on due Goal Tdap due Goal Lipid Panel. Due on 015 due Goal FOBT. Due on due Goal PAP. Due on due Goal Depression screening. Due on due Goal Pap/HPV testing. Due on due Goal Pneumococcal vaccine due Goal Breast exam. Due on due Goal Influenza Vaccine. Due on Ju due Goal Mammogram. Due on 3 due Goal H&P. Due on due Goal Lipid Panel. 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 Due on due Goal PAP. Due on due Goal AIR TWIST OPERATOR exam. Due on due Goal FOBT. Due on due Goal PAP. Due on due Goal Breast exam. Due on 011 due Goal Influenza Vaccine. Due on due Goal Mammogram. Due on 3 due Goal H&P. Due on due Goal TD Vaccine. Due on 04 due Goal Lipid Panel. Due on 011 due Goal Colonoscopy. Due on due History Of Present Illness Encounter Date Complaint History Of Prese nt Illness establish pt Pt presents to [facility] not been seen in 6 years.Pt is moving and encountered a lot of dust and needed to use her rescue inhaler daily for the last week. Previously given Rx for Advair and would like that refilled for temporary use.No acute issues.PMHx- Asthma, Breast cancerPSHx- Left breast partial mastectomy 1989, left breast augmentation /reconstruction 2007Tdap - dueShingrix - duePPV-23 - dueLMP- 2017last pap - 12/2010 ; abnormals -none , Normal mammogram - pt refusesPositive BSEcolonoscopy- 01/31/2011Last eye exam - 01/2019Last dental exam- 06/2018Exercise- fairly active her day. Lives in 3 story house and [place] acres. Very active. Uses elliptical dailyDiet- has cut back on sweetssmoking hx- former smoker for a few years in HS. 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 Additional information: Previously treated with Advair but has been out for > 5 years and rare use of Albuterol HFA previously but in the last week she has used it daily. Follow Up of asthma (comments) S H pt who walked in Apr to be seen and has walked in again today to be seen. Wants to see a female provider. Follow Up of elevated BP BP at h ome 130/80. Denies cp, sob, dizziness, daugherty, weakness, edema, palpitation, change in vision. Follow Up of anxiety The patient does not present with anxious/fearful thoughts, depressed mood, difficulty concentrating, difficulty falling asleep, difficulty staying asleep, diminished interest or pleasure, loss of appetite, poor judgment, racing thoughts, restlessness or thoughts of or suicide. The patient denies any nausea. Additional information: stopped xanax and started citalopram 20mg per Dr. Martinez. Mood is stable. No s/e. Happ with dose and does not want to increase.. Follow Up of hyperlipidemia Reas ons for screening include alcohol use. Reasons for screening do not include tobacco use. Pertinent negatives include nausea. Additional information: Eating healthy and has lost 20 lbs per pt in past year. No exercise program. Not taking meds. Follow Up of asthma The initial visit date was 04/18/2013. Pertinent negatives include dry cough, dyspnea at rest, dyspnea with intense exercise, dyspnea with moderate exercise, hoarseness, productive cough and wheezing. Additional information: using advair, refill needed; no s/e to med. Sx well controlled. Not using albuterol inhaler at all. Nonsmoker. Instructions Date Instruction Additional Infor tyler Refer for thyroid U/S Related to Goiter Tdap and PPV-23 toda y.Encouraged obtaining Shingrix at her pharmacyPt refuses mammogram in spite of hx breast CAColonoscopy UTD; due in 2020Fasting labs within 1 week; will notify of results Related to Encounter for adult annual physical exam w/ abnormal finding Renew Advair for use during allergy seasonrenew Albuterol HFA Related to Mild intermittent asthma, uncomplicated Assessments Type Assessment Date No Information
== END 2024-07-24 09:46 | disposition home or self-care (01) ==
LOC: ANHLAB 09:49
PROVIDERS: PCP Physician Assistant; Visit Provider Nurse Anesthetist, Certified Registered
DX: Z01.818 Encounter for other preprocedural examination (principal); I10 Essential (primary) hypertension
CPT/HCPCS: 36415; 80048; 93005

== ENCOUNTER 2024-09-17 10:13 | Outpatient (CLI) | payer BC, SELFPAY ==
--- NOTE | ~2024-09-17 | MM_ITS ---
EXAMINATION: MM scrn chin implant BI w ale HISTORY: Screening mammogram TECHNIQUE: Craniocaudal and mediolateral oblique 3-D tomosynthesis images with implant displacement a nd synthetic 2-D images were generated. Craniocaudal and mediolateral oblique views of the breasts wi thout implant displacement were obtained using full field digital mammography. CAD analysis was submi tted and interpreted. COMPARISON: Comparison to multiple prior studies sequentially, with oldest reviewed study dated 10/11. BREAST PARENCHYMAL COMPOSITION: Not dense: There are scattered areas of fibroglandular density. FINDINGS: There is no evidence of suspicious mass, calcification, or architectural distortion to sugg est malignancy in either breast. There has been no suspicious interval change. IMPRESSION: 1. No mammographic evidence of malignancy. 2. Recommend routine screening mammography in one year. BI-RADS Category 1: Negative Reviewed, dictated and finalized at location B.
--- OUTSIDE RECORDS SUMMARY | 2024-09-17 10:47 | XMS_ITS | Data Portability ---
Author Organization [place] [facility], Main Office Address [address] [place] [address] Assessment Encounter Date Assessment Date Assessment LastModified by Organization Details LastModified Time 09/19/2022 09/19/2022 Lipitor low-fat diet blood work will try to get GLP 1 started and covered see me back in 6 weeks if starts injection 6 months if not. 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 Lab lipid panel, serum 2022 023 [facility] (Lab), [address] [place] [address], [address], 3 13:31:00 CMP, serum or plasma 2022 023 [facility] (Lab), [address] [place] [address], [id number], 3 13:31:05 CBC w/ auto diff 2022 023 [facility] (Lab), [address] [place] [address], [address], 3 13:08:32 TSH + free T4, serum 2022 023 [facility] (Lab), [address] [place] [address], [address], 3 10:13:53 T3, free, serum or plasma 2022 023 [facility] ([facility]), [address], [place], [address], 3 13:43:29 Referral orthopedic surgeon referral 2022 023 Tulio Sin MD, [id number], [place], [address], 4 08:46:29 Procedures None recorded. Surgeries None recorded. Imaging MAMMO, screening, digital, bilateral 2022 023 [facility] Not available 3 12:00:28 Medication Orders Lipitor 20 mg tablet 2022 023 [email or web address] [facility], [address] [place] [address] , [place], [place], [id number], 3 22:02:08 Wegovy 0.25 mg/0.5 mL subcutaneou s pen injector 2022 023 [email or web address] [facility], [address] [place] [address] , [place], [place], [id number], 3 10:55:00 Lipitor 20 mg tablet 2022 023 [facility], [address] [place] [address] , [place], [id number], 3 15:47:49 Patient TargetsNo targets recorded. Patient [...] WILL NOT BE REPOR DANNIE. Not Available [facility] (Lab) [address] [place], [address], 11/16/2020 19:37:57 11/17/19 21 11/16/2020 LIPID PANEL cholesterol 229 mg/dL 140-19 9 high NIH LEATHA NSUS RECOM MENDA TION FOR AMINAH STERO L: ADULT CHILD LOW RISK: <200 <170 BORDE RLINE : <200- 239 ----- HIGH RISK: >240 >200 Not Available [facility] (Lab) [address] [place], [address], 11/16/2020 19:37:57 11/17/19 21 11/16/2020 LIPID PANEL triglyceride s 85 mg/dL 0-150 NIH LEATHA NSUS REPOR T RECOM MENDA TION FOR TRIGL YCERI LETICIA: ADULT CHILD LOW RISK: <150 ----- BODER LINE: 150-1 99 ----- HIGH RISK: >200 ----- Not Available [facility] (Lab) [address] [place], [address], 11/16/2020 19:37:57 11/17/19 21 11/16/2020 LIPID PANEL HDL cholesterol 81 mg/dL 40- Not Available [facility] (Lab) [address] [place], [address], 11/16/2020 19:37:57 11/17/19 21 11/16/2020 CBC/C OMPLE TE BLD COUNT W/DIF F red cell distribution width 13.2 % 11.8-1 5.5 Not Available [facility] (Lab) [address] [place], [address], 11/16/2020 13:16:31 11/17/19 21 11/16/2020 CBC/C OMPLE TE BLD COUNT W/DIF F white blood cells 8.0 x10'3 /uL 4.2-10 .8 Not Available [facility] (Lab) [address] [place], [address], 11/16/2020 13:16:31 11/17/19 21 11/16/2020 CBC/C OMPLE TE BLD COUNT W/DIF F red blood cells 4.56 x10'6 /uL 3.80-5 .20 Not Available [facility] (Lab) [address] [place], [address], 11/16/2020 13:16:31 11/17/19 21 11/16/2020 CBC/C OMPLE TE BLD COUNT W/DIF F hemoglobin 13.6 g/dL 12.0-1 5.6 Not Available [facility] (Lab) [address] [place], [address], 11/16/2020 13:16:31 11/17/19 21 11/16/2020 CBC/C OMPLE TE BLD COUNT W/DIF F hematocrit 42.8 % 35.7-4 5.7 Not Available [facility] (Lab) [address] [place], [address], 11/16/2020 13:16:31 11/17/19 21 11/16/2020 CBC/C OMPLE TE BLD COUNT W/DIF F mean red cell volume 93.9 fL 82.0-9 9.0 Not Available [facility] (Lab) [address] [place], [address], 11/16/2020 13:16:31 11/17/19 21 11/16/2020 CBC/C OMPLE TE BLD COUNT W/DIF F mean red cell hemoglobin 29.8 pg 27.0-3 3.0 Not Available [facility] (Lab) [address] [place], [address], 11/16/2020 13:16:31 11/17/19 21 11/16/2020 CBC/C OMPLE TE BLD COUNT W/DIF F mean RBC HGB concentratio n 31.8 g/dL 31.0-3 6.0 Not Available [facility] (Lab) [address] [place], [address], 11/16/2020 13:16:31 11/17/19 21 11/16/2020 CBC/C OMPLE TE BLD COUNT W/DIF F platelets 413 x10'3 /uL 150-40 0 high Not Available [facility] (Lab) [address] [place], [address], 11/16/2020 13:16:31 11/17/19 21 11/16/2020 CBC/C OMPLE TE BLD COUNT W/DIF F mean platelet volume 9.3 fL 9.0-12 .4 Not Available [facility] (Lab) [address] [place], [address], 11/16/2020 13:16:31 11/17/19 21 11/16/2020 CBC/C OMPLE TE BLD COUNT W/DIF F neutrophils 67.5 % 39.0-7 2.0 Not Available [facility] (Lab) [address] [place], [address], 11/16/2020 13:16:31 11/17/19 21 11/16/2020 CBC/C OMPLE TE BLD COUNT W/DIF F lymphocytes 18.4 % 16.0-4 7.0 Not Available [facility] (Lab) [address] [place], [address], 11/16/2020 13:16:31 11/17/19 21 11/16/2020 CBC/C OMPLE TE BLD COUNT W/DIF F monocytes 10.8 % 5.0-12 .0 Not Available [facility] (Lab) [address] [place], [address], 11/16/2020 13:16:31 11/17/19 21 11/16/2020 CBC/C OMPLE TE BLD COUNT W/DIF F eosinophils 2.0 % 1.0-7. 0 Not Available [facility] (Lab) [address] [place], [address], 11/16/2020 13:16:31 11/17/19 21 11/16/2020 CBC/C OMPLE TE BLD COUNT W/DIF F basophils 0.8 % 0.0-2. 0 Not Available [facility] (Lab) [address] [place], [address], 11/16/2020 13:16:31 11/17/19 21 11/16/2020 CBC/C OMPLE TE BLD COUNT W/DIF F immature granulocytes 0.5 % 0.00-0 .50 Not Available [facility] (Lab) [address] [place], [address], 11/16/2020 13:16:31 11/17/19 21 11/16/2020 CBC/C OMPLE TE BLD COUNT W/DIF F neutrophils, absolute count 5.41 x10'3 /uL 1.5-8. 0 Not Available [facility] (Lab) [address] [place], [address], 11/16/2020 13:16:31 11/17/19 21 11/16/2020 CBC/C OMPLE TE BLD COUNT W/DIF F lymphocytes, absolute count 1.47 x10'3 /uL 1.07-3 .43 Not Available [facility] (Lab) [address] [place], [address], 11/16/2020 13:16:31 11/17/19 21 11/16/2020 CBC/C OMPLE TE BLD COUNT W/DIF F monocytes, absolute count 0.86 x10'3 /uL 0.29-0 .99 Not Available [facility] (Lab) [address] [place], [address], 11/16/2020 13:16:31 11/17/19 21 11/16/2020 CBC/C OMPLE TE BLD COUNT W/DIF F eosinophils, absolute count 0.16 x10'3 /uL 0.02-0 .53 Not Available [facility] (Lab) [address] [place], [address], 11/16/2020 13:16:31 11/17/19 21 11/16/2020 CBC/C OMPLE TE BLD COUNT W/DIF F basophils, absolute count 0.06 x10'3 /uL 0.01-0 .08 Not Available [facility] (Lab) [address] [place], [address], 11/16/2020 13:16:31 11/17/19 21 11/16/2020 CBC/C OMPLE TE BLD COUNT W/DIF F immature granulocytes ,absolute 0.04 x10'3 /uL 0.00-0 .05 Not Available [facility] (Lab) [address] [place], [address], 11/16/2020 13:16:31 11/17/19 21 11/16/2020 CBC/C OMPLE TE BLD COUNT W/DIF F nucleated red blood cells 0.0 % -0 Not Available [facility] (Lab) [address] [place], [address], 11/16/2020 13:16:31 11/17/19 21 11/16/2020 CBC/C OMPLE TE BLD COUNT W/DIF F NRBC# 0.00 x10'3 /uL Not Available [facility] (Lab) [address] [place], [address], 11/16/2020 13:16:31 11/17/19 21 11/16/2020 COMPR EHENS PREET METAB OLIC PANEL carbon dioxide 28 mmol/ L 22-30 Not Available [facility] (Lab) [address] [place], [address], 11/16/2020 19:38:18 11/17/19 21 11/16/2020 COMPR EHENS PREET METAB OLIC PANEL sodium 140 mmol/ L 137-14 5 Not Available [facility] (Lab) [address] [place], [address], 11/16/2020 19:38:18 11/17/19 21 11/16/2020 COMPR EHENS PREET METAB OLIC PANEL potassium 4.4 mmol/ L 3.5-5. 1 Not Available [facility] (Lab) [address] [place], [address], 11/16/2020 19:38:18 11/17/19 21 11/16/2020 COMPR EHENS PREET METAB OLIC PANEL chloride 103 mmol/ L 98-107 Not Available [facility] (Lab) [address] [place], [address], 11/16/2020 19:38:18 11/17/19 21 11/16/2020 COMPR EHENS PREET METAB OLIC PANEL agap 13.4 mmol/ L 14-22 low Not Available [facility] (Lab) [address] [place], [address], 11/16/2020 19:38:18 11/17/19 21 11/16/2020 COMPR EHENS PREET METAB OLIC PANEL glucose 90 mg/dL 70-99 Not Available [facility] (Lab) [address] [place], [address], 11/16/2020 19:38:18 11/17/19 21 11/16/2020 COMPR EHENS PREET METAB OLIC PANEL BUN 17 mg/dL 8-19 Not Available [facility] (Lab) [address] [place], [address], 11/16/2020 19:38:18 11/17/19 21 11/16/2020 COMPR EHENS PREET METAB OLIC PANEL creatinine 0.63 mg/dL 0.66-1 .25 low Not Available [facility] (Lab) [address] [place], [address], 11/16/2020 19:38:18 11/17/19 21 11/16/2020 COMPR EHENS PREET METAB OLIC PANEL GFR >60 Refer ence Range : [place] ge GFR Healt hy Adult : >60 [...] lator can be locat ed on the [facility] websi te: [email or web address] :[email or web address] cynthia/pr ofess ional s/kdo qi/gf r_cal culat or Not Available [facility] (Lab) [address] [place], [address], 11/16/2020 19:38:18 11/17/19 21 11/16/2020 COMPR EHENS PREET METAB OLIC PANEL alkaline phosphatase 88 U/L 38-126 Not Available [facility] (Lab) [address] [place], [address], 11/16/2020 19:38:18 11/17/19 21 11/16/2020 COMPR EHENS PREET METAB OLIC PANEL alanine aminotransfe rase 19 U/L 0-35 Not Available [facility] (Lab) [address] [place], [address], 11/16/2020 19:38:18 11/17/19 21 11/16/2020 COMPR EHENS PREET METAB OLIC PANEL aspartate aminotransfe rase 25 U/L 15-37 Not Available [facility] (Lab) [address] [place], [address], 11/16/2020 19:38:18 11/17/19 21 11/16/2020 COMPR EHENS PREET METAB OLIC PANEL bilirubin, total 0.60 mg/dL 0.20-1 .30 Not Available [facility] (Lab) [address] [place], [address], 11/16/2020 19:38:18 11/17/19 21 11/16/2020 COMPR EHENS PREET METAB OLIC PANEL calcium 9.5 mg/dL 8.4-10 .2 Not Available [facility] (Lab) [address] [place], [address], 11/16/2020 19:38:18 11/17/19 21 11/16/2020 COMPR EHENS PREET METAB OLIC PANEL total protein 7.7 g/dL 6.3-8. 2 Not Available [facility] (Lab) [address] [place], [address], 11/16/2020 19:38:18 11/17/19 21 11/16/2020 COMPR EHENS PREET METAB OLIC PANEL albumin 4.8 g/dL 3.4-5. 0 Not Available [facility] (Lab) [address] [place], [address], 11/16/2020 19:38:18 11/17/19 21 11/16/2020 COMPR EHENS PREET METAB OLIC PANEL globulin 2.9 g/dL 2.6-4. 2 Not Available [facility] (Lab) [address] [facility] [place], [address], 11/16/2020 19:38:18 11/17/19 21 11/16/2020 COMPR EHENS PREET METAB OLIC PANEL A/G ratio 1.7 ratio 1.0-2. 0 Not Available [facility] (Lab) [address] [place], [address], 11/16/2020 19:38:18 10/28/19 22 10/27/2021 COMPR EHENS PREET METAB OLIC PANEL carbon dioxide 27 mmol/ L 22-30 Not Available [facility] (Lab) [address] [place], [address], 10/27/2021 13:25:12 10/28/19 22 10/27/2021 COMPR EHENS PREET METAB OLIC PANEL sodium 139 mmol/ L 137-14 5 Not Available [facility] (Lab) [address] [place], [address], 10/27/2021 13:25:12 10/28/19 22 10/27/2021 COMPR EHENS PREET METAB OLIC PANEL potassium 4.4 mmol/ L 3.5-5. 1 Not Available [facility] (Lab) [address] [place], [address], 10/27/2021 13:25:12 10/28/19 22 10/27/2021 COMPR EHENS PREET METAB OLIC PANEL chloride 105 mmol/ L 98-107 Not Available [facility] (Lab) [address] [place], [address], 10/27/2021 13:25:12 10/28/19 22 10/27/2021 COMPR EHENS PREET METAB OLIC PANEL anion gap 11.4 mmol/ L 14-22 low Not Available [facility] (Lab) [address] [place], [address], 10/27/2021 13:25:12 10/28/19 22 10/27/2021 COMPR EHENS PREET METAB OLIC PANEL glucose 102 mg/dL 70-99 high Not Available [facility] (Lab) [address] [place], [address], 10/27/2021 13:25:12 10/28/19 22 10/27/2021 COMPR EHENS PREET METAB OLIC PANEL BUN 18 mg/dL 8-19 Not Available [facility] (Lab) [address] [place], [address], 10/27/2021 13:25:12 10/28/19 22 10/27/2021 COMPR EHENS PREET METAB OLIC PANEL creatinine 0.72 mg/dL 0.66-1 .25 Not Available [facility] (Lab) [address] [place], [address], 10/27/2021 13:25:12 10/28/19 22 10/27/2021 COMPR EHENS PREET METAB OLIC PANEL aspartate aminotransfe rase 26 U/L 15-37 Not Available [facility] (Lab) [address] [place], [address], 10/27/2021 13:25:12 10/28/19 22 10/27/2021 COMPR EHENS PREET METAB OLIC PANEL GFR >60 Refer ence Range : [place] ge GFR Healt hy Adult : >60 [...] calcu lator is avail able on the [facility] websi te: [email or web address] :[email or web address] rg/pr ofess ional s/kdo qi/gf r_cal culat or Not Available [facility] (Lab) [address] [place], [address], 10/27/2021 13:25:12 10/28/19 22 10/27/2021 COMPR EHENS PREET METAB OLIC PANEL alkaline phosphatase 99 U/L 38-126 Not Available [facility] (Lab) [address] [place], [address], 10/27/2021 13:25:12 10/28/19 22 10/27/2021 COMPR EHENS PREET METAB OLIC PANEL alanine aminotransfe rase 24 U/L 0-35 Not Available [facility] (Lab) [address] [place], [address], 10/27/2021 13:25:12 10/28/19 22 10/27/2021 COMPR EHENS PREET METAB OLIC PANEL bilirubin, total 0.60 mg/dL 0.20-1 .30 Not Available [facility] (Lab) [address] [facility] [place], [address], 10/27/2021 13:25:12 10/28/19 22 10/27/2021 COMPR EHENS PREET METAB OLIC PANEL calcium 9.7 mg/dL 8.4-10 .2 Not Available [facility] (Lab) [address] [place], [address], 10/27/2021 13:25:12 10/28/19 22 10/27/2021 COMPR EHENS PREET METAB OLIC PANEL total protein 7.6 g/dL 6.3-8. 2 Not Available [facility] (Lab) [address] [place], [address], 10/27/2021 13:25:12 10/28/19 22 10/27/2021 COMPR EHENS PREET METAB OLIC PANEL albumin 4.6 g/dL 3.4-5. 0 Not Available [facility] (Lab) [address] [place], [address], 10/27/2021 13:25:12 10/28/19 22 10/27/2021 COMPR EHENS PREET METAB OLIC PANEL globulin 3.0 g/dL 2.6-4. 2 Not Available [facility] (Lab) [address] [place], [address], 10/27/2021 13:25:12 10/28/19 22 10/27/2021 COMPR EHENS PREET METAB OLIC PANEL A/G ratio 1.5 ratio 1.0-2. 0 Not Available [facility] (Lab) [address] [place], [address], 10/27/2021 13:25:12 10/28/19 22 10/27/2021 CBC/C OMPLE TE BLD COUNT W/DIF F mean red cell volume 93.0 fL 82.0-9 9.0 Not Available [facility] (Lab) [address] [place], [address], 10/27/2021 12:54:45 10/28/19 22 10/27/2021 CBC/C OMPLE TE BLD COUNT W/DIF F white blood cells 8.3 x10'3 /uL 4.2-10 .8 Not Available [facility] (Lab) [address] [place], [address], 10/27/2021 12:54:45 10/28/19 22 10/27/2021 CBC/C OMPLE TE BLD COUNT W/DIF F red blood cells 4.72 x10'6 /uL 3.80-5 .20 Not Available [facility] (Lab) [address] [place], [address], 10/27/2021 12:54:45 10/28/19 22 10/27/2021 CBC/C OMPLE TE BLD COUNT W/DIF F hemoglobin 14.1 g/dL 12.0-1 5.6 Not Available [facility] (Lab) [address] [place], [address], 10/27/2021 12:54:45 10/28/19 22 10/27/2021 CBC/C OMPLE TE BLD COUNT W/DIF F hematocrit 43.9 % 35.7-4 5.7 Not Available [facility] (Lab) [address] [place], [address], 10/27/2021 12:54:45 10/28/19 22 10/27/2021 CBC/C OMPLE TE BLD COUNT W/DIF F mean red cell hemoglobin 29.9 pg 27.0-3 3.0 Not Available [facility] (Lab) [address] [place], [address], 10/27/2021 12:54:45 10/28/19 22 10/27/2021 CBC/C OMPLE TE BLD COUNT W/DIF F mean RBC HGB concentratio n 32.1 g/dL 31.0-3 6.0 Not Available [facility] (Lab) [address] [place], [address], 10/27/2021 12:54:45 10/28/19 22 10/27/2021 CBC/C OMPLE TE BLD COUNT W/DIF F neutrophils 68.1 % 39.0-7 2.0 Not Available [facility] (Lab) [address] [place], [address], 10/27/2021 12:54:45 10/28/19 22 10/27/2021 CBC/C OMPLE TE BLD COUNT W/DIF F red cell distribution width 13.0 % 11.8-1 5.5 Not Available [facility] (Lab) [address] [facility] [place], [address], 10/27/2021 12:54:45 10/28/19 22 10/27/2021 CBC/C OMPLE TE BLD COUNT W/DIF F platelets 408 x10'3 /uL 150-40 0 high Not Available [facility] (Lab) [address] [place], [address], 10/27/2021 12:54:45 10/28/19 22 10/27/2021 CBC/C OMPLE TE BLD COUNT W/DIF F mean platelet volume 9.3 fL 9.0-12 .4 Not Available [facility] (Lab) [address] [place], [address], 10/27/2021 12:54:45 10/28/19 22 10/27/2021 CBC/C OMPLE TE BLD COUNT W/DIF F lymphocytes 19.4 % 16.0-4 7.0 Not Available [facility] (Lab) [address] [place], [address], 10/27/2021 12:54:45 10/28/19 22 10/27/2021 CBC/C OMPLE TE BLD COUNT W/DIF F monocytes 9.8 % 5.0-12 .0 Not Available [facility] (Lab) [address] [place], [address], 10/27/2021 12:54:45 10/28/19 22 10/27/2021 CBC/C OMPLE TE BLD COUNT W/DIF F eosinophils 1.4 % 1.0-7. 0 Not Available [facility] (Lab) [address] [place], [address], 10/27/2021 12:54:45 10/28/19 22 10/27/2021 CBC/C OMPLE TE BLD COUNT W/DIF F basophils 0.8 % 0.0-2. 0 Not Available [facility] (Lab) [address] [place], [address], 10/27/2021 12:54:45 10/28/19 22 10/27/2021 CBC/C OMPLE TE BLD COUNT W/DIF F immature granulocytes 0.5 % 0.00-0 .50 Not Available [facility] (Lab) [address] [place], [address], 10/27/2021 12:54:45 10/28/19 22 10/27/2021 CBC/C OMPLE TE BLD COUNT W/DIF F neutrophils, absolute count 5.66 x10'3 /uL 1.5-8. 0 Not Available [facility] (Lab) [address] [place], [address], 10/27/2021 12:54:45 10/28/19 22 10/27/2021 CBC/C OMPLE TE BLD COUNT W/DIF F lymphocytes, absolute count 1.62 x10'3 /uL 1.07-3 .43 Not Available [facility] (Lab) [address] [place], [address], 10/27/2021 12:54:45 10/28/19 22 10/27/2021 CBC/C OMPLE TE BLD COUNT W/DIF F monocytes, absolute count 0.82 x10'3 /uL 0.29-0 .99 Not Available [facility] (Lab) [address] [place], [address], 10/27/2021 12:54:45 10/28/19 22 10/27/2021 CBC/C OMPLE TE BLD COUNT W/DIF F eosinophils, absolute count 0.12 x10'3 /uL 0.02-0 .53 Not Available [facility] (Lab) [address] [place], [address], 10/27/2021 12:54:45 10/28/19 22 10/27/2021 CBC/C OMPLE TE BLD COUNT W/DIF F basophils, absolute count 0.07 x10'3 /uL 0.01-0 .08 Not Available [facility] (Lab) [address] [place], [address], 10/27/2021 12:54:45 10/28/19 22 10/27/2021 CBC/C OMPLE TE BLD COUNT W/DIF F immature granulocytes ,absolute 0.04 x10'3 /uL 0.00-0 .05 Not Available [facility] (Lab) [address] [place], [address], 10/27/2021 12:54:45 10/28/19 22 10/27/2021 CBC/C OMPLE TE BLD COUNT W/DIF F nucleated red blood cells 0.0 % -0 Not Available [facility] (Lab) [address] [place], [address], 10/27/2021 12:54:45 10/28/19 22 10/27/2021 CBC/C OMPLE TE BLD COUNT W/DIF F NRBC# 0.00 x10'3 /uL Not Available [facility] (Lab) [address] [place], [address], 10/27/2021 12:54:45 10/28/19 22 10/27/2021 LIPID PANEL cholesterol 245 mg/dL 140-19 9 high NIH LEATHA NSUS RECOM MENDA TION FOR AMINAH STERO L: ADULT CHILD LOW RISK: <200 <170 BORDE RLINE : <200- 239 ----- HIGH RISK: >240 >200 Not Available [facility] (Lab) [address] [place], [address], 10/27/2021 13:25:05 10/28/19 22 10/27/2021 LIPID PANEL triglyceride s 87 mg/dL 0-150 NIH LEATHA NSUS REPOR T RECOM MENDA TION FOR TRIGL YCERI LETICIA: ADULT CHILD LOW RISK: <150 ----- BODER LINE: 150-1 99 ----- HIGH RISK: >200 ----- Not Available [facility] (Lab) [address] [place], [address], 10/27/2021 13:25:05 10/28/19 22 10/27/2021 LIPID PANEL HDL cholesterol 77 mg/dL 40- Not Available [facility] (Lab) [address] [place], [address], 10/27/2021 13:25:05 10/28/19 22 10/27/2021 LIPID PANEL [...] WILL NOT BE REPOR DANNIE. Not Available [facility] (Lab) [address] [place], [address], 10/27/2021 13:25:05 01/19/20 23 01/18/2023 CBC/C OMPLE TE BLD COUNT W/DIF F white blood cells 8.0 x10'3 /uL 4.2-10 .8 Not Available [facility] (Lab) [address] [place], [address], 01/18/2023 13:08:32 01/19/20 23 01/18/2023 CBC/C OMPLE TE BLD COUNT W/DIF F red blood cells 4.79 x10'6 /uL 3.80-5 .20 Not Available [facility] (Lab) [address] [place], [address], 01/18/2023 13:08:32 01/19/20 23 01/18/2023 CBC/C OMPLE TE BLD COUNT W/DIF F hemoglobin 14.3 g/dL 12.0-1 5.6 Not Available [facility] (Lab) [address] [place], [address], 01/18/2023 13:08:32 01/19/20 23 01/18/2023 CBC/C OMPLE TE BLD COUNT W/DIF F hematocrit 44.1 % 35.7-4 5.7 Not Available [facility] (Lab) [address] [place], [address], 01/18/2023 13:08:32 01/19/20 23 01/18/2023 CBC/C OMPLE TE BLD COUNT W/DIF F mean red cell volume 92.1 fL 82.0-9 9.0 Not Available [facility] (Lab) [address] [place], [address], 01/18/2023 13:08:32 01/19/20 23 01/18/2023 CBC/C OMPLE TE BLD COUNT W/DIF F mean red cell hemoglobin 29.9 pg 27.0-3 3.0 Not Available [facility] (Lab) [address] [place], [address], 01/18/2023 13:08:32 01/19/20 23 01/18/2023 CBC/C OMPLE TE BLD COUNT W/DIF F mean RBC HGB concentratio n 32.4 g/dL 31.0-3 6.0 Not Available [facility] (Lab) [address] [place], [address], 01/18/2023 13:08:32 01/19/20 23 01/18/2023 CBC/C OMPLE TE BLD COUNT W/DIF F red cell distribution width 12.7 % 11.8-1 5.5 Not Available [facility] (Lab) [address] [place], [address], 01/18/2023 13:08:32 01/19/20 23 01/18/2023 CBC/C OMPLE TE BLD COUNT W/DIF F platelets 433 x10'3 /uL 150-40 0 high Not Available [facility] (Lab) [address] [place], [address], 01/18/2023 13:08:32 01/19/20 23 01/18/2023 CBC/C OMPLE TE BLD COUNT W/DIF F mean platelet volume 9.1 fL 9.0-12 .4 Not Available [facility] (Lab) [address] [place], [address], 01/18/2023 13:08:32 01/19/20 23 01/18/2023 CBC/C OMPLE TE BLD COUNT W/DIF F neutrophils 66.2 % 39.0-7 2.0 Not Available [facility] (Lab) [address] [place], [address], 01/18/2023 13:08:32 01/19/20 23 01/18/2023 CBC/C OMPLE TE BLD COUNT W/DIF F lymphocytes 19.2 % 16.0-4 7.0 Not Available [facility] (Lab) [address] [place], [address], 01/18/2023 13:08:32 09/2101/18/2023 CBC/C OMPLE TE BLD COUNT W/DIF F monocytes 10.2 % 5.0-12 .0 Not Available [facility] (Lab) [address] [place], [address], 01/18/2023 13:08:32 01/19/20 23 01/18/2023 CBC/C OMPLE TE BLD COUNT W/DIF F eosinophils 3.4 % 1.0-7. 0 Not Available [facility] (Lab) [address] [place], [address], 01/18/2023 13:08:32 01/19/20 23 01/18/2023 CBC/C OMPLE TE BLD COUNT W/DIF F basophils 0.9 % 0.0-2. 0 Not Available [facility] (Lab) [address] [place], [address], 01/18/2023 13:08:32 01/19/20 23 01/18/2023 CBC/C OMPLE TE BLD COUNT W/DIF F immature granulocytes 0.1 % 0.00-0 .50 Not Available [facility] (Lab) [address] [place], [address], 01/18/2023 13:08:32 01/19/20 23 01/18/2023 CBC/C OMPLE TE BLD COUNT W/DIF F neutrophils, absolute count 5.28 x10'3 /uL 1.5-8. 0 Not Available [facility] (Lab) [address] [place], [address], 01/18/2023 13:08:32 01/19/20 23 01/18/2023 CBC/C OMPLE TE BLD COUNT W/DIF F lymphocytes, absolute count 1.53 x10'3 /uL 1.07-3 .43 Not Available [facility] (Lab) [address] [place], [address], 01/18/2023 13:08:32 01/19/20 23 01/18/2023 CBC/C OMPLE TE BLD COUNT W/DIF F monocytes, absolute count 0.81 x10'3 /uL 0.29-0 .99 Not Available [facility] (Lab) [address] [place], [address], 01/18/2023 13:08:32 01/19/20 23 01/18/2023 CBC/C OMPLE TE BLD COUNT W/DIF F eosinophils, absolute count 0.27 x10'3 /uL 0.02-0 .53 Not Available [facility] (Lab) [address] [place], [address], 01/18/2023 13:08:32 01/19/20 23 01/18/2023 CBC/C OMPLE TE BLD COUNT W/DIF F basophils, absolute count 0.07 x10'3 /uL 0.01-0 .08 Not Available [facility] (Lab) [address] [place], [address], 01/18/2023 13:08:32 01/19/20 23 01/18/2023 CBC/C OMPLE TE BLD COUNT W/DIF F immature granulocytes ,absolute 0.01 x10'3 /uL 0.00-0 .05 Not Available [facility] (Lab) [address] [place], [address], 01/18/2023 13:08:32 01/19/20 23 01/18/2023 CBC/C OMPLE TE BLD COUNT W/DIF F nucleated red blood cells 0.0 % -0 Not Available [facility] (Lab) [address] [place], [address], 01/18/2023 13:08:32 01/19/20 23 01/18/2023 CBC/C OMPLE TE BLD COUNT W/DIF F NRBC# 0.00 x10'3 /uL Not Available [facility] (Lab) [address] [place], [address], 01/18/2023 13:08:32 01/19/20 23 01/18/2023 LIPID PANEL cholesterol 183 mg/dL 140-19 9 NIH LEATHA NSUS RECOM MENDA TION FOR AMINAH STERO L: ADULT CHILD LOW RISK: <200 <170 BORDE RLINE : <200- 239 ----- HIGH RISK: >240 >200 Not Available [facility] (Lab) [address] [place], [address], 01/18/2023 13:31:00 01/19/20 23 01/18/2023 LIPID PANEL triglyceride s 66 mg/dL 0-150 NIH LEATHA NSUS REPOR T RECOM MENDA TION FOR TRIGL YCERI LETICIA: ADULT CHILD LOW RISK: <150 ----- BODER LINE: 150-1 99 ----- HIGH RISK: >200 ----- Not Available [facility] (Lab) [address] [place], [address], 01/18/2023 13:31:00 01/19/20 23 01/18/2023 LIPID PANEL HDL cholesterol 65 mg/dL 40- Not Available [facility] (Lab) [address] [place], [address], 01/18/2023 13:31:00 01/19/20 23 01/18/2023 LIPID PANEL [...] WILL NOT BE REPOR DANNIE. Not Available [facility] (Lab) [address] [place], [address], 01/18/2023 13:31:00 01/19/20 23 01/18/2023 COMPR EHENS PREET METAB OLIC PANEL sodium 141 mmol/ L 137-14 5 Not Available [facility] (Lab) [address] [place], [address], 01/18/2023 13:31:05 01/19/20 23 01/18/2023 COMPR EHENS PREET METAB OLIC PANEL potassium 4.5 mmol/ L 3.5-5. 1 Not Available [facility] (Lab) [address] [place], [address], 01/18/2023 13:31:05 01/19/20 23 01/18/2023 COMPR EHENS PREET METAB OLIC PANEL chloride 103 mmol/ L 98-107 Not Available [facility] (Lab) [address] [place], [address], 01/18/2023 13:31:05 01/19/20 23 01/18/2023 COMPR EHENS PREET METAB OLIC PANEL carbon dioxide 24 mmol/ L 22-30 Not Available [facility] (Lab) [address] [place], [address], 01/18/2023 13:31:05 01/19/20 23 01/18/2023 COMPR EHENS PREET METAB OLIC PANEL anion gap 18.5 mmol/ L 14-22 Not Available [facility] (Lab) [address] [place], [address], 01/18/2023 13:31:05 01/19/20 23 01/18/2023 COMPR EHENS PREET METAB OLIC PANEL glucose 97 mg/dL 70-99 Not Available [facility] (Lab) [address] [place], [address], 01/18/2023 13:31:05 01/19/20 23 01/18/2023 COMPR EHENS PREET METAB OLIC PANEL BUN 14 mg/dL 8-19 Not Available [facility] (Lab) [address] [place], [address], 01/18/2023 13:31:05 01/19/20 23 01/18/2023 COMPR EHENS PREET METAB OLIC PANEL creatinine 0.70 mg/dL 0.66-1 .25 Not Available [facility] (Lab) [address] [place], [address], 01/18/2023 13:31:05 01/19/20 23 01/18/2023 COMPR EHENS PREET METAB OLIC PANEL GFR >60 Refer ence Range : [place] ge GFR Healt hy Adult : >60 [...] or ethni c subgr oups, such as Hisne nics. Outsi de the valid ated carol [...] s/kdo qi/gf r_cal culat or Not Available [facility] (Lab) [address] [place], [address], 01/18/2023 13:31:05 01/19/20 23 01/18/2023 COMPR EHENS PREET METAB OLIC PANEL alkaline phosphatase 105 U/L 38-126 Not Available [facility] (Lab) [address] [place], [address], 01/18/2023 13:31:05 01/19/20 23 01/18/2023 COMPR EHENS PREET METAB OLIC PANEL alanine aminotransfe rase 28 U/L 0-35 Not Available [facility] (Lab) [address] [place], [address], 01/18/2023 13:31:05 01/19/20 23 01/18/2023 COMPR EHENS PREET METAB OLIC PANEL aspartate aminotransfe rase 25 U/L 15-37 Not Available [facility] (Lab) [address] [place], [address], 01/18/2023 13:31:05 01/19/20 23 01/18/2023 COMPR EHENS PREET METAB OLIC PANEL bilirubin, total 0.50 mg/dL 0.20-1 .30 Not Available [facility] (Lab) [address] [place], [address], 01/18/2023 13:31:05 01/19/20 23 01/18/2023 COMPR EHENS PREET METAB OLIC PANEL calcium 9.4 mg/dL 8.4-10 .2 Not Available [facility] (Lab) [address] [place], [address], 01/18/2023 13:31:05 01/19/20 23 01/18/2023 COMPR EHENS PREET METAB OLIC PANEL total protein 7.5 g/dL 6.3-8. 2 Not Available [facility] (Lab) [address] [place], [address], 01/18/2023 13:31:05 01/19/20 23 01/18/2023 COMPR EHENS PREET METAB OLIC PANEL albumin 4.6 g/dL 3.4-5. 0 Not Available [facility] (Lab) [address] [place], [address], 01/18/2023 13:31:05 01/19/20 23 01/18/2023 COMPR EHENS PREET METAB OLIC PANEL globulin 2.9 g/dL 2.6-4. 2 Not Available [facility] (Lab) [address] [place], [address], 01/18/2023 13:31:05 01/19/20 23 01/18/2023 COMPR EHENS PREET METAB OLIC PANEL A/G ratio 1.6 ratio 1.0-2. 0 Not Available [facility] (Lab) [address] [place], [address], 01/18/2023 13:31:05 01/19/20 23 01/18/2023 T4 FREE free T4 1.16 NG/dL 0.78-2 .19 Not Available [facility] (Lab) [address] [place], [address], 01/18/2023 13:43:27 01/19/20 23 01/18/2023 T3 FREE free T3 3.5 pg/mL 2.77-5 .27 Not Available [facility] (Lab) [address] [place], [address], 01/18/2023 13:43:29 01/19/20 23 01/18/2023 TSH thyroid-stim ulating hormone 1.010 uIU/m L 0.465- 4.680 Not Available [facility] (Lab) [address] [place], [address], 01/18/2023 14:08:36 11/17/19 21 XR, chest , 2 view [facility] [address] [place] [address] Patien t Name: JOSE GAYTAN [facility] Access ion #: [id number] Sex: F : 1960 0 Locati [...] 2 view chest. Page 1 of 2 [facility] Patikalli t Name: CINTHYA GAYTANAllyson Nurigene Access ion #: [id number] Sex: F : 1960 0 Exam Date: 9:17 AM Exam Name: XR CHEST 2V Admitt ing Diagno sis(es ): Create d and electr onical ly signed by: Juan Manuel Eaton ch, DO Signed Date: 9:50 AM (CT) Dictat ed by: Juan Manuel Eaton ch, DO DD: 9:50 AM (CT) DT: 9:50 AM (CT) Page 2 of 2 [id number] [facility] (Imaging) [address] [place], [address], 06/28/2022 13:01:32 11/17/19 21 [facility] [address] [place] [address] Patikalli t Name: CINTHYA GAYTANAllyson Nurigene Access ion #: [id number] Sex: F : 1960 0 Locati [...] e of -0.6. Page 1 of 2 [facility] t Name: JOSE GAYTAN [facility] Access ion #: [id number] Sex: F : 1960 0 Exam [...] 9:17 AM (CT) Page 2 of 2 [id number] [facility] (Imaging) [address], [place], [address], 06/28/2022 13:01:32 11/23/19 21 MAMMO , scree jefry, digit al, bilat eral [facility] [address], [place] [address] [phone] Patien t Name: JOSE GAYTAN Nurigene Access ion #: [id number] Sex: F : 1960 0 Locati [...] tion are seen. Page 1 of 2 [facility] Job t Name: JOSE GAYTAN Nurigene Access ion #: [id number] Sex: F : 1960 0 Exam [...] ed prompt ly to the job [facility]. A negati ve mammog salazar report [...] AM (CT) Page 2 of 2 MIGRATION. [facility] (Imaging) [address] [place], [address], 06/28/2022 13:01:32 12/03/19 21 12/02/2020 compl ete PFT* No observ ation record ed. MIGRATION. [facility] (Imaging) [address] [place] [address], [phone], 06/28/2022 13:01:32 01/29/20 21 01/28/2021 XR, foot No observ ation record ed. MIGRATION. [facility] (Imaging) [address] [place] [address], [phone], 06/28/2022 13:01:32 01/29/20 21 01/28/2021 XR, ankle No observ ation record ed. MIGRATION. [facility] (Imaging) [address] [facility] [address], [place], [address], 06/28/2022 13:01:32 04/09/20 23 MAMMO , scree jefry, digit al, bilat eral [facility] [address] [place], [place] [address]78 [phone] Patien t Name: JOSE GAYTAN [facility] Access ion #: [id number] Sex: F : 1960 0 Dictat [...] presen t. 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 No suspic ious masses , manny ectura l distor tion, asymme tries or suspic ious calcif icatio ns in both breast s. IMPRES SEBASTIAN: No eviden ce of malign tova. Recomm end annual mammog odessa. BIRADS : 2 - Benign Electr onical ly Signed by: Sammy Mcgee at 2022 10:59: 08 AM Page 1 [email or web address] [facility] (Imaging) [address] [place], [address], 04/19/2023 15:59:29 Result Notes None recorded. Problems Name Problem SNOMED Code Status Onset Date Resolution Date Notes Provider Name and Address Organization Details Recorded Time Disorder of shoulder 194469372 Active Not Available [facility] 3 06:17:07 Acute sinusitis 21606198 Active 2021 Not Available [facility] 3 06:17:07 Eruption 680543142 Completed Not Available [facility] 3 12:56:03 Bronchiti s 82897433 Completed Not Available [facility] 3 12:56:03 Vitamin D deficienc y 70729060 Active Not Available [facility] 3 06:17:07 Migraine 25578975 Active Not Available [facility] 3 06:17:07 Pain of shoulder region 77284126 Completed Not Available [facility] 3 12:56:04 Cough 44711162 Active 2021 Not Available [facility] 3 06:17:07 Upper respirato ry infection 60105837 Active 2021 Not Available [facility] 3 06:17:07 Hyperlipi demia 80180164 Active 2021 Not Available [facility] 3 06:17:07 COVID-19 074981397 Active 2021 Not Available [facility] 3 06:17:07 Contact dermatiti s caused by urushiol from [facility] tricia 871485435 Active 2022 Not Available [facility] 3 06:17:07 Fatigue 76801471 Active 2022 Not Available [facility] 3 06:17:07 Overweigh t 952891208 Active 2022 Not Available [facility] 3 06:17:07 Pain of right shoulder joint 94498233511 322747 Active 2022 FEDE Martínez, [place] - [place] [employer] [facility] 3 11:36:52 Problem Notes None recorded. Procedures Surgical History Date Name Laterality Status Provider Name and Address Organization Details Recorded Time excision of lipoma completed Not Available [facility] 06/28/2022 12:53:21 Cholecystectomy completed Not Available [facility] 06/28/2022 12:53:21 Imaging Results Imaging Date Name Status LastModified by Organiz ation Details LastModified Time 11/16/2020 XR, chest, 2 view completed [id number] [facility] (Imaging) [address] [place], [address], 06/28/2022 13:01:32 11/16/2020 DEXA, axial skeleton completed [id number] [facility] (Imaging) [address] [place], [address], 06/28/2022 13:01:32 11/22/2020 MAMMO, screening, digital, bilateral completed [id number] [facility] (Imaging) [address] [place], [address], 06/28/2022 13:01:32 12/02/2020 complete PFT* completed [id number] [facility] (Imaging) [address] [place] [address], [phone], 06/28/2022 13:01:32 01/28/2021 XR, foot completed [id number] [facility] (Imaging) [address] [place] [address], [phone], 06/28/2022 13:01:32 01/28/2021 XR, ankle completed [id number] [facility] (Imaging) [address] [place] [address], [phone], 06/28/2022 13:01:32 04/09/2023 MAMMO, screening, digital, bilateral completed [email or web address] [facility] (Imaging) [address] [place], [address], 04/19/2023 15:59:29 Procedure Notes None recorded. Medical [...] kg/m2 160.02 cm 90 /min 97.6 [degF] 55730.6 2 g 144 mm[Hg] 90 mm[Hg] Not Available [facility] 3 12:53:24 Date Recorded Body mass index (BMI) Body height Heart rate Body temperature Body weight Systolic blood pressure Diastolic blood pressure Provider Name and Address Organization Details Last Updated DateTime 2 36.5 kg/m2 160.02 cm 90 /min 96.2 [degF] 55647.0 3 g 136 mm[Hg] 80 mm[Hg] Not Available [facility] 3 12:53:24 Date Recorded Body height Body mass index (BMI) Body weight Body temperature Heart rate Oxygen saturation Oxygen saturation in Arterial blood by Pulse oximetry Systolic blood pressure Diastolic blood pressure Provider Name and Address Organization Details Last Updated DateTime 3 160.02 cm 37.6 kg/m2 75812.5 8 g 98.6 [degF] 94 /min 99 % 99 % 132 mm[Hg] 88 mm[Hg] Ivanna Morse RN [facility] [employer] [facility] 3 14:29:36 Date Recorded Body height Body mass index (BMI) Body weight Body temperature Heart rate Systolic blood pressure Diastolic blood pressure Provider Name and Address Organization Details Last Updated DateTime 3 160.02 cm 37.9 kg/m2 57025.7 7 g 97.2 [degF] 88 /min 122 mm[Hg] 80 mm[Hg] FEDE Ivy [facility] [employer] [facility] 3 10:57:52 Social History Question Answer Notes LastModified by Organizat ion Details LastModified Time Tobacco Smoking Status Never Smoker Not Available [facility] 06/28/2022 12:52:55 Do You Have An Advance Directive? No [id number].87297 [id number] Information not available 06/28/2022 What Is Your Level Of Caffeine Consumption? Moderate MIGRATION.90103 15020 Information not available 06/28/2022 How Much Tobacco Do You Chew? None MIGRATION.85628 51628 Information not available 06/28/2022 In The 14 Days Before Symptom Onset, Have You Had Close Contact With A Laboratory-confir med COVID-19 While That Case Was Ill? No [id number].42128 70938 Information not available 06/28/2022 In The 14 Days Before Symptom Onset, Have You Had Close Contact With A Person Who Is Under Investigation For COVID-19 While That Person Was Ill? No MIGRATION.40925 18524 Information not available 06/28/2022 What Type Of Diet Are You Following? REGULAR MIGRATION.00855 86377 Information not available 06/28/2022 Which Illicit Or Recreational Drugs Have You Used? None MIGRATION.13439 92616 Information not available 06/28/2022 Have There Been Any Changes To Your Family Or Social Situation? No Information no t available 09/19/2022 Are There Any Guns Present In Your Home? No MIGRATION.79546 70889 Information not available 06/28/2022 Do You Use Insect Repellent Routinely? No [email or web address] Information not available 09/19/2022 Where Do You Live? SingleLevelHouse [email or web address] Information not available 09/19/2022 What Was The Date Of Your Most Recent Tobacco Screening? 04/19/2023 [email or web address] Information not available 04/19/2023 Have You Ever Been Counseled For Unhealthy Alcohol Use? No [email or web address] Information not available 09/19/2022 Do You Have Any Pets? Yes [email or web address] Information not available 09/19/2022 What Is Your Relationship Status? [email or web address] Information not available 09/19/2022 Do You Use Your Seat Belt Or Car Seat Routinely? Yes [email or web address] Information not available 09/19/2022 Do You Have Smoke And Carbon Monoxide Detectors In Your Home? Yes [email or web address] Information not available 09/19/2022 Are You Passively Exposed To Smoke? No [email or web address] Information no t available 09/19/2022 Are There Any Smokers In Your House? No [email or web address] Information not available 09/19/2022 How Much Tobacco Do You Smoke? No MIGRATION.35579 52512 Information not available 06/28/2022 Do You Use Sunscreen Routinely? Yes MIGRATION.99363 77725 Information not available 06/28/2022 How Many Years Have You Smoked Tobacco? 0 MIGRATION.44783 96998 Information not available 06/28/2022 Sex: Unknown Functional Status Question Answer Note LastModified by Organizat ion Details LastModified Time Do you use any illicit or recreational drugs? No [email or web address] Information not available 09/19/2022 What is your level of alcohol consumption? Occasional MIGRATION.192949 6776 Information not available 06/28/2022 Do you or have you ever used smokeless tobacco? Never used smokeless tobacco MIGRATION.372818 2165 Information not available 06/28/2022 Are you currently employed? No [email or web address] Information not available 09/19/2022 What is your occupation? retired MIGRATION.109137 9917 Information not available 06/28/2022 Do you or have you ever used e-cigarettes or vape? Never used electronic cigarettes MIGRATION.239146 7231 Information not available 06/28/2022 What is your exercise level? Occasional MIGRATION.449299 2161 Information not available 06/28/2022 Mental Status Question Answer Note LastModified by Organization D etails LastModified Time Do you feel stressed (tense, restless, nervous, or anxious, or unable to sleep at night)? [id number] [email or web address] Information not available 09/19/2022 Family History Relationship Description Onset Age of this Age Resolved Age Notes LastModified by Organization Details LastModified Time Mother Renal failure syndrome MIGRATION.950 [id number] Not available 06/28/2022 12:53:21 Father Malignant neoplastic disease MIGRATION.816 [id number] Not available 06/28/2022 12:53:21 Brother Diabetes mellitus MIGRATION.860 [id number] Not available 06/28/2022 12:53:21 Brother Myocardial infarction MIGRATION.982 [id number] Not available 06/28/2022 12:53:21 Sister Congenital hemangioma MIGRATION.555 [id number] Not available 06/28/2022 12:53:21 Sister Diabetes mellitus MIGRATION.641 [id number] Not available 06/28/2022 12:53:21 Medical History Condition Response NERVE DISEASE N BLINDNESS N RHEUMATIC FEVER N KIDNEY STONES N BLADDER PROBLEMS N MRSA N OTHER # 1 N POLIO N LUNG DISEASE/DISORDER N RADIATION / CHEMOTHERAPY N COPD N Other # 2 N BLOOD DISEASES N EAR OR HEARING PROBLEMS N MUMPS N DEPRESSION (INCLUDING POST ) N BOWEL PROBLEMS N STROKE/TIA N ULCERS N BENIGN PROSTATIC HYPERPLASIA N MEASLES N MYOCARDIAL INFARCTION N OBESITY N GERD/NAUSEA N ANEURYSM N URINARY/BLADDER/KIDNEY PROBLEMS N CORONARY ARTERY DISEASE (CAD) N ADDICTION CONCERNS N Impotence N ENDOMETRIOSIS N USE OF BLOOD THINNERS N SKIN [...] APNEA N CHICKENPOX N INFECTIOUS DISEASE N PROSTATE N HEART ARRHYTHMIA N INSOMNIA N HIGH CHOLESTEROL / HYPERLIPIDEMIA Y EYE PROBLEMS N HYPERTHYROIDISM N EDEMA N CHRONIC PAIN SYNDROME N HYPOTHYROIDISM N CAROTID BLOCKAGE N CONSTIPATION N BACK / NECK PROBLEMS N HAVE YOU BEEN HOSPITALIZED OR SEEN IN [facility] ER IN THE PAST YEAR ? N ATHEROSCLEROSIS N BREAST PROBLEMS N DIALYSIS N ECZEMA N OSTEOPOROSIS N ARTHRITIS N APPENDICITIS N DIABETES, TYPE N BAD TEETH N ENT N HEARTBURN / REFLUX N AUTISM SPECTRUM DISORDER (ASD) N HEPATITIS / LIVER DISEASE N GOUT N SLEEP DISORDER N ALZHEIMER'S DISEASE N Brain Problems N DEMENTIA N HERPES N SEIZURES/EPILEPSY N HEADACHES/MIGRAINES Y VASCULAR DISEASE N PACEMAKER N Blood Disorder N DIZZINESS N HEART DISEASE/HEART PROBLEMS N KIDNEY DISEASE N MULTIPLE SCLEROSIS N CANCER: SPECIFY N CARDIAC ARRHYTHMIA N ATRIAL FIBRILLATION N Gall Stones N PULMONARY EMBOLISM N AUTOIMMUNE DISEASE N Gynecological HistoryNo gynecological history recorded. Obstetrics History GPAL:G 0 P 0 0 0 0 Immunizations Vaccine Type Date Status Note Provider Nam e and Address Organization Details Recorded Time Tdap 11/04/2020 completed Not Available [facility] 04/14/2023 06:17:07 zoster live 04/10/2014 completed [facility] 04/14/2023 06:17:07 Past Encounters Encounter ID Performer Location Encounter Start Date Encounter Closed Date Diagnosis/Indication Diagnosis SNOMED-CT Code Diagnosis ICD10 Code Diagnosis Note [id number] Isaias Gaytan MD [facility] Internal [facility] [place] [address] [facility] [place] [address] 11/04/2020 00:00:00 11/04/2020 23:23:09 [id number] Isaias Gaytan MD [facility] Internal Med [place] [address] [facility] [address] 10/06/2021 00:00:00 10/31/2021 11:25:40 [id number] Isaias Gyatan MD [facility] Internal [place] [address] [place] [address] [place] [address] 09/19/2022 14:20:43 09/19/2022 15:11:52 Hyperlipidemia 88354254 E78.5 Fatigue 24835119 R53.83 Overweight 841409724 E66 .3 Screening mammography 24 834790 Z12.31 [id number] Isaias Gaytan MD [facility] Internal [place] [address] [place] [address] [place] [address] 04/19/2023 10:49:19 04/19/2023 11:39:47 Hyperlipidemia 70956831 E78.5 Pain of ri ght shoulder joint 8285893510 1212572 M25.511 Health Concerns Section Related Observation LastModified by Organization Detai ls LastModified Time None Recorded Concern Status LastModified by Organization Details LastModified Time None Recorded Advance Directives Directive N: Payers Encounter Date Sequence Insurance Name Policy Number Policy Rivas Covered Member ID Rivas Member ID Guarantor Name 09/19/2022 1 [place] [id number] Karlie Gaytan [id number] Karlie Gaytan 04/19/2023 1 [place] [id number] Karlie Gaytan [id number] Karlie Gaytan Notes Date Note Type Note Provider Name and Address Organization Details Recorded Time 3 text/html some nonspecific fatiguetrouble losing weightpoison tricia settling down with steroiddyslipidemia needs check Isaias Gaytan MD [address] [place] [address], [place], [address], [employer] [facility] 09/19/2022 22:52:27 3 text/html Dyslipidemia Lipitor she bad pain in her right shoulder since she suffered a fall couple months ago no numbness or tingling just consistent pain Isaias Gaytan MD [address] [place] [address], [address], [place], [address], [employer] [facility] 04/19/2023 22:03:02 OBGyn Episode No OBEpisode recorded.
--- OUTSIDE RECORDS SUMMARY | 2024-09-17 10:47 | XMS_ITS | Data Portability ---
Author Organization JAYCOB Eliu ARTEAGA Address [address] [facility] [place] [address] Care Team Providers Care Tiltrotor Crew Chief Name Role Phone MAGGY BURR Primary Care Provider Unavailab le Assessment Encounter Date Assessment Date Assessment LastModified by Organization Details LastModified Time 01/23/2024 01/23/2024 Mammogram due in Mar. colonoscopy has had two in the past . will await records to determine timeline. eye exam UTD dental overdue. no dental insurance. labs due. Not available 01/23/2024 11:50:07 08/27/2024 08/27/2024 Mammogram due colonoscopy has had two in the past . Is due for current repeat eye exam UTD dental overdue. no dental insurance. labs due. Not available 09/07/2024 23:48:39 Plan of Treatment Reminders Order Date Submit Date Provider Last Modified By Organization Details Last Modified Time Details Appointments ANY 15 2024 09:00A M WILIAN Abraham Not available Not available Not available Lab TSH + free T4, serum 2024 025 [email or web address] [facility], [address], [place], [address], 09/17/2024 10:01:27 HbA1c (hemog lobin A1c), blood 2024 025 [email or web address] [facility], [address], [place], [address], 09/17/2024 10:01:27 CMP, serum or plasma 2024 025 [email or web address] [facility], [address], [place], [address], 09/17/2024 10:01:26 CBC w/ auto diff 2024 025 [email or web address] [facility], [address], [place], [address], 09/17/2024 10:01:26 vitami n B12 + folate , serum or blood 2024 025 [email or web address] [facility], [address], [place], [address], 09/17/2024 10:01:27 lipid panel, serum 2024 025 [email or web address] [facility], [address], [place], [address], 09/17/2024 10:01:26 insuli n, serum 2024 025 [email or web address] [facility], [address], [place], [address], 09/17/2024 10:01:26 TSH + free T4, serum 2023 024 [email or web address] [facility], [address], [place], [address], 02/12/2024 13:26:19 CMP, serum or plasma 2023 024 [email or web address] [facility], [address], [place], [address], 02/12/2024 13:26:19 CBC w/ auto diff 2023 024 [email or web address] [facility], [address], [place], [address], 02/12/2024 13:26:19 vitami n B12 + folate , serum or blood 2023 024 [email or web address] [facility], [address], [place], [address], 02/12/2024 13:26:19 lipid panel, serum 2023 024 SHIRLENE [facility], [address], [place], [address], 02/12/2024 13:26:19 HbA1c (hemog lobin A1c), blood 2023 024 [email or web address] [facility], [address], [place], [address], 02/12/2024 13:26:19 insuli n, serum 2023 024 [email or web address] [facility], [address], [place], [address], 02/12/2024 13:01:09 Referral otolar yngolo gist referr al - chroni c nasal conges tion, Xylome tazoli ne user x 30 years. needs struct ural evalua tion. 2023 024 bladimir Alberto, [address], [place], [address], 03/25/2024 14:12:33 Procedures colono scopy screen ing (PROC) [email or web address] [place] [address] [facility], [address], [place], [address], 08/27/2024 10:44:18 Surgeries None record ed. Imaging MAMMO, screen ing, digita l, bilate ral 2024 025 ATHENAFAX [facility], [address], [place], [address], 08/27/2024 12:15:11 MAMMO, screen ing, digita l, bilate ral 2023 024 [email or web address] Not available 08/26/2024 16:29:12 Medication Orders mupiro shy 2 % topica l ointme nt 2023 [facility], [address] , [place], [place], [id number], 03/05/2024 18:26:46 amoxic illin 875 mg-pot assium clavul anate 125 mg tablet 2023 024 [facility], [address] , [place], [place], [id number], 03/05/2024 18:26:36 atorva statin 20 mg tablet 2023 024 [facility], [address] , [place], [place], [id number], 02/20/2024 12:12:26 Zepbou nd 2.5 mg/0.5 mL subcut aneous pen inject or [address] [facility], [address] , [place], [place], [id number], 09/07/2024 23:46:47 Patient TargetsNo targets recorded. 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 needs structural evaluation. Referring Physician: Maggy Burr, Internal Medicine, Encounter Date: 01/23/2024 Results Created Date Observation Date Name Description Value Unit Range Abnormal Flag Note LastModifiedBy Organization Detail LastModifiedTime 02/18/2002/19/2024 ALK PHOS ISOEN ZYME alkaline phosphatase 157 IU/L 44-121 above high normal Not Available [facility] ([facility]) [address], [place], [address], 02/19/2024 15:11:24 02/18/2002/19/2024 ALK PHOS ISOEN ZYME liver fraction: 65 % 18-85 Not Available [facility] ([facility]) [address], [place], [address], 02/19/2024 15:11:24 02/18/20 24 02/19/2024 ALK PHOS ISOEN ZYME bone fraction: 27 % 14-68 Not Available [facility] ([facility]) [address], [place], [address], 02/19/2024 15:11:24 02/18/2002/19/2024 ALK PHOS ISOEN ZYME intestinal frac.: 7 % 0-18 Not Available [facility] ([facility]) [address], [place], [address], 02/19/2024 15:11:24 02/19/2002/19/2024 US, liver No observ ation record ed. [facility] [address], [place], [address], 02/20/2024 12:07:13 02/20/2004/09/2023 MAMMO parisa, digit al, bilat eral No observ ation record ed. Not Available 2023 22:47:33 02/20/20 24 11/11/2013 colon oscop y scree jefry (PROC ) No observ ation record ed. [facility] Not Available 2023 11:52:31 Result Notes None recorded. Problems Name Problem SNOMED Code Status Onset Date Resolution Date Notes Provider Name and Address Organization Details Recorded Time Body mass index 30+ - obesity 919522944 Active 2023 WILIAN Abraham Attn: Accountmayur mojica,[address] [facility], [place], [address], [place] [facility] 5 10:27:27 Long-term drug therapy Active 2023 WILIAN Abraham Attn: Accountin g,[address] [facility] [facility], [place], [address], [place] [facility] 4 11:25:53 Hyperlipide lauri 82268172 Active 2023 WILIAN Abraham Attn: Accountin g,[address] [facility] [facility], [place], [address], [place] [facility] 4 11:25:54 Obesity 007617553 Active 2023 WILIAN Abraham Attn: Scott g,[address], [place], [address], [place] [facility] 4 11:25:58 Nasal congestion 00316178 Active 2023 WILIAN Abraham Attn: Scott g,[address], [place], [address], [place] [facility] 4 18:47:37 Elevated blood-press ure reading without diagnosis of hypertensio n 314088168 Active 2023 WILIAN Abraham Attn: Accountin g,[address] [facility] [facility], [place], [address], [place] [facility] 4 12:15:13 Prediabetes 726126216 Active 2023 WILIAN Abraham Attn: Accountin g,[address], [place], [address], [place] [facility] 4 12:15:14 Obese class I 9817523060167 07 Active 2024 WILIAN Abraham Attn: Scott mojica,[address], [place], [address], [facility] 5 10:27:39 Benign hypertensio n 60339565 Active 2024 WILIAN Abraham Attn: Scott mojica,[address], [place], [address], [facility] 5 23:48:50 History of polyp of colon 558485791 Active 2024 WILIAN Abraham Attn: Scott mojica,[address], [place], [address], [facility] 5 23:49:14 Problem Notes None recorded. Procedures Surgical History Date Name Laterality Status Provider Name and Address Organization Details Recorded Time colonoscopy completed Lashanda Freeman [facility] 02/20/2024 12:15:50 nasal sinus endoscopy completed Geraldine Burroughs [place] - [place] 08/27/2024 10:21:13 Imaging Results Imaging Date Name Status LastModified by Organiz ation Details LastModified Time 02/19/2024 US, liver completed [facility] [address], [place], [address], 02/20/2024 12:07:13 04/09/2023 MAMMO, screening, digital, bilateral [...] active Not Available Not Available Not Avai lablester azithromyci n 250 mg tablet 01/22 completed Not Available Not Available Not Available omeprazole 40 mg capsule,del ayed release Take 1 capsule by oral route for 30 days. active Not Available Not Available No t Available famotidine 20 mg tablet Take by oral route for 30 days. active Not Available Not Available No t Available mupirocin 2 % topical ointment 03/05 completed Not Available Not Available Not Available methylpredn isolone 4 mg tablets in a dose pack 03/05 completed Not Available Not Available Not Available amoxicillin 875 mg-potassiu m clavulanate 125 mg tablet Take 1 tablet every 12 hours by oral route with meal(s). 03/05 completed Not Available Not Available Not Available Vitamin D2 08/27 completed Not Available Not Available Not Available Xhance 93 mcg/actuati on breath activated aerosol USE 1 SPRAY PER NOSTRIL TWICE A DAY active Not Available Not Available No t Available Zepbound 2.5 mg/0.5 mL subcutaneou s pen injector Inject 2.5 mg every week by subcutane ous route. 09/07 completed Not Available Not Available Not Available Vitals Date Recorded Body height Respiratory rate Body mass index (BMI) Body weight Heart rate Oxygen saturation Oxygen saturation in Arterial blood by Pulse oximetry Systolic blood pressure Diastolic blood pressure Provider Name and Address Organization Details Last Updated DateTime 4 165.1 cm 20 /min 36.6 kg/m2 63781.9 3 g 88 /min 98 % 98 % 152 mm[Hg] 90 mm[Hg] Erlinda Rivas MA [facility] 4 11:15:15 Date Recorded Systolic blood pressure Diastolic blood pressure Provider Name and Address Organization Details Last Updated DateTime 01/23/2024 150 mm[Hg] 80 mm[Hg] WILIAN Abraham Attn: Accounting,[address], [place], [address], [facility] 01/23/2024 12:05:23 Date Recorded Body height Body mass index (BMI) Body weight Respiratory rate Oxygen saturation Oxygen saturation in Arterial blood by Pulse oximetry Heart rate Systolic blood pressure Diastolic blood pressure Provider Name and Address Organization Details Last Updated DateTime 4 165.1 cm 35.9 kg/m2 27499.9 5 g 20 /min 99 % 99 % 79 /min 142 mm[Hg] 88 mm[Hg] Geraldine Burroughs MA [facility] 4 11:54:53 Date Recorded Systolic blood pressure Diastolic blood pressure Provider Name and Address Organization Details Last Updated DateTime 02/20/2024 150 mm[Hg] 90 mm[Hg] WILIAN Abraham Attn: Accounting, [place], [address], [facility] 02/20/2024 12:14:34 Date Recorded Body height Body mass index (BMI) Body weight Oxygen saturation Oxygen saturation in Arterial blood by Pulse oximetry Heart rate Systolic blood pressure Diastolic blood pressure Provider Name and Address Organization Details Last Updated DateTime 165.1 cm 32.8 kg/m2 25149.7 g 97 % 97 % 83 /min 138 mm[Hg] 82 mm[Hg] Geraldine Burroughs MA [facility] 5 10:23:16 Date Recorded Respiratory rate Systolic blood pressure Diastolic blood pressure Provider Name and Address Organization Details Last Updated DateTime 08/27/2024 18 /min 130 mm[Hg] 80 mm[Hg] WILIAN Abraham Attn: Accounting, [address] [place], [address], [facility] 08/27/2024 10:43:32 Social History Question Answer Notes LastModified by Organizat ion Details LastModified Time Tobacco Smoking Status Never Smoker JACKELYN Carmona, [facility] 01/23/2024 11:16:03 Do You Have An Advance Directive? No Information n ot available 01/23/2024 Are You Blind Or Do [...] Date Of Your Most Recent Tobacco Screening? 08/27/2024 Information not available 08/27/2024 What Is Your Relationship Status? Information not available 01/23/2024 Do You Use Your Seat Belt Or Car Seat Routinely? Yes Information not available 02/20/2024 Do You Have Smoke And Carbon Monoxide Detectors In Your Home? Yes Information not available 01/23/2024 Do You Use Sunscreen Routinely? No Information not available 01/23/2024 Has Tobacco Cessation Counseling Been Provided? No Information not available 02/20/2024 Sex: Female Functional Status Question Answer Note LastModified by Organizat ion Details LastModified Time Do you use any illicit or recreational drugs? No Information not available 02/20/2024 Do you or have you ever used any other forms of tobacco or nicotine? No Information not available 02/20/2024 What is your level of alcohol consumption? Occasional Information not available 01/23/2024 Are you able to care for yourself? Yes Information n ot available 01/23/2024 What is your exercise level? Occasional walk Information not available 01/23/2024 Mental Status Question Answer Note LastModified by Organization D etails LastModified Time Do you feel stressed (tense, restless, nervous, or anxious, or unable to sleep at night)? [id number] Information not available 02/20/2024 Family History Relationship Description Onset Age of [...] Immunizations Vaccine Type Date Status Note Provider Martin ornelas and Address Organization Details Recorded Time Tdap 11/04/2020 completed JACKELYN Stevens ID Ladarius [facility] 02/12/2024 13:13:51 zoster live 04/10/2014 completed JACKELYN Stevens [place] 02/12/2024 13:13:51 Past Encounters Encounter ID Performer Location Encounter Start Date Encounter Closed Date Diagnosis/Indication Diagnosis SNOMED-CT Code Diagnosis ICD10 Code Diagnosis Note [id number] Isaias Gaytan MD [facility] [address] [place] [address] 01/23/2024 11:06:20 01/23/2024 12:42:12 Body mass index 30+ - obesity 836464860 Z68.36 fasting insulin due. Hyperlipidemia 95857968 E78.5 fasting lipids are due. she is taking atorvastat in 10mg daily. Long-term drug therapy 166272206 Z79.899 cmp, cbc and b12, folate labs are due Obesity 466181052 E66.8 discussed healthy diet, exercise, controllin g carbohydra nilda and added sugars in the diet Screening mammography 24 693600 Z12.31 Annual mammogram ordered Thyroid di sorder screening 010603631 Z13.29 Routine thyroid tests ordered Diabetes m ellitus screening 921529858 Z13.1 Annual diabetes screen ordered Nasal congestion 8563061 0 R09.81 Patient has been instructed to taper down off of her nasal vasoconstr ictor spray and move to a nasal steroid spray that she could safely take for long-term [id number] Isaias Gaytan MD [facility] [address] [place] [address] 02/20/2024 11:35:33 02/20/2024 12:57:32 Body mass index 30+ - obesity 642660909 Z68.36 BMI is 35.9. start zepbound injectable therapy. no personal or family hx of Medullary thyroid cancer or MEN conditions . Obesity 327521642 E66.9 discussed healthy diet, exercise, controllin g carbohydra nilda and added sugars in the diet Prediabetes 933650901 R7 3.03 A1c is 6.3% on current labs. She will have to focus on decreasing simple carbohydra nilda in the added sugars in her diet. Any exercise will also be helpful to combat glucose elevations . Hyperlipidemia 81474830 E78.5 Labs reviewed and in terrific range. She is taking atorvastat in 10mg daily. Cellulitis and abscess of nose (external) 635141341 J34.0 For impetigo type lesion start Bactroban ointment as directed 3 times a day to the nose and start Augmentin 875 mg twice daily for 10 days. Elevated blood-pressure reading without diagnosis of hypertension 765337854 R03.0 track home readings for 1 week and call with results . medication suggested today. she would like to defer that. She will contact provider with updated home readings. Long-term drug therapy 881953426 Z79.899 Labs reviewed with patient today [id number] Isaias Gaytan MD [facility] [employer] [facility] [address] [place] [address] 08/27/2024 10:07:03 08/27/2024 12:12:45 Obese class I 8626234093 36079 E66.811 discussed healthy diet, exercise, controllin g carbohydra nilda and added sugars in the diet Prediabetes 287627898 R7 3.03 A1c is 6.3% on current labs. Due for updated A1c Hyperlipidemia 46901084 E78.5 due for labs. She is taking atorvastat in 10mg daily. Long-term drug therapy 272944617 Z79.899 cmp, cbc and b12, folate labs are due Body mass index 30+ - obesity 081527545 Z68.32 BMI 32.8 Screening mammography 24 273253 Z12.31 Annual mammogram ordered Thyroid di sorder screening 966686056 Z13.29 Routine thyroid tests ordered History of polyp of colon 717732753 Z86.0100 hx of scope with dr. da silva in [place]. hx of polyps. Patient is due for repeat Benign hypertension 1072 5009 I10 Blood pressure is 130/80 stable on losartan 50 mg daily for blood pressure control Health Concerns Section Related Observation LastModified by Organization Detai ls LastModified Time None Recorded Concern Status LastModified by Organization Details LastModified Time None Recorded Advance Directives Directive N: Payers Encounter Date Sequence Insurance Name Policy Number Policy Rivas Covered Member ID Rivas Member ID Guarantor Name 01/23/2024 1 [place] [id number] Karlie Gaytan [id number] Karlie Adams 02/20/2024 1 [place] [id number] Karlie Gaytan [id number] Karlie Gaytan 08/27/2024 1 [place] [id number] Karlie Gaytan [id number] Karlie Gaytan Notes Date Note Type Note Provider Name and Address Organization Details Recorded Time 01/23/20 24 text/htm l HyperlipidemiaReported bypatient.Notes:pt is taking atorvastatin 20mg daily. WILIAN Abraham Attn: Accounting, [address] [place], [address], [facility] 01/29/2024 18:48:25 02/20/20 24 text/htm l HyperlipidemiaReported bypatient.Notes:pt is taking atorvastatin 20mg daily. Would like to discuss poison tricia on her face as well as a spot on her nose states that it did have some pus coming from it,doesn't itch but it does Hurt to touch States that she did notice a texture A1c of 6.3% on current labs indicating prediabetes is present. WILIAN Abraham Attn: Accounting, [address] [place], [address], [facility] 03/02/2024 22:48:14 08/28/19 25 text/htm l HyperlipidemiaReported bypatient.Notes:pt is taking atorvastatin 20mg daily. Lipid panel in January was terrificHypertensionReported bypatient.Notes:For hypertension patient is taking losartan 50 mg daily for managementReflux/GERDReported bypatient.Notes:Reflux is managed through omeprazole 40 mg daily. A1c of 6.3% on January 2024 labs indicating prediabetes is present. WILIAN Abraham Attn: Accounting, [address] [place], [address], [facility] - [facility] 09/07/2024 23:49:40 OBGyn Episode No OBEpisode recorded.
--- OUTSIDE RECORDS SUMMARY | 2024-09-17 10:47 | XMS_ITS | Clinical Summary ---
Author Organization [facility] Address [address] Attn: Epic Prelude ADT MICHAEL MOORE [address] Care Team Providers Care Grease Monkey Name Role Phone Unavailable Primary Care Provider Unavailabl e Medications prednisoLONE acetate (PRED FORTE) 1 % suspension Administer 1 drop into left eye 4 times daily for 7 days, then decrease to twice daily for 3 days 5 mL 2 5:30 PM CDT 09/29/19 22 Active atorvastatin (Lipitor) 10 mg tablet Take 1 Tablet (10 mg) by mouth daily. 30 Tablet 1 2 5:44 PM CDT 11/02/19 22 Active azithromycin (Zithromax Z-Jonathan) 250 mg tablet TAKE 2 TABLETS (500 MG) BY ORAL ROUTE ONCE DAILY FOR 1 DAY THEN 1 TABLET (250 MG) BY ORAL ROUTE ONCE DAILY FOR 4 DAYS 6 Tablet 2 2:27 PM CDT 02/21/20 22 Active methylPREDNISo lone (Medrol, Jonathan,) 4 mg Tablets, Dose Pack TAKE DIRECTED ON PACKAGE. 21 Tablet 2 6:28 PM CDT 02/23/20 22 Active methylPREDNISo lone (MEDROL DOSPACK) 4 mg Tablets, Dose Pack USE DIRECTED 21 Tablet 3 3:32 PM CDT 09/16/19 23 Active atorvastatin (Lipitor) 20 mg tablet Take 1 Tablet (20 mg) by mouth daily. 90 Tablet 1 3 6:06 PM CDT 09/20/19 23 Active semaglutide, weight loss, (Wegovy) 0.25 mg/0.5 mL Pen Injector Inject 0.25 under the skin weekly for 4 weeks, then increase to 0.5 mg weekly. 2 mL 09/20/19 23 Active azithromycin (Zithromax Z-Jonathan) 250 mg tablet TAKE 2 TABLET BY MOUTH ON DAY 1, THEN TAKE 1 TABLET BY MOUTH DAILY FOR DAYS 2-5 6 Tablet 3 5:21 PM CDT 02/27/20 23 Active atorvastatin (Lipitor) 20 mg tablet Take 1 Tablet (20 mg) by mouth daily. 90 Tablet 1 4 1:07 PM CDT 04/19/20 23 Active atorvastatin (LIPITOR) 20 mg tablet Take 1 Tablet (20 mg) by mouth daily. 90 Tablet 3 4 2:54 PM CDT 02/20/20 24 Active tirzepatide, weight loss, (Zepbound) 2.5 mg/0.5 mL Pen Injector Inject 2.5 mg under the skin once weekly 2 mL 02/20/20 24 Active famotidine (PEPCID) 20 mg tablet Take 1 Tablet (20 mg) by mouth daily at bedtime as needed. 30 Tablet 3 4 1:23 PM CDT 02/21/20 24 Active omeprazole (PriLOSEC) 40 mg Capsule, Delayed Release(E.C.) Take 1 Capsule (40 mg) by mouth daily in the morning 1/2 to 1 hours before breakfast. 30 Capsule 3 5 4:40 PM CDT 02/21/20 24 Active losartan (COZAAR) 50 mg tablet Take 1 tablet (50 mg) by mouth daily for blood pressure. 90 Tablet 3 5 4:40 PM CDT 02/25/20 24 Active atorvastatin (LIPITOR) 20 mg tablet Take 1 Tablet (20 mg) by mouth daily. 90 Tablet 1 5 4:40 PM CDT 05/12/19 25 Active cephALEXin (KEFLEX) 500 mg capsule Take 1 capsule by mouth three times daily for 7 days 21 Capsule 5 5:51 PM CDT 07/31/19 25 Active traMADol (ULTRAM) 50 mg tablet TAKE 1 TABLET BY MOUTH EVERY 6 HOURS NEEDED FOR SIGNIFICANT PAIN 24 Tablet 5 5:51 PM CDT 07/31/19 25 Active tirzepatide, weight loss, (Zepbound) 2.5 mg/0.5 mL Pen Injector Inject 2.5 mg by subcutaneous injection every 7 days. 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
--- OUTSIDE RECORDS SUMMARY | 2024-09-17 10:47 | XMS_ITS | Continuity of Care Document ---
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 Prevagen Once a day - Acti ve biotin 2,500 mcg capsule - Active albuterol sulfate HFA 90 mcg/actuation aerosol inhaler inhale 2 puff by inhalation route every 4 - 6 hours as needed - Active fluticasone 100 mcg-salmeterol 50 mcg/dose blistr powdr for inhalation inhale 1 puff by inhalation route 2 times every day in the morning and evening approximately 12 hours apart 1.00 puff - Active Advance Directives Directive Yes / No Effective Date File Name No Information Encounters Encounter Description Practice Location Reason(s) For Visit Diagnoses Date Provider Bel Vino, [address], [place], [place], [id number], tel:[phone] [facility] No Information 1 Arnoldo Jorge. [facility] [place], [id number], . tel:[phone] Bel Vino, [address], [place], [place], [id number], tel:[phone] [facility] establish pt (chief complaint)asthm a (chief complaint) Mild intermittent asthma, uncomplicatedEncount er for adult annual physical exam w/ abnormal findingGoiter Jun- 0 Luppino Ania. [address] [place], [place], [id number], [place]. tel:[phone] Bel Vino, [address], [place], [place], [id number], [place] tel:[phone] [facility] No Information 4 Rome Carrillo. [address] [place], [place], [id number], [place]. tel:[phone] Bel Vino, [address], [place], [place], [id number], [place] tel:[phone] [facility] No Information - 4 Deion Guaman. [address] [place], [place], [id number], [place]. tel:[phone] Bel Vino, [address], [place], [place], [id number], [place] tel:[phone] [facility] Follow Up of asthma (chief complaint)Follo w Up of hyperlipidemia (chief complaint)Follo w Up of elevated BP (chief complaint)Follo w Up of anxiety (chief complaint) ELEVATED BPMixed Hyperlipidemia 0 3 Gongloff Agnes. [address] [place], [place], [id number], [place]. tel:[phone] Bel Vino, [address], [place], [place], [id number], [place] tel:[phone] [facility] medication refill (chief complaint)refer ral to a surgeon to remove mole on face (chief complaint)eye lashes falling out (chief complaint) ELEVATED BPCapillary Nevus, Non-neoplasticMixed HyperlipidemiaMalign ant Neoplasm, Breast 3 Kasandra Gaines. [address] [place], [place], [id number], [place]. tel:[phone] Bel Vino, [address], [place], [place], [id number], [place] tel:[phone] [facility] endometrial biopsy (chief complaint) Postmenopausal Bleeding 1 Hawari Samer. [address] [place], [id number], [place]. tel:[phone] Bel Vino, [address], [place], [place], [id number], tel:[phone] [facility] ! anxiety (chief complaint)vagin al bleeding (chief complaint) Postmenopausal BleedingBreast Cancer, Female, Unspecified 3- 1 Hawari Samer. [address] [place], [id number], [place]. [phone] Bel Vino, [address], [place], [place], [id number], tel:[phone] [facility] ! anxiety (chief complaint) Postmenopausal Bleeding 1 Hawari Samer. [address] [place] [address], [id number], [place]. tel:[phone] Bel Vino, [address], [place], [place], [id number], [place] tel:[phone] [facility] ! PAP test (chief complaint) WELL WOMANPostmenopausal BleedingBreast Cancer, Female, Unspecified Sep-2 0- 1 Damion Castillo. [address] [place] [address], [id number], . tel:[phone] Bel Vino, [address], [place], [place], [id number], [place] tel:[phone] Jacqueline Fresh ! No Information 1 Hawari Samer. [address] [place], [place], [id number], [place]. tel:[phone] Bel Vino, [address] [place], [id number], [place] tel:[phone] [facility] ! anxiety (chief complaint) No Information 1 Hawari Samer. [address] [place] [address], [id number], [place]. tel:[phone] Bel Vino, [address] [place], [place], [address] [place] [address], tel:[phone] [facility] ! depression (chief complaint)asthm a (chief complaint) No Information 1 Hawari Samer. [address] [place] [address], [address] [place] [address], . tel:[phone] Bel Vino, [address], [place], [address] [place] [address], tel:[phone] [facility] ! No Information 0 Gongloff Agnes. [address] [place] [address], [address] [place] [address], . tel:[phone] Bel Vino, [address], [place], [address] [place] [address], tel:[phone] [facility] vaginal discharge (chief complaint) No Information 0 Gongloff Agnes. [address] [place] [address], [address] [place] [address], . tel:[phone] Bel Vino, [address], [place], [place], [id number], tel:[phone] [facility] ! physical exam (chief complaint)hyper lipidemia (chief complaint)labs (chief complaint)asthm a (chief complaint) Hyperlipidemia, mixedRoutine Gen. Med. Exam. at [facility]. 9 Hawari Samer. [address] [place] [address], [address] [place] [address], . tel:[phone] Bel Vino, [address], [place], [place], [id number], tel:[phone] [facility] ! No Information 9 Hawari Samer. [address] [place] [address], [id number], . tel:[phone] Bel Vino, [address], [place], [place], [id number], tel:[phone] [facility] asthma (chief complaint)anxie ty (chief complaint)hyper lipidemia (chief complaint) Hyperlipidemia, mixed Sep-1 4-200 9 Hawari Samer. [address] [place] [address], [id number], [place]. tel:[phone] Bel Vino, [address], [place], [place], [id number], tel:[phone] [facility] pre-operative evaluation (chief complaint) No Information Dec-1 0-200 8 Damion Anna. [address] [place], [place], [id number], [place]. tel:[phone] [facility], [address], [place], [place], [id number], tel:[phone] [facility] No Information Dec-0 8-200 8 Hawari Samer. [address] [place] [address], [id number], . tel:[phone] Bel Vino, [address], [place], [place], [id number], tel:[phone] [facility] sore throat (chief complaint) No Information 1 2-200 8 Gongloff Agnes. [address] [place] [address], [id number], [place]. tel:[phone] Bel Vino, [address] [place], [id number], tel:[phone] [facility] No Information Nov-2 7-200 8 Gongloff Agnes. [address] [place], [place] [address] [place], [place], [id number], [place]. tel:[phone] Bel Vino, [address] [place], [id number], [place] tel:[phone] [facility] No Information Nov-2 7-200 8 Gongloff Agnes. [address] [place] [address], [id number], [place]. tel:[phone] Bel Vino, [address] [place], [place], [id number], [place] tel:[phone] [facility] asthma (chief complaint)? regarding advair med (chief complaint)anxie ty (chief complaint) No Information 8 [facility] [address] [place], [place], [id number], . tel:[phone] Bel Vino, [address] [place], [id number], tel:[phone] [facility] No Information 8 Trentari Samer. [address] [place], [place], [id number], . tel:[phone] [facility], [address] [place], [id number], tel:[phone] [facility] est new pt (chief complaint) No Information 7 [facility]. [address] [place], [place], [id number], . tel:[phone] Family History Family Member Type Diagnosis Age [...] (split) (3 yrs or older) administered Note: [id number] ; Source: New Immunization Record Payers Payer name Insurance type Covered constitution party ID Authoriza tion(s) No Information Social History Type Description Quantity Date Captured Comments Sex Female Smoking Status No Information Chief Complaint And Reason For Visit No Information Plan Of Treatment Date Type Action Status Goal Pneumococcal vaccine due Goal Pap/HPV testing. Due on due Goal Shingrix (2nd). Due on due Goal Influenza Vaccine. Due on due Goal PAP. Due on due Goal Lipid Panel. Due on 015 due Goal FOBT. Due on due Goal Colonoscopy. Due on 021 due Goal Breast exam. Due on 020 due Goal H&P. Due on due Goal Depression screening. Due on due Goal Tdap due Goal Shingrix (). Due on due Goal Mammogram. Due on 3 due Goal H&P. Due on due Goal PAP. Due on due Goal Influenza Vaccine. 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 Due on due Goal Breast exam. Due on 012 due Goal Lipid Panel. Due on 012 due Goal Influenza Vaccine. Due on due Goal Mammogram. Due on 3 due Goal H&P. Due on due Goal TD Vaccine. Due on 04 due Goal Lipid Panel. Due on 011 due Goal Colonoscopy. Due on 011 due Goal BACK TENDER PAPER MACHINE exam. Due on due Goal FOBT. Due on due Goal PAP. Due on due Goal Breast exam. 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
== END 2024-09-17 10:14 | disposition home or self-care (01) ==
LOC: CHSIMG 10:15
PROVIDERS: PCP Physician Assistant; Visit Provider Physician Assistant
DX: Z12.31 Encounter for screening mammogram for malignant neoplasm of breast (principal)
CPT/HCPCS: 77063; 77067

== ENCOUNTER 2025-01-17 12:13 | Emergency (ER) | payer BC, SELFPAY ==
--- NOTE | 2025-01-17 12:22 | ED.WOUNDLAC ---
HPI - Wound/Laceration General Chief Complaint: Wound/Laceration Stated Complaint: finger laceration Time Seen by Provider: 01/17/25 12:27 Source: patient and RN notes reviewed Mode of arrival: ambulatory Limitations: no limitations History of Present Illness HPI narrative: 64-year-old female presents with concern for laceration to the use of the 3rd digit of the left hand. She reports she was using a garden tool prior to arrival and she cut her finger. She denies decreased strength, sensation, range of motion in the digit. Related Data Home Medications ?Medication ?Instructions ?Recorded ?Confirmed ?Last Taken ?Type atorvastatin 20 mg tablet mg 01/17/25 Unknown History losartan 50 mg tablet mg 01/17/25 Unknown History Allergies Allergy/AdvReac Type Severity Reaction Status Date / Time No Known Allergies Allergy Verified 01/17/25 12:29 Review of Systems Review of Systems: CONSTITUTIONAL: Denies malaise, chills, sweats, or fever. SKIN: Reports laceration to the 3rd digit of the left hand MUSCULOSKELETAL: Denies muscle skeletal pain NEUROLOGIC: Denies numbness, weakness All systems reviewed & are unremarkable except as noted in HPI and below PMFSH Past Medical History Medical History (Updated 01/17/25 @ 12:36 by Cherelle Callahan NP) Obesity Surgical History Surgical History (Updated 12/22/20 @ 09:45 by Fabricio Goode MD) History of cholecystectomy Social History Social History Smoking status: Never smoker Alcohol intake: current Drinks per week: 1 Substance use: never Substance use type: does not use Living arrangements: with family Spiritual care concerns: No Comments At time of signature, agree with nursing past medical, surgical, social and family history. There is no relevant family history pertinent to the presenting complaint Exam Narrative: GENERAL: Well-appearing, well-nourished, and in no acute distress. HEAD: Normocephalic, atraumatic. EYES: PERRLA, conjunctivae clear ENT: Mucous membranes moist. NECK: Supple. No lymphadenopathy CHEST: Clear to auscultation. No respiratory distress. HEART: Regular rate and rhythm. SKIN: Warm, dry. 1.5 cm laceration into the subcutaneous tissue on the palmar aspect of the 3rd digit of the left hand NEURO: Alert and oriented x3. PSYCH: Normal mood and affect Course Course Emergency Course: Patient is aware of diagnosis, understands and agrees to treatment plan. Anticipatory guidance given. Patient agrees to follow-up as directed and is aware of reasons to seek care at the emergency department. Portions of this record may have been created with voice recognition software Level of Care: Express Care Visit Vital Signs Vital signs: Vital Signs Temperature 96.7 F L 01/17/25 12:28 Pulse Rate 97 01/17/25 12:28 Respiratory Rate 16 01/17/25 12:28 Blood Pressure 149/89 H 01/17/25 12:28 Pulse Oximetry 100 01/17/25 12:28 Temperature 96.7 F L 01/17/25 12:28 Pulse Rate 97 01/17/25 12:28 Respiratory Rate 16 01/17/25 12:28 Blood Pressure 149/89 H 01/17/25 12:28 Pulse Oximetry 100 01/17/25 12:28 Reviewed. Procedures Laceration Laceration 1: Date: 01/17/25 Time: 12:32 Site: hand Side (If applicable): left Size (cm): 2 Description: linear Depth: simple, single layer Amount of anesthesia used (mL): 3 ====== Skin Level ====== ====== Subcutaneous Layer ====== ====== Muscle Layer ====== ====== Tendon Layer ====== MDM - Wound/Laceration MDM Narrative Medical decision making narrative: Wound explored for foreign body and copious irrigation provided with no evidence of FB. Discussed the potential of retained foreign body with the patient and signs/symptoms that should prompt the patient to immediately go to the ED for reevaluation. The wound was explored and no foreign bodies were found. There was no evidence of tendon or nerve lacerations. A sterile dressing was then applied and anticipatory guidance was provided. Tetanus prophylaxis was not given Differential Diagnosis Differential diagnosis: Likely laceration, abrasion and avulsion of skin Critical Care Time Critical Care Time Critical Care Time: No Discharge Plan Discharge Clinical Impression: Laceration Patient Disposition: Home Condition: Stable Instructions: Laceration (ED) Additional Instructions: Keep wound clean, and dry. Apply antibiotic ointment twice daily. Cover with bandage as needed to prevent contamination. Clean with soap and water twice daily, but do not soak, take baths, or swim until wound is completely healed. Do not clean with hydrogen peroxide. If any signs of infection such as redness, swelling, increasing pain, drainage of purulent discharge, streaks up your extremity develop, seek medical attention immediately. Followup with your primary care provider in 10 days for suture removal. After sutures are removed, keep your scar out of the sun. You may use OTC silicone pad and/or scar massage with ointment (for 10-15 min a day) after one month. Talk to your doctor if you think you are developing a keloid. Patient Language: Montenegrin Prescriptions: No Action losartan 50 mg tablet atorvastatin 20 mg tablet Follow-up/Referrals: Juan,[facility] Winter [Primary Care Provider, Unknown] Time of Disposition: 13:09
[2025-01-17 12:28] VITALS: BP 149/89; PULSE 97; RESP 16; TEMP 35.9; O2SAT 100
== END 2025-01-17 13:18 | disposition home or self-care (01) ==
PROVIDERS: Emergency Provider Nurse Practitioner; PCP Physician Assistant
DX: S61.213A Laceration without foreign body of left middle finger without damage to nail, initial encounter (principal); W27.8XXA Contact with other nonpowered hand tool, initial encounter; Y93.H2 Activity, gardening and landscaping; E66.9 Obesity, unspecified; Z68.31 Body mass index [BMI] 31.0-31.9, adult
CPT/HCPCS: 12001; 99212; G0463; J2003

== ENCOUNTER 2025-03-24 10:46 | Outpatient (CLI) | payer BC, SELFPAY ==
--- NOTE | ~2025-03-24 | XR_ITS ---
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 Findings: No acute fracture or malalignment. Moderate degenerative changes Soft tissues unremarkable. Impression: No acute fracture or malalignment. Reviewed, dictated and finalized at location P. MA HAT HYDRAULIC PRESS OPERATOR Impression: No acute fracture or malalignment.
== END 2025-03-24 10:47 | disposition home or self-care (01) ==
LOC: MICIMG 10:48
PROVIDERS: PCP Physician Assistant; Visit Provider Physician Assistant
DX: M19.042 Primary osteoarthritis, left hand (principal); S69.92XD Unspecified injury of left wrist, hand and finger(s), subsequent encounter; X58.XXXD Exposure to other specified factors, subsequent encounter
CPT/HCPCS: 73140